=== PATIENT | female | born 1935 | race Caucasian/White ===

== ENCOUNTER → 2018-01-13 09:32 | Outpatient (CLI) | payer MEDICARE, SELFPAY ==
--- NOTE | 2018-01-13 | DI.ECHO.S_ITS ---
[place]---------+ [facility] +---------+ : : [address] : [address] : : : : [id number] : : : : Phone: [phone] Echocardiogram Report + + :Name: EDWARD MONREAL Study Date: 01/13/2018 Height: 68 in : :[facility] Weight: 139 lb : : Gender: Female BSA: 1.8 m2 : :: 1935 Age: 82 yrs BP: 190/88 mmHg: :Reason For Study: CAD : :Ordering Physician: Mark : :Juma Mckeon Performed By: Ling Cox : :Referring: Dr. Keith Grewal : + + Interpretation Summary Normal left ventricle size with ejection fraction 55-60%. Grade II diastolic dysfunction. Severely dilated left atrium. Mild aortic regurgitation. Mild mitral annular calcification. Mild both mitral valve leaflet prolapse. Mild to moderate mitral regurgitation. Mild to moderate tricuspid regurgitation. The right ventricular systolic pressure is estimated at 37 mmHg assuming a right atrial pressure of 3 mm Hg. Comparison is made with the echocardiogram of 01-03-15, diastolic dysfunction has worsen and left atrium size has increased. Procedure: A two-dimensional transthoracic echocardiogram with color flow and Doppler was performed. The study quality was technically adequate. Comparison is made with the echocardiogram of 01-03-15. The patient was in atrial fibrillation with heart rates between 61-64 bpm during the exam. Left Ventricle: The left ventricle is normal in size. There is normal left ventricular wall thickness. The ejection fraction is estimated to be 55-60%. There are no obvious focal wall motion abnormalities noted but poor endocardial definition reduces the sensitivity for the detection of such. Grade II diastolic dysfunction. Right Ventricle: The right ventricle grossly appears normal in size with probable normal systolic function. Atria: The left atrium is severely dilated. Right atrial size is normal. The interatrial septum is intact with no evidence for an atrial septal defect. Mitral Valve: The mitral valve leaflets appear mildly thickened, but open well. There is mild mitral annular calcification. There is mild mitral valve prolapse. There is mild to moderate mitral regurgitation. Aortic Valve: The aortic valve is trileaflet. The aortic valve opens well. There is mild aortic regurgitation. Tricuspid Valve: The tricuspid valve leaflets are thin and pliable. There is mild to moderate tricuspid regurgitation. The right ventricular systolic pressure is estimated at 37 mmHg assuming a right atrial pressure of 3 mm Hg. Pulmonic Valve: The pulmonic valve is normal in structure and function. There is trace pulmonic regurgitation. Great Vessels: The aortic root is normal size. The dimensions of the ascending aorta are normal. The IVC is of normal diameter and collapses greater than 50% with a sniff. This suggests a low right atrial pressure of 3 mm Hg. Pericardium/ Pleura There is no pericardial effusion. There is no pleural effusion. MMode/2D Measurements & Calculations LVIDd: 4.6 cm Ao root diam: 3.2 cm LVIDs: 3.3 cm Aortic Jxn: 2.6 cm FS: 27.6 % asc Aorta Diam: 3.2 cm EPSS: 0.31 cm Ao Arch Diam (Prox Trans): 2.5 cm IVSd: 0.77 cm LVPWd: 0.92 cm LV jimenez. diameter/BSA (cm/m^2): 2.6 LV sys. diameter/BSA (cm/m^2): 1.9 LA dimension: 4.1 cm RA long axis: 4.6 cm LA A2 area: 28.5 cm2 RA area: 16.9 cm2 LA A4 area: 28.3 cm2 RA vol: 53.2 ml LA length (vol): 5.8 cm RA : 30.4 ml/m2 LA vol: 117.7 ml IVC diam: 1.9 cm LA vol index: 67.2 ml/m2 RVDd major: 5.4 cm RVD1 (basal): 3.3 cm RVD2 (mid): 2.7 cm Doppler Measurements & Calculations Ao V2 max: 114.8 cm/sec MV E max steve: 90.8 cm/sec Ao V2 mean: 74.5 cm/sec MV A max steve: 86.4 cm/sec Ao max P.3 mmHg MV E/A: 1.1 Ao mean P.6 mmHg Med Peak E' Steve: 2.9 cm/sec Ao V2 VTI: 30.2 cm E/E' med: 30.8 Lat Peak E' Steve: 5.5 cm/sec E/E' lat: 16.4 E/e' average: 23.6 MV dec time: 0.23 sec MV P1/2t: 67.1 msec MR ERO: 0.07 cm2 TR max steve: 292.5 cm/sec MV P1/2t max steve: 90.3 cm/sec TR max P.2 mmHg MVA(P1/2t): 3.3 cm2 PA V2 max: 88.9 cm/sec PA V2 mean: 56.9 cm/sec PA mean P.5 mmHg PA Accel Time: 0.10 sec MR flow rate: 45.3 cm3/sec MR PISA radius: 0.44 cm Electronically signed by: Mark Mckeon on Reading Physician:01/13/2018 05:48 PM
== END ==
PROVIDERS: PCP Family Medicine; Visit Provider Internal Medicine Interventional Cardiology
DX: I25.10 Atherosclerotic heart disease of native coronary artery without angina pectoris (principal)
CPT/HCPCS: 93306

== ENCOUNTER → 2018-05-22 10:05 | Outpatient (CLI) | payer MEDICARE, SELFPAY | PROVIDERS: PCP Family Medicine; Visit Provider Family Medicine | DX: M85.852 Other specified disorders of bone density and structure, left thigh (principal); Z78.0 Asymptomatic menopausal state | CPT/HCPCS: 77080 ==

== ENCOUNTER → 2018-11-09 10:13 | Outpatient (REF) | payer MEDICARE, SELFPAY ==
[2018-11-09 10:32] LABS: INR 3.5 (0.9-1.3); Prothrombin Time 41.3 SECONDS (10.1-12.7)
== END ==
LOC: LAB 10:13
PROVIDERS: PCP Family Medicine; Visit Provider Family Medicine
DX: Z79.01 Long term (current) use of anticoagulants (principal)
CPT/HCPCS: 85610

== ENCOUNTER → 2018-12-06 08:50 | Outpatient (REF) | payer MEDICARE, SELFPAY ==
[2018-12-06 09:08] LABS: Prothrombin Time 59.1 SECONDS (10.1-12.7)
== END ==
LOC: LAB 08:50
PROVIDERS: PCP Family Medicine; Visit Provider Family Medicine
DX: Z79.01 Long term (current) use of anticoagulants (principal)
CPT/HCPCS: 85610

== ENCOUNTER → 2018-12-20 09:12 | Outpatient (ROUT) | payer MEDICARE, SELFPAY ==
[2018-12-20 10:01] LABS: INR 3.1 (0.9-1.3); Prothrombin Time 36.3 SECONDS (10.1-12.7)
== END ==
PROVIDERS: PCP Family Medicine; Visit Provider Family Medicine
DX: Z79.01 Long term (current) use of anticoagulants (principal)
CPT/HCPCS: 85610

== ENCOUNTER → 2019-01-03 11:25 | Outpatient (ROUT) | payer MEDICARE, SELFPAY ==
[2019-01-03 12:01] LABS: INR 4.1 (0.9-1.3); Prothrombin Time 48.5 SECONDS (10.1-12.7)
== END ==
PROVIDERS: PCP Family Medicine; Visit Provider Family Medicine
DX: Z79.01 Long term (current) use of anticoagulants (principal)
CPT/HCPCS: 85610

== ENCOUNTER → 2019-01-17 09:53 | Outpatient (ROUT) | payer MEDICARE, SELFPAY ==
[2019-01-17 09:59] LABS: INR 1.7 (0.9-1.3)
== END ==
PROVIDERS: PCP Family Medicine; Visit Provider Family Medicine
DX: Z79.01 Long term (current) use of anticoagulants (principal)
CPT/HCPCS: 85610

== ENCOUNTER → 2019-01-31 08:09 | Outpatient (ROUT) | payer MEDICARE, SELFPAY ==
[2019-01-31 08:18] LABS: INR 2.2 (0.9-1.3); Prothrombin Time 25.9 SECONDS (10.1-12.7)
== END ==
PROVIDERS: PCP Family Medicine; Visit Provider Family Medicine
DX: Z79.01 Long term (current) use of anticoagulants (principal)
CPT/HCPCS: 85610

== ENCOUNTER → 2019-02-19 09:43 | Outpatient (ROUT) | payer MEDICARE, SELFPAY ==
[2019-02-19 09:52] LABS: INR 1.4 (0.9-1.3)
== END ==
PROVIDERS: PCP Family Medicine; Visit Provider Student in an Organized Health Care Education/Training Program
DX: Z79.01 Long term (current) use of anticoagulants (principal)
CPT/HCPCS: 85610

== ENCOUNTER → 2019-03-01 08:26 | Outpatient (ROUT) | payer MEDICARE, SELFPAY ==
[2019-03-01 08:41] LABS: INR 1.3 (0.9-1.3); Prothrombin Time 15.1 SECONDS (10.1-12.7)
== END ==
PROVIDERS: PCP Family Medicine; Visit Provider Student in an Organized Health Care Education/Training Program
DX: Z79.01 Long term (current) use of anticoagulants (principal)
CPT/HCPCS: 85610

== ENCOUNTER → 2019-03-08 10:30 | Outpatient (ROUT) | payer MEDICARE, SELFPAY ==
[2019-03-08 10:40] LABS: INR 1.4 (0.9-1.3); Prothrombin Time 15.7 SECONDS (10.1-12.7)
== END ==
PROVIDERS: Visit Provider Student in an Organized Health Care Education/Training Program
DX: Z79.01 Long term (current) use of anticoagulants (principal)
CPT/HCPCS: 85610

== ENCOUNTER → 2019-03-22 09:05 | Outpatient (ROUT) | payer MEDICARE, SELFPAY ==
[2019-03-22 09:24] LABS: INR 1.6 (0.9-1.3); Prothrombin Time 18.2 SECONDS (10.1-12.7)
== END ==
PROVIDERS: Visit Provider Student in an Organized Health Care Education/Training Program
DX: Z79.01 Long term (current) use of anticoagulants (principal)
CPT/HCPCS: 85610

== ENCOUNTER → 2019-04-11 09:43 | Outpatient (ROUT) | payer MEDICARE, SELFPAY ==
[2019-04-11 10:02] LABS: INR 1.9 (0.9-1.3); Prothrombin Time 21.7 SECONDS (10.1-12.7)
== END ==
PROVIDERS: Visit Provider Student in an Organized Health Care Education/Training Program
DX: Z79.01 Long term (current) use of anticoagulants (principal)
CPT/HCPCS: 85610

== ENCOUNTER → 2019-07-11 08:53 | Outpatient (ROUT) | payer MEDICARE, SELFPAY ==
[2019-07-11 09:03] LABS: INR 2.7 (0.9-1.3); Prothrombin Time 31.6 SECONDS (10.1-12.7)
== END ==
PROVIDERS: Visit Provider Student in an Organized Health Care Education/Training Program
DX: Z79.01 Long term (current) use of anticoagulants (principal)
CPT/HCPCS: 85610

== ENCOUNTER → 2019-08-17 14:21 | Outpatient (ROUT) | payer MEDICARE, SELFPAY ==
[2019-08-17 14:41] LABS: INR 3.2 (0.9-1.3); Prothrombin Time 38.1 SECONDS (10.1-12.7)
== END ==
PROVIDERS: Visit Provider Student in an Organized Health Care Education/Training Program
DX: Z79.01 Long term (current) use of anticoagulants (principal)
CPT/HCPCS: 85610

== ENCOUNTER → 2019-09-12 11:16 | Outpatient (ROUT) | payer MEDICARE, SELFPAY ==
[2019-09-12 11:25] LABS: INR 1.9 (0.9-1.3); Prothrombin Time 22.1 SECONDS (10.1-12.7)
== END ==
PROVIDERS: Visit Provider Student in an Organized Health Care Education/Training Program
DX: Z79.01 Long term (current) use of anticoagulants (principal)
CPT/HCPCS: 85610

== ENCOUNTER → 2019-10-10 09:50 | Outpatient (ROUT) | payer MEDICARE, SELFPAY ==
[2019-10-10 10:15] LABS: INR 5.2 (0.9-1.3)
== END ==
PROVIDERS: Visit Provider Student in an Organized Health Care Education/Training Program
DX: Z79.01 Long term (current) use of anticoagulants (principal)
CPT/HCPCS: 85610

== ENCOUNTER → 2019-10-24 09:59 | Outpatient (ROUT) | payer MEDICARE, SELFPAY ==
[2019-10-24 10:18] LABS: INR 3.7 (0.9-1.3); Prothrombin Time 41.8 SECONDS (10.1-12.7)
== END ==
PROVIDERS: Visit Provider Student in an Organized Health Care Education/Training Program
DX: Z79.01 Long term (current) use of anticoagulants (principal)
CPT/HCPCS: 85610

== ENCOUNTER → 2019-11-07 11:40 | Outpatient (ROUT) | payer MEDICARE, SELFPAY ==
[2019-11-07 12:00] LABS: INR 2.1 (0.9-1.3); Prothrombin Time 23.8 SECONDS (10.1-12.7)
== END ==
PROVIDERS: Visit Provider Student in an Organized Health Care Education/Training Program
DX: Z79.01 Long term (current) use of anticoagulants (principal)
CPT/HCPCS: 85610

== ENCOUNTER → 2019-12-05 10:18 | Outpatient (ROUT) | payer MEDICARE, SELFPAY ==
[2019-12-05 10:30] LABS: INR 2.5 (0.9-1.3)
== END ==
PROVIDERS: Visit Provider Student in an Organized Health Care Education/Training Program
DX: Z79.01 Long term (current) use of anticoagulants (principal)
CPT/HCPCS: 85610

== ENCOUNTER 2020-01-10 05:16 | Observation (INO) | payer MEDICARE, SELFPAY ==
[2020-01-10] VITALS (11 sets, daily range): BP systolic 134–229; BP diastolic 67–108; PULSE 52–62; RESP 15–18; TEMP 36.1–36.6; O2SAT 92–98; BMI 24.5
--- NOTE | 2020-01-10 05:33 | ED.BACK ---
HPI - Back Pain/Injury <Gaurav Warren, DO - Last Filed: 01/12/20 07:46> General Chief Complaint: Back Pain/Injury Stated Complaint: middle back pain going to front Time Seen by Provider: 01/10/20 05:17 Source: patient and family Mode of arrival: Ambulatory Limitations: no limitations History of Present Illness HPI Narrative: 84F nonsmoker with history of HTN presents with her and the chief complaint of R flank and is beginning to wrap around her side. She states that at times it is very intense and at others it is more mellow. She states at times it worsens on its own. She denies fever or chills. She has had no N/V/D. She denies dysuria, frequency, or urgency. She denies any injury. She has no history of the same. MD Complaint: back pain Onset (ago): day(s) Duration: intermittent Similar Symptoms Previously: No Location: right flank Severity: moderate Quality: sharp and aching Radiation: flank Relieving factors: none Exacerbating factors: none Associated symptoms: denies other symptoms Related Data Home Medications Medication Instructions Recorded Confirmed MULTIVITAMIN (MULTI-VITAMINS) 1 tab PO Q DAY #0 02/17/11 01/10/20 aspirin 81 mg PO EVERY OTHER DAY #0 02/17/11 01/10/20 calcium carbonate-vitamin D3 1 cap PO QDAY #0 02/17/11 01/10/20 [Calcium 600 with Vitamin D3] cholecalciferol (vitamin D3) 300 unit PO QDAY #0 02/17/11 01/10/20 [Vitamin D3] omega [id number] oil [Fish Oil] 1,000 mg PO QDAY #0 02/17/11 01/10/20 simvastatin [Zocor] 40 mg PO QPM #0 02/17/11 01/10/20 PreserVision AREDS 1 cap PO QDAY #0 05/16/17 01/10/20 calcium polycarbophil [FiberCon] 1 tab PO QDAY #0 05/16/17 01/10/20 losartan 50 mg PO BID #0 05/16/17 01/10/20 melatonin 5 mg PO QPM #0 05/16/17 01/10/20 warfarin [Coumadin] See Rx Instructions .ROUTE 10/02/17 05/28/20 .COMPLEX #0 zolpidem 5 mg PO HSP PRN #0 05/16/17 01/10/20 Previous Rx's Medication Instructions Recorded atenolol 25 mg PO BID 30 Days #60 tab 01/11/20 psyllium husk [Metamucil] 2 tsp PO BID #660 gram 01/11/20 sennosides [senna] 8.6 mg PO BID #1 tab 01/11/20 Allergies Allergy/AdvReac Type Severity Reaction Status Date / Time amoxicillin [AMOXICILLIN] Allergy Severe Hives Verified 01/10/20 05:33 Sulfa (Sulfonamide Allergy Severe Hives Verified 01/10/20 05:34 Antibiotics) Review of Systems <Gaurav Warren, DO - Last Filed: 01/12/20 07:46> Constitutional Constitutional: Denies chills, Denies fatigue, Denies fever(s), Denies frequent falls, Denies lethargy and Denies weakness Eyes Eyes: Denies change in vision, Denies eye discharge, Denies irritation and Denies loss of vision ENT Ears, Nose, Mouth, and Throat: Denies change in voice, Denies dizziness, Denies neck pain, Denies sore throat and Denies throat swelling Cardiovascular Cardiovascular: Denies chest pain, Denies irregular heart rhythm, Denies lightheadedness, Denies palpitations, Denies dyspnea, Denies dyspnea on exertion and Denies orthopnea Respiratory Respiratory: Denies cough, Denies dyspnea, Denies dyspnea on exertion and Denies wheezing Gastrointestinal Gastrointestinal: Denies abdominal pain, Denies change in bowel habits, Denies diarrhea, Denies nausea and Denies vomiting Genitourinary Genitourinary: Denies hematuria, Denies flank pain, Denies urinary incontinence and Denies urinary urgency Musculoskeletal Musculoskeletal: Reports back pain, Denies muscle weakness, Denies neck pain, Denies numbness and Denies tingling Integumentary/Breasts Skin/Breast: Denies pruritus, Denies erythema, Denies rash and Denies wounds Neurologic Neurologic: Denies behavioral changes, Denies confusion, Denies dizziness, Denies frequent falls, Denies loss of vision, Denies numbness, Denies tingling and Denies weakness Psychiatric Psychiatric: Denies anxiety, Denies behavioral changes, Denies confusion, Denies depression, Denies homicidal ideation and Denies suicidal ideation Endocrine Endocrine: Denies fatigue, Denies flushing and Denies palpitations Hematologic/Lymphatic Hematologic/Lymphatic: Denies easy bruising Allergic/Immunologic Allergic/Immunologic: Denies urticaria, Denies throat swelling and Denies wheezing Patient History <Gaurav Warren DO - Last Filed: 01/12/20 07:46> Medical History (Updated 01/10/20 @ 13:09 by Fior Abdi MD) CAD (coronary artery disease) (Acute) Chronic anticoagulation (Acute) Hyperlipidemia (Acute) Hypertension (Acute) Paroxysmal atrial fibrillation with rapid ventricular response (Acute) Social History household members: spouse Smoking Status: Never smoker Smoking Status: Never smoker alcohol intake frequency: a few times a month Substance Use Type: does not use Exam <Gaurav Warren DO - Last Filed: 01/12/20 07:46> Narrative Exam Narrative: GENERAL: [84] year old patient appears stated age. Well-nourished, well-developed patient, in mild distress. HEAD: Atraumatic. Normocephalic. EYES: Pupils equal round and reactive. Extraocular motions intact. No scleral icterus. No injection or drainage. ENT: Nose without bleeding, purulent drainage. Throat without erythema, tonsillar hypertrophy or exudate. Airway patent. NECK: Trachea midline. Non tender CARDIOVASCULAR: Regular rate and rhythm without murmurs, gallops, or rubs. RESPIRATORY: Clear to auscultation. Breath sounds equal bilaterally. No wheezes, rales, or rhonchi. GASTROINTESTINAL: Abdomen soft, non-tender, nondistended. EXTREMITIES: No edema or joint tenderness. BACK: Nontender without deformity or crepitance. No flank tenderness. NEURO: AOx3. SKIN: No rash or erythema of visible areas Initial Vital Signs Initial Vital Signs: Vital Signs Temperature 97.8 F 01/10/20 05:23 Pulse Rate 62 01/10/20 05:23 Respiratory Rate 18 01/10/20 05:23 Blood Pressure 229/108 H 01/10/20 05:23 Pulse Oximetry 98 01/10/20 05:23 <Yaw Orona MD - Last Filed: 01/11/20 07:47> Initial Vital Signs Initial Vital Signs: Vital Signs Temperature 97.8 F 01/10/20 05:23 Pulse Rate 62 01/10/20 05:23 Respiratory Rate 18 01/10/20 05:23 Blood Pressure 229/108 H 01/10/20 05:23 Pulse Oximetry 98 01/10/20 05:23 Course <Gaurav Warren DO - Last Filed: 01/12/20 07:46> Orders Ordered: Discontinued Medications Acetaminophen (Tylenol) 650 mg PO Q4HR PRN PRN Reason: Fever/Mild Pain (1-3) Last Admin: 01/11/20 04:13 Dose: 650 mg Documented by: BERNICE Amlodipine Besylate (Norvasc) 5 mg PO DAILY [facility] Last Admin: 01/11/20 09:05 Dose: 5 mg Documented by: Admin: 01/10/20 12:56 Dose: 5 mg Documented by: USHA Atenolol (Tenormin) 100 mg PO DAILY [facility] Last Admin: 01/10/20 12:53 Dose: Not Given Documented by: USHA Atenolol (Tenormin) 100 mg PO NOW ONE Stop: 01/10/20 09:55 Last Admin: 01/10/20 12:25 Dose: Not Given Documented by: USHA Atenolol (Tenormin) 50 mg PO BID [facility] Last Admin: 01/10/20 22:19 Dose: Not Given Documented by: Admin: 01/10/20 12:32 Dose: 50 mg Documented by: USHA Atenolol (Tenormin) 25 mg PO BID [facility] Last Admin: 01/11/20 09:05 Dose: 25 mg Documented by: Admin: 01/10/20 21:45 Dose: 25 mg Documented by: JOHNNY Atenolol (Tenormin) 25 mg PO BID [facility] Sodium Chloride (Normal Saline 0.9%) 500 mls @ 1,000 mls/hr IV BOLUS ONE Stop: 01/10/20 06:00 Last Infusion: 01/10/20 06:04 Dose: 1,000 mls/hr Documented by: Admin: 01/10/20 05:38 Dose: 1,000 mls/hr Documented by: MMCFARL Sodium Chloride (Normal Saline 0.9%) 1,000 mls @ 125 mls/hr IV CONT [facility] Last Admin: 01/10/20 07:59 Dose: 125 mls/hr Documented by: BTONER Lactated Ringer's (Lactated Ringers) 1,000 mls @ 80 mls/hr IV CONT [facility] Last Infusion: 01/11/20 12:42 Dose: 0 mls/hr Documented by: Admin: 01/11/20 01:24 Dose: 80 mls/hr Documented by: Infusion: 01/11/20 01:24 Dose: 80 mls/hr Documented by: Admin: 01/10/20 12:05 Dose: 80 mls/hr Documented by: SUHA Ketorolac Tromethamine (Toradol) 10 mg IV NOW ONE Stop: 01/10/20 06:53 Last Admin: 01/10/20 06:56 Dose: 10 mg Documented by: ROSAFARDelvin Losartan Potassium (Cozaar) 50 mg PO NOW ONE Stop: 01/10/20 06:44 Last Admin: 01/10/20 07:57 Dose: 50 mg Documented by: JAMEY Losartan Potassium (Cozaar) 50 mg PO BID [facility] Last Admin: 01/11/20 09:05 Dose: 50 mg Documented by: Admin: 01/10/20 21:45 Dose: 50 mg Documented by: Admin: 01/10/20 11:58 Dose: Not Given Documented by: USHA Melatonin (Melatonin) 6 mg PO QPM [facility] Last Admin: 01/10/20 21:45 Dose: 6 mg Documented by: JOHNNY Morphine Sulfate (Morphine) 4 mg IV NOW ONE Stop: 01/10/20 08:41 Last Admin: 01/10/20 08:48 Dose: 4 mg Documented by: JAMEY Oxycodone HCl (Percolone) 5 mg PO Q4HR PRN PRN Reason: Pain, Moderate (4-6) Last Admin: 01/11/20 05:34 Dose: 5 mg Documented by: Admin: 01/10/20 22:07 Dose: 5 mg Documented by: Admin: 01/10/20 17:59 Dose: 5 mg Documented by: AIDAN Psyllium Hydrophilic Mucilloid (Metamucil Fiber Packet) 1 packet PO BID [facility] Sennosides (Senna) 8.6 mg PO BID [facility] Simvastatin (Zocor) 40 mg PO QPM [facility] Last Admin: 01/11/20 17:50 Dose: 40 mg Documented by: Admin: 01/10/20 17:58 Dose: 40 mg Documented by: AIDAN Zolpidem Tartrate (Ambien) 5 mg PO BEDTIME PRN PRN Reason: Insomnia Vital Signs Vital signs: Vital Signs - 8 hr 01/10/20 05:23 01/10/20 06:05 01/10/20 06:30 Temperature 97.8 F Pulse Rate 62 57 L 57 L Respiratory Rate 18 15 16 Blood Pressure 229/108 H Blood Pressure [Right Arm] 196/85 H 194/81 H Pulse Oximetry 98 95 95 01/10/20 06:35 Temperature Pulse Rate 58 L Respiratory Rate 16 Blood Pressure Blood Pressure [Right Arm] 194/81 H Pulse Oximetry 95 <Yaw Orona MD - Last Filed: 01/11/20 07:47> Orders Ordered: Discontinued Medications Acetaminophen (Tylenol) 650 mg PO Q4HR PRN PRN Reason: Fever/Mild Pain (1-3) Last Admin: 01/11/20 04:13 Dose: 650 mg Documented by: BERNICE Amlodipine Besylate (Norvasc) 5 mg PO DAILY [facility] Last Admin: 01/11/20 09:05 Dose: 5 mg Documented by: Admin: 01/10/20 12:56 Dose: 5 mg Documented by: USHA Atenolol (Tenormin) 100 mg PO DAILY [facility] Last Admin: 01/10/20 12:53 Dose: Not Given Documented by: USHA Atenolol (Tenormin) 100 mg PO NOW ONE Stop: 01/10/20 09:55 Last Admin: 01/10/20 12:25 Dose: Not Given Documented by: USHA Atenolol (Tenormin) 50 mg PO BID [facility] Last Admin: 01/10/20 22:19 Dose: Not Given Documented by: Admin: 01/10/20 12:32 Dose: 50 mg Documented by: USHA Atenolol (Tenormin) 25 mg PO BID [facility] Last Admin: 01/11/20 09:05 Dose: 25 mg Documented by: Admin: 01/10/20 21:45 Dose: 25 mg Documented by: JOHNNY Atenolol (Tenormin) 25 mg PO BID [facility] Sodium Chloride (Normal Saline 0.9%) 500 mls @ 1,000 mls/hr IV BOLUS ONE Stop: 01/10/20 06:00 Last Infusion: 01/10/20 06:04 Dose: 1,000 mls/hr Documented by: Admin: 01/10/20 05:38 Dose: 1,000 mls/hr Documented by: PIPER Sodium Chloride (Normal Saline 0.9%) 1,000 mls @ 125 mls/hr IV CONT [facility] Last Admin: 01/10/20 07:59 Dose: 125 mls/hr Documented by: JAMEY Lactated Ringer's (Lactated Ringers) 1,000 mls @ 80 mls/hr IV CONT [facility] Last Infusion: 01/11/20 12:42 Dose: 0 mls/hr Documented by: Admin: 01/11/20 01:24 Dose: 80 mls/hr Documented by: Infusion: 01/11/20 01:24 Dose: 80 mls/hr Documented by: Admin: 01/10/20 12:05 Dose: 80 mls/hr Documented by: USHA Ketorolac Tromethamine (Toradol) 10 mg IV NOW ONE Stop: 01/10/20 06:53 Last Admin: 01/10/20 06:56 Dose: 10 mg Documented by: PIPER Losartan Potassium (Cozaar) 50 mg PO NOW ONE Stop: 01/10/20 06:44 Last Admin: 01/10/20 07:57 Dose: 50 mg Documented by: JAMEY Losartan Potassium (Cozaar) 50 mg PO BID [facility] Last Admin: 01/11/20 09:05 Dose: 50 mg Documented by: Admin: 01/10/20 21:45 Dose: 50 mg Documented by: Admin: 01/10/20 11:58 Dose: Not Given Documented by: USHA Melatonin (Melatonin) 6 mg PO QPM [facility] Last Admin: 01/10/20 21:45 Dose: 6 mg Documented by: JOHNNY Morphine Sulfate (Morphine) 4 mg IV NOW ONE Stop: 01/10/20 08:41 Last Admin: 01/10/20 08:48 Dose: 4 mg Documented by: JAMEY Oxycodone HCl (Percolone) 5 mg PO Q4HR PRN PRN Reason: Pain, Moderate (4-6) Last Admin: 01/11/20 05:34 Dose: 5 mg Documented by: Admin: 01/10/20 22:07 Dose: 5 mg Documented by: Admin: 01/10/20 17:59 Dose: 5 mg Documented by: AIDAN Psyllium Hydrophilic Mucilloid (Metamucil Fiber Packet) 1 packet PO BID [facility] Sennosides (Senna) 8.6 mg PO BID [facility] Simvastatin (Zocor) 40 mg PO QPM [facility] Last Admin: 01/11/20 17:50 Dose: 40 mg Documented by: Admin: 01/10/20 17:58 Dose: 40 mg Documented by: AIDAN Zolpidem Tartrate (Ambien) 5 mg PO BEDTIME PRN PRN Reason: Insomnia Vital Signs Vital signs: Vital Signs - 8 hr 01/10/20 05:23 01/10/20 06:05 01/10/20 06:30 Temperature 97.8 F Pulse Rate 62 57 L 57 L Respiratory Rate 18 15 16 Blood Pressure 229/108 H Blood Pressure [Right Arm] 196/85 H 194/81 H Pulse Oximetry 98 95 95 01/10/20 06:35 Temperature Pulse Rate 58 L Respiratory Rate 16 Blood Pressure Blood Pressure [Right Arm] 194/81 H Pulse Oximetry 95 MDM - Back Pain/Injury <Gaurav Warren, - Last Filed: 01/12/20 07:46> Lab Data Result diagrams: 01/11/20 04:55 01/11/20 04:55 Labs: Lab Results 01/10/20 01/10/20 01/10/20 Range/Units 05:25 05:25 05:28 WBC 6.8 (4.5-11.0) X10^3/uL RBC 5.04 (4.0-5.2) X10^6/uL Hgb 15.6 (12.0-16.0) g/dL Hct 45.9 (36-46) % MCV 90.9 (80-100) fL MCH 31.0 (26-34) PG MCHC 34.1 (30-36) % RDW 13.7 (11.6-14.8) % Plt Count 195 (150-400) X10^3/uL Neut % (Auto) 32.7 L (50-75) % Lymph % (Auto) 55.1 H (25-40) % Phillips % (Auto) 9.6 (3-14) % Eos % (Auto) 2.0 (2-4) % Baso % (Auto) 0.6 (0-2) % Neut # (Auto) 2200 (7938-9816) /uL Lymph # (Auto) 3700 (9487-7065) /uL Phillips # (Auto) 700 (0-900) /uL Eos # (Auto) 100 (0-450) /uL Baso # (Auto) 0 (0-100) /uL PT 25.4 H (10.1-12.7) SECONDS INR 2.2 H (0.9-1.3) Sodium 136 L (137-145) mmol/L Potassium 4.2 (3.4-5.1) mmol/L Chloride 100 (98-107) mmol/L Carbon Dioxide 31 (22-32) mmol/L BUN 17 (7-17) mg/dL Creatinine 0.65 (0.52-1.04) mg/dL Estimated GFR > 60.0 (>60) mL/min BUN/Creatinine Ratio 26.2 H (6-22) Glucose 123 H (80-110) mg/dL Calcium 9.4 (8.4-10.2) mg/dL Total Bilirubin 0.6 (0.2-1.3) mg/dL AST 39 H (14-36) IU/L ALT 44 H (<35) IU/L Alkaline Phosphatase 56 (38-126) U/L Total Protein 7.5 (6.3-8.2) g/dL Albumin 4.3 (3.5-5.0) g/dL Globulin 3.2 (1.7-4.1) g/dL Albumin/Globulin Ratio 1.3 (1.0-2.8) Lipase 90 (23-300) U/L Urine RBC (0-5/HPF) Urine WBC (0-5/HPF) Ur Squamous Epith Cells (0-5/HPF) Urine Bacteria (None) Ur Culture Indicated? 01/10/20 Range/Units 06:54 WBC (4.5-11.0) X10^3/uL RBC (4.0-5.2) X10^6/uL Hgb (12.0-16.0) g/dL Hct (36-46) % MCV (80-100) fL MCH (26-34) PG MCHC (30-36) % RDW (11.6-14.8) % Plt Count (150-400) X10^3/uL Neut % (Auto) (50-75) % Lymph % (Auto) (25-40) % Phillips % (Auto) (3-14) % Eos % (Auto) (2-4) % Baso % (Auto) (0-2) % Neut # (Auto) (4326-8328) /uL Lymph # (Auto) (3429-1088) /uL Phillips # (Auto) (0-900) /uL Eos # (Auto) (0-450) /uL Baso # (Auto) (0-100) /uL PT (10.1-12.7) SECONDS INR (0.9-1.3) Sodium (137-145) mmol/L Potassium (3.4-5.1) mmol/L Chloride (98-107) mmol/L Carbon Dioxide (22-32) mmol/L BUN (7-17) mg/dL Creatinine (0.52-1.04) mg/dL Estimated GFR (>60) mL/min BUN/Creatinine Ratio (6-22) Glucose (80-110) mg/dL Calcium (8.4-10.2) mg/dL Total Bilirubin (0.2-1.3) mg/dL AST (14-36) IU/L ALT (<35) IU/L Alkaline Phosphatase (38-126) U/L Total Protein (6.3-8.2) g/dL Albumin (3.5-5.0) g/dL Globulin (1.7-4.1) g/dL Albumin/Globulin Ratio (1.0-2.8) Lipase (23-300) U/L Urine RBC None seen (0-5/HPF) Urine WBC 0-1/hpf (0-5/HPF) Ur Squamous Epith Cells 1-5 /hpf (0-5/HPF) Urine Bacteria Occasional (0-1) (None) Ur Culture Indicated? Specimen cultured Urine Dip Bedside Urine Glucose Negative Bedside Urine Bilirubin - Negative Bedside Urine Ketone - Negative Urine Specific [place] 1.010 Bedside Urine Occult Blood - Negative Bedside Urine pH 6.0 Bedside Urine Protein - Negative Bedside Urine Urobilinogen - Negative Bedside Urine Nitrite - Negative Bedside Urine Leukocytes + 70 Esterase <Yaw Orona MD - Last Filed: 01/11/20 07:47> Lab Data Labs: Lab Results 01/10/20 01/10/20 01/10/20 Range/Units 05:25 05:25 05:28 WBC 6.8 (4.5-11.0) X10^3/uL RBC 5.04 (4.0-5.2) X10^6/uL Hgb 15.6 (12.0-16.0) g/dL Hct 45.9 (36-46) % MCV 90.9 (80-100) fL MCH 31.0 (26-34) PG MCHC 34.1 (30-36) % RDW 13.7 (11.6-14.8) % Plt Count 195 (150-400) X10^3/uL Neut % (Auto) 32.7 L (50-75) % Lymph % (Auto) 55.1 H (25-40) % Phillips % (Auto) 9.6 (3-14) % Eos % (Auto) 2.0 (2-4) % Baso % (Auto) 0.6 (0-2) % Neut # (Auto) 2200 (4920-5722) /uL Lymph # (Auto) 3700 (4615-5042) /uL Phillips # (Auto) 700 (0-900) /uL Eos # (Auto) 100 (0-450) /uL Baso # (Auto) 0 (0-100) /uL PT 25.4 H (10.1-12.7) SECONDS INR 2.2 H (0.9-1.3) Sodium 136 L (137-145) mmol/L Potassium 4.2 (3.4-5.1) mmol/L Chloride 100 (98-107) mmol/L Carbon Dioxide 31 (22-32) mmol/L BUN 17 (7-17) mg/dL Creatinine 0.65 (0.52-1.04) mg/dL Estimated GFR > 60.0 (>60) mL/min BUN/Creatinine Ratio 26.2 H (6-22) Glucose 123 H (80-110) mg/dL Calcium 9.4 (8.4-10.2) mg/dL Total Bilirubin 0.6 (0.2-1.3) mg/dL AST 39 H (14-36) IU/L ALT 44 H (<35) IU/L Alkaline Phosphatase 56 (38-126) U/L Total Protein 7.5 (6.3-8.2) g/dL Albumin 4.3 (3.5-5.0) g/dL Globulin 3.2 (1.7-4.1) g/dL Albumin/Globulin Ratio 1.3 (1.0-2.8) Lipase 90 (23-300) U/L Urine RBC (0-5/HPF) Urine WBC (0-5/HPF) Ur Squamous Epith Cells (0-5/HPF) Urine Bacteria (None) Ur Culture Indicated? 01/10/20 Range/Units 06:54 WBC (4.5-11.0) X10^3/uL RBC (4.0-5.2) X10^6/uL Hgb (12.0-16.0) g/dL Hct (36-46) % MCV (80-100) fL MCH (26-34) PG MCHC (30-36) % RDW (11.6-14.8) % Plt Count (150-400) X10^3/uL Neut % (Auto) (50-75) % Lymph % (Auto) (25-40) % Phillips % (Auto) (3-14) % Eos % (Auto) (2-4) % Baso % (Auto) (0-2) % Neut # (Auto) (8310-2415) /uL Lymph # (Auto) (0814-3956) /uL Phillips # (Auto) (0-900) /uL Eos # (Auto) (0-450) /uL Baso # (Auto) (0-100) /uL PT (10.1-12.7) SECONDS INR (0.9-1.3) Sodium (137-145) mmol/L Potassium (3.4-5.1) mmol/L Chloride (98-107) mmol/L Carbon Dioxide (22-32) mmol/L BUN (7-17) mg/dL Creatinine (0.52-1.04) mg/dL Estimated GFR (>60) mL/min BUN/Creatinine Ratio (6-22) Glucose (80-110) mg/dL Calcium (8.4-10.2) mg/dL Total Bilirubin (0.2-1.3) mg/dL AST (14-36) IU/L ALT (<35) IU/L Alkaline Phosphatase (38-126) U/L Total Protein (6.3-8.2) g/dL Albumin (3.5-5.0) g/dL Globulin (1.7-4.1) g/dL Albumin/Globulin Ratio (1.0-2.8) Lipase (23-300) U/L Urine RBC None seen (0-5/HPF) Urine WBC 0-1/hpf (0-5/HPF) Ur Squamous Epith Cells 1-5 /hpf (0-5/HPF) Urine Bacteria Occasional (0-1) (None) Ur Culture Indicated? Specimen cultured Urine Dip Bedside Urine Glucose Negative Bedside Urine Bilirubin - Negative Bedside Urine Ketone - Negative Urine Specific [place] 1.010 Bedside Urine Occult Blood - Negative Bedside Urine pH 6.0 Bedside Urine Protein - Negative Bedside Urine Urobilinogen - Negative Bedside Urine Nitrite - Negative Bedside Urine Leukocytes + 70 Esterase Discharge Plan Departure Patient Disposition: Admitted as Observation Clinical Impression: Partial bowel obstruction Qualifiers: Intestinal obstruction type: unspecified Qualified Code(s): K56.600 - Partial intestinal obstruction, unspecified as to cause Discharge Date/Time: 01/10/20 09:40 Instructions: DI for Constipation, DI for Prescription Opioid Use Referrals: Karley Preston MD [Primary Care Provider] - Fior Abdi MD [Physician] - (Please call on Tuesday to make a follow up appointment to see Dr. Abdi in 2-4 weeks at the [facility] office) Admit Date/Time: 01/10/20 07:50 Admit Provider: Fior Abdi
[2020-01-10] MEDS: SODIUM CHLORIDE 0.9% 500 ML 1000 ML IV (05:38)
[2020-01-10 05:45] LABS: Add Manual Diff / Slide Review NO; Basophils Absolute Auto 0 /uL (0-100); Basophils Percent Auto 0.6 % (0-2); Eosinophils Absolute Auto 100 /uL (0-450); Hematocrit 45.9 % (36-46); Hemoglobin 15.6 g/dL (12.0-16.0); Lymphocytes Absolute Auto 3700 /uL (1100-4500); Lymphocytes Percent Auto 55.1 % (25-40); Mean Corpuscular HGB Conc 34.1 % (30-36); Mean Corpuscular Volume 90.9 fL (80-100); Monocytes Absolute Auto 700 /uL (0-900); Monocytes Percent Auto 9.6 % (3-14); Neutrophils Absolute Auto 2200 /uL (1500-7000); Neutrophils Percent Auto 32.7 % (50-75); Platelet Count 195 X10^3/uL (150-400); Red Blood Cell Count 5.04 X10^6/uL (4.0-5.2); Red Cell Distribution Width 13.7 % (11.6-14.8); White Blood Cell Count 6.8 X10^3/uL (4.5-11.0)
[2020-01-10 05:53] LABS: Alanine Aminotransferase 44 IU/L (<35); Albumin 4.3 g/dL (3.5-5.0); Albumin Globulin Ratio 1.3 (1.0-2.8); Alkaline Phosphatase 56 U/L (38-126); Aspartate Aminotransferase 39 IU/L (14-36); BUN Creatinine Ratio 26.2 (6-22); Bilirubin Total 0.6 mg/dL (0.2-1.3); Blood Urea Nitrogen 17 mg/dL (7-17); Calcium 9.4 mg/dL (8.4-10.2); Carbon Dioxide 31 mmol/L (22-32); Chloride 100 mmol/L (98-107); Estimated Glomerular Filt Rate > 60.0 mL/min (>60); Globulin 3.2 g/dL (1.7-4.1); Glucose 123 mg/dL (80-110); HEMOLYSIS 15 (0-50); Lipase 90 U/L (23-300); Potassium 4.2 mmol/L (3.4-5.1); Sodium 136 mmol/L (137-145); Total Protein 7.5 g/dL (6.3-8.2)
--- NOTE | 2020-01-10 06:16 | DI.CT.S_ITS ---
PROCEDURE: CT KIDNEY URETER BLADDER (KUB) INDICATIONS: R flank pain TECHNIQUE: Noncontrast 5 mm thick sections acquired from the diaphragms to the symphysis. 5 mm thick coronal and sagittal reformats were then performed. For radiation dose reduction, the following was used: automated exposure control, adjustment of mA and/or kV according to patient size. COMPARISON: None. FINDINGS: Image quality: Excellent. Lung bases: Lung bases are clear except for a small calcified granuloma lateral right lower lung. Heart size is normal. Urinary system: Both kidneys are normal in size. No kidney stones. No hydronephrosis or perinephric fat stranding. Both ureters appear non-dilated throughout their expected courses. Bladder wall thickness is normal; no calcified bladder stones. Other solid organs: Liver is normal in size. Gallbladder is free of inflammation are visualized calculus. Pancreas is normal in contours. Spleen is normal in size. No adrenal nodules. Peritoneum and bowel: Unenhanced bowel loops demonstrate normal wall thickness and caliber except for relatively prominent colonic obstipation bilaterally, right greater than left. No free fluid or air. Nodes and vessels: No retroperitoneal or mesenteric adenopathy by size criteria. Aorta and inferior vena cava are normal in caliber. Abdominal wall: No ventral hernias. Pelvis: No free pelvic fluid. No inguinal hernias or adenopathy. Bones: No suspicious bony lesions. No vertebral body compression fractures. IMPRESSION: No urinary tract stone is found, no inflammation through the abdomen or pelvis is identified. There is relatively prominent colonic obstipation, greater on the right than the left. This may explain current symptomatology. Dictated by: Waqas Trujillo M.D. on 01/10/2020 at 10:14 Approved by: Waqas Trujillo M.D. on 01/10/2020 at 10:17
[2020-01-10] MEDS: KETOROLAC 60 MG/2 ML VIAL 10 MG IV (06:56)
[2020-01-10 07:12] LABS: RBC Urine None Seen (0-5/HPF)
[2020-01-10 07:20] LABS: Bacteria Urine Occasional (0-1); Culture Indicated Urine Specimen Cultured; Squamous Epithelial Cell Urine 1-5 /HPF (0-5/HPF); WBC Urine 0-1/HPF (0-5/HPF)
[2020-01-10] MEDS: LOSARTAN 50 MG TABLET PO ×2 (07:57→21:45)
[2020-01-10] MEDS: SODIUM CHLORIDE 0.9% 1,000 ML 125 ML IV (07:59)
[2020-01-10] MEDS: MORPHINE 4 MG/ML INJ IV (08:48)
--- NOTE | 2020-01-10 08:55 | DI.RAD.S_ITS ---
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 FINDINGS: KUB: Preprocedural manager imaging film shows a normal bowel gas pattern. No suspicious abdominal calcifications. Visualized solid organ contours appear normal in size. No suspicious bony abnormalities. Moderate colonic obstipation. Esophagus: Air-contrast views demonstrate a normal mucosal pattern. On single-contrast views, there is normal peristalsis. No fixed strictures, extrinsic mass effects, or diverticula. No hiatal hernias or elicited gastroesophageal reflux. There is normal transit of a calibrated barium tablet through the esophagus. Stomach: The gastric lumen is normally distensible, and has normal rugal fold thickness. No mucosal masses or ulcers. The pylorus and duodenal bulb have a normal morphology. Small bowel: Duodenal folds appear normal in thickness. There is normal transit time of barium through the small intestine. Small bowel loops appear normal in caliber throughout. Jejunal and ileal folds are smooth and normal in thickness. No strictures, intraluminal masses, or extrinsic mass effects. The terminal ileum is identified and appears normal. IMPRESSION: Small sliding hiatal hernia incidentally noted. Normal transit time. Moderate colonic obstipation. No sign of small bowel obstruction or mass. Dictated by: Waqas Trujillo M.D. on 01/10/2020 at 16:52 Approved by: Waqas Trujillo M.D. on 01/10/2020 at 16:52
--- NOTE | 2020-01-10 09:01 | PM.HP.1 ---
History of Present Illness History of Present Illness Date Patient Seen: 01/10/20 Time Patient Seen: 09:01 Chief complaint: middle back pain going to front Narrative: This is an 84 year old woman with history of CAD, cardiac stent placement 13 years ago, atrial fibrillation on coumadin, who comes in with six days of right upper back pain that radiates anteriorly. She denies nausea, vomiting, or obstipation. She reports a history of collagenous colitis treated with budesonide about one year ago. She says her main symptom at that time was diarrhea. She had an EGD and colonosocpy at [facility] within the past year. She says she now has frequent constipation. She denies post prandial pain, but does report some reflux and heartburn if she eats the wrong things. Her right upper back pain has been constant for the past six days. She does not recall any particular inciting event except lifting some heavy items from the grocery store. 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 No other explanation was found for her pain. She describes pain as intense, constant and not affected by bending, walking or other movements. She denies nausea, vomiting, fever, chills, dysuria, shortness of breath, cough or chest pain. ROS: Thirteen system review is otherwise negative other than as mentioned below and in HPI. PE: GENERAL: Well groomed and cooperative. Appears stated age. Answers questions promptly and appropriately. Vital signs noted. HENT: Normocephalic, atraumatic. Hearing intact. Oral mucosa is pink and moist. EYES: Conjunctiva pink, sclera white, no periorbital swelling. CARDIOVASCULAR: Regular rate. No pedal edema. RESPIRATORY: Non-tachypneic, breathing comfortably on room air. GASTROINTESTINAL: Abdomen soft, slightly distended, no masses, no tenderness palpation GENITALURINARY: No flank tenderness. Back: no tenderness on palpation to back muscles ribs MUSCULOSKELETAL: Equal tone and mass bilaterally. SKIN: Warm, dry, soft, appropriate color for ethnicity. No other lesions, rashes, or wounds. NEURO: Alert and Oriented X 3. No gross sensory deficits, or cognitive issues. PSYCH: Appropriate affect and mood. Patient History Medical History (Updated 01/10/20 @ 13:09 by Fior Abdi MD) CAD (coronary artery disease) (Acute) Chronic anticoagulation (Acute) Hyperlipidemia (Acute) Hypertension (Acute) Paroxysmal atrial fibrillation with rapid ventricular response (Acute) Family & Social History Safety & Behavioral: Feels Safe in Current Yes Environment Tobacco & Substance use: Smoking Status Never smoker alcohol intake frequency a few times a month Substance Use Type does not use Meds Home Medications and Allergies Home Medications Medication Instructions Recorded Confirmed Type MULTIVITAMIN (MULTI-VITAMINS) 1 tab PO Q DAY #0 02/17/11 01/10/20 History aspirin 81 mg PO EVERY OTHER DAY #0 02/17/11 01/10/20 History atenolol 50 mg PO BID #0 02/17/11 01/10/20 History calcium carbonate-vitamin D3 1 cap PO QDAY #0 02/17/11 01/10/20 History [Calcium 600 with Vitamin D3] cholecalciferol (vitamin D3) 300 unit PO QDAY #0 02/17/11 01/10/20 History [Vitamin D3] omega 5-bwc-dip-fish oil [Fish Oil] 1,000 mg PO QDAY #0 02/17/11 01/10/20 History simvastatin [Zocor] 40 mg PO QPM #0 02/17/11 01/10/20 History PreserVision AREDS 1 cap PO QDAY #0 05/16/17 01/10/20 History calcium polycarbophil [FiberCon] 1 tab PO QDAY #0 05/16/17 01/10/20 History losartan 50 mg PO BID #0 05/16/17 01/10/20 History melatonin 5 mg PO QPM #0 05/16/17 01/10/20 History warfarin [Coumadin] See Rx Instructions .ROUTE 05/16/17 01/10/20 History .COMPLEX #0 zolpidem 5 mg PO HSP PRN #0 05/16/17 01/10/20 History Allergies Allergy/AdvReac Type Severity Reaction Status Date / Time amoxicillin [AMOXICILLIN] Allergy Severe Hives Verified 01/10/20 05:33 Sulfa (Sulfonamide Allergy Severe Hives Verified 01/10/20 05:34 Antibiotics) Exam Vital Signs (past 8 hours): - 01/10/20 05:23 01/10/20 06:05 01/10/20 06:30 Temperature 97.8 F Pulse Rate 62 57 L 57 L Respiratory Rate 18 15 16 Blood Pressure 229/108 H Blood Pressure [Right Arm] 196/85 H 194/81 H Pulse Oximetry 98 95 95 01/10/20 06:35 01/10/20 07:57 Temperature Pulse Rate 58 L 53 L Respiratory Rate 16 Blood Pressure 195/88 H Blood Pressure [Right Arm] 194/81 H Pulse Oximetry 95 Oxygen Delivery Method Nasal Cannula Oxygen Flow Rate [address] scan - abdomen: Radiologist's impression: [address] [address] [address] Scan Report Signed Patient: Maribel Lemons [facility]#: [id number] : 8Acct:[id number] Age/Sex: 84 / FDate of Service: 01/10/20 Loc: [id number] Accession Number: [id number] Procedure: CT kidney ureter bladder (KUB) Ordering Provider: Gaurav Warren D.O. PROCEDURE: CT KIDNEY URETER BLADDER (KUB) INDICATIONS: R flank pain TECHNIQUE: Noncontrast 5 mm thick sections acquired from the diaphragms to the symphysis. 5 mm thick coronal and sagittal reformats were then performed. For radiation dose reduction, the following was used: automated exposure control, adjustment of mA and/or kV according to patient size. COMPARISON: None. FINDINGS: Image quality: Excellent. Lung bases: Lung bases are clear except for a small calcified granuloma lateral right lower lung. Heart size is normal. Urinary system: Both kidneys are normal in size. No kidney stones. No hydronephrosis or perinephric fat stranding. Both ureters appear non-dilated throughout their expected courses. Bladder wall thickness is normal; no calcified bladder stones. Other solid organs: Liver is normal in size. Gallbladder is free of inflammation are visualized calculus. Pancreas is normal in contours. Spleen is normal in size. No adrenal nodules. Peritoneum and bowel: Unenhanced bowel loops demonstrate normal wall thickness and caliber except for relatively prominent colonic obstipation bilaterally, right greater than left. No free fluid or air. Nodes and vessels: No retroperitoneal or mesenteric adenopathy by size criteria. Aorta and inferior vena cava are normal in caliber. Abdominal wall: No ventral hernias. Pelvis: No free pelvic fluid. No inguinal hernias or adenopathy. Bones: No suspicious bony lesions. No vertebral body compression fractures. IMPRESSION: No urinary tract stone is found, no inflammation through the abdomen or pelvis is identified. There is relatively prominent colonic obstipation, greater on the right than the left. This may explain current symptomatology. Dictated by: Waqas Trujillo M.D. on 01/10/2020 at 10:14 Approved by: Waqas Trujillo M.D. on 01/10/2020 at 10:17 Labs Result Diagrams: 01/11/20 04:55 01/11/20 04:55 Labs: Laboratory Results - last 24 hr 01/10/20 01/10/20 01/10/20 05:25 05:25 06:54 WBC 6.8 RBC 5.04 Hgb 15.6 Hct 45.9 MCV 90.9 MCH 31.0 MCHC 34.1 RDW 13.7 Plt Count 195 Neut % (Auto) 32.7 L Lymph % (Auto) 55.1 H [place] % (Auto) 9.6 Eos % (Auto) 2.0 Baso % (Auto) 0.6 Neut # (Auto) 2200 Lymph # (Auto) 3700 [place] # (Auto) 700 Eos # (Auto) 100 Baso # (Auto) 0 Sodium 136 L Potassium 4.2 Chloride 100 Carbon Dioxide 31 BUN 17 Creatinine 0.65 Estimated GFR > 60.0 BUN/Creatinine Ratio 26.2 H Glucose 123 H Calcium 9.4 Total Bilirubin 0.6 AST 39 H ALT 44 H Alkaline Phosphatase 56 Total Protein 7.5 Albumin 4.3 Globulin 3.2 Albumin/Globulin Ratio 1.3 Lipase 90 Urine RBC None seen Urine WBC 0-1/hpf Ur Squamous Epith Cells 1-5 /hpf Urine Bacteria Occasional (0-1) Ur Culture Indicated? Specimen cultured Assessment & Plan Assessment and plan (1) Abnormal CT scan: Current visit: Yes Status: Acute (2) Constipation: Current visit: Yes Status: Acute (3) Upper back pain on right side: Current visit: Yes Status: Acute (4) Chronic anticoagulation: Current visit: Yes Status: Acute (5) Paroxysmal atrial fibrillation with rapid ventricular response: Current visit: Yes Status: Acute (6) Hyperlipidemia: Current visit: Yes Status: Acute (7) CAD (coronary artery disease): Problem details: s/p coronary stent distant past Current visit: Yes Status: Acute (8) Hypertension: Current visit: No Status: Acute (9) Atypical chest pain: Current visit: No Status: Acute Assessment & Plan narrative: This is an 84-year-old woman with right upper back pain radiating anteriorly, who was found to have her right colon and trapped between the liver and the chest wall on her CT scan (Chiliaditis syndrome). No other findings were identified to explain her pain. It is possible, although rare that this CT scan finding would be the cause of her pain. She was admitted for observation and further evaluation. We will rule out torsion or obstruction with SBFT, and evaluate for biliary dyskinesia with HIDA scan. I will ask the hospitalist to help rule out medical causes of her pain such as cardiac or pulmonary. COVID-19 test for possible OR Clear liquid diet SBFT today Possible hida scan if SBFT is normal Hospitalist consult to help rule out cardiac and other medical etiologies of her pain Quality VTE Deep Vein Thrombosis/Pulmonary Embolism Present on Admission: No
[2020-01-10 09:40] LABS: INR 2.2 (0.9-1.3); Prothrombin Time 25.4 SECONDS (10.1-12.7)
--- NOTE | 2020-01-10 09:58 | DI.RAD.S_ITS ---
PROCEDURE: XR CHEST 1V INDICATIONS: chest pain TECHNIQUE: One view of the chest was acquired. COMPARISON: [facility], , CHEST 1 VIEW, 05/16/2017, 11:56. FINDINGS: Surgical changes and devices: None. Lungs and pleura: Chronic emphysematous changes are seen. Calcified granuloma in right lower lobe and bilateral upper lobes are again seen, unchanged from prior study. No pleural effusions or pneumothorax. Mediastinum: Mediastinal contours appear normal. Heart size is enlarged. Bones and chest wall: No suspicious bony lesions. Overlying soft tissues appear unremarkable. IMPRESSION: No acute cardio pulmonary pathology. COPD. Dictated by: Anthony Olson M.D. on 01/10/2020 at 10:30 Approved by: Anthony Olson M.D. on 01/10/2020 at 10:30
[2020-01-10 10:33] LABS: Troponin I < 0.012 ng/mL (0.01-0.034)
[2020-01-10 10:51] LABS: COVID19 -Nasal RAPID Negative (Negative)
[2020-01-10] MEDS: LACTATED RINGERS 1,000 ML 80 ML IV (12:05)
--- NOTE | 2020-01-10 12:20 | PM.CN ---
History of Present Illness Consult details Date Patient Seen: 01/10/20 Time Patient Seen: 11:45 Chief complaint: middle back pain going to front Reason for consult: Back pain Requesting provider: Fior Abdi Narrative: Patient is an 84-year-old female with history of hypertension, paroxysmal AFib, on warfarin anticoagulation, CAD without history of CO, status post single coronary artery stent about 13 years ago for angina, who presented to emergency department with complaints of persistent severe pain in the right flank/back area. Patient states the discomfort started 6 days ago and was in the right mid to lower back but she had a hard time pinpointing exact area of pain. About 2 days ago the pain started radiate to the right side of the abdomen. She describes pain as intense, constant and not affected by bending, walking or other movements. She denies nausea, vomiting, fever, chills, dysuria, shortness of breath, cough or chest pain. Patient does note she had picked up heavy boxes in [employer] on the day before this pain started. She was diagnosed with collagenous colitis about a year ago after colonoscopy evaluation for diarrhea. She was treated with budesonide which she stopped about 1 and half months ago. She states that more recently she has had problems with constipation and hard stool. Patient was evaluated in the ER with CT reportedly showed right colon trapped by the liver. The official radiology report does note prominent colonic obstipation, greater on the right than the left. Patient's laboratory evaluation was unremarkable including CBC and chemistries. Vitals were normal except for bradycardia and blood pressure severely elevated. Patient states her heart rate usually runs in the 50s since she takes atenolol. Patient states her blood pressures have been well controlled, typically 115-140 at home but run higher in the doctor's office, up to 160/90 in clinic. Her blood pressures here have been in the range of 200-230/80s-108 which patient attributes to being in severe discomfort. Meds Home Medications and Allergies Home Medications Medication Instructions Recorded Confirmed Type MULTIVITAMIN (MULTI-VITAMINS) 1 tab PO Q DAY #0 02/17/11 01/10/20 History aspirin 81 mg PO EVERY OTHER DAY #0 02/17/11 01/10/20 History atenolol 50 mg PO BID #0 02/17/11 01/10/20 History calcium carbonate-vitamin D3 1 cap PO QDAY #0 02/17/11 01/10/20 History [Calcium 600 with Vitamin D3] cholecalciferol (vitamin D3) 300 unit PO QDAY #0 02/17/11 01/10/20 History [Vitamin D3] omega 5-imq-lsf-fish oil [Fish Oil] 1,000 mg PO QDAY #0 02/17/11 01/10/20 History simvastatin [Zocor] 40 mg PO QPM #0 02/17/11 01/10/20 History PreserVision AREDS 1 cap PO QDAY #0 05/16/17 01/10/20 History calcium polycarbophil [FiberCon] 1 tab PO QDAY #0 05/16/17 01/10/20 History losartan 50 mg PO BID #0 05/16/17 01/10/20 History melatonin 5 mg PO QPM #0 05/16/17 01/10/20 History warfarin [Coumadin] See Rx Instructions .ROUTE 05/16/17 01/10/20 History .COMPLEX #0 zolpidem 5 mg PO HSP PRN #0 05/16/17 01/10/20 History Allergies Allergy/AdvReac Type Severity Reaction Status Date / Time amoxicillin [AMOXICILLIN] Allergy Severe Hives Verified 01/10/20 05:33 Sulfa (Sulfonamide Allergy Severe Hives Verified 01/10/20 05:34 Antibiotics) Review of Systems Review of Systems ROS: Yes All systems reviewed with the patient and are negative except as otherwise documented Exam Vital Signs (past 8 hours): - 01/10/20 05:23 01/10/20 06:05 01/10/20 06:30 Temperature 97.8 F Pulse Rate 62 57 L 57 L Respiratory Rate 18 15 16 Blood Pressure 229/108 H Blood Pressure [Right Arm] 196/85 H 194/81 H Pulse Oximetry 98 95 95 01/10/20 06:35 01/10/20 07:57 01/10/20 10:00 Temperature 97.7 F Pulse Rate 58 L 53 L 60 Respiratory Rate 16 17 Blood Pressure 195/88 H 213/94 H Blood Pressure [Right Arm] 194/81 H Pulse Oximetry 95 94 01/10/20 10:02 Temperature Pulse Rate 52 L Respiratory Rate 16 Blood Pressure 214/89 H Blood Pressure [Right Arm] Pulse Oximetry 98 Oxygen Delivery Method Room Air Oxygen Flow Rate 0 Narrative Exam Narrative: General: Alert and pleasant female appears relatively comfortable lying in bed HEENT: Pupils equal, oropharynx unremarkable Neck: Supple without lymphadenopathy Lungs: Breathing nonlabored, clear to auscultation Heart: Normal S1 and S2, regular rhythm no murmur Back: No CVAT, spine or rib tenderness Abdomen: Nondistended, soft, nontender, no HSM, no abdominal mass Extremities: No edema Neurological: Sensorium intact, affect normal, nonfocal Objective Labs Result Diagrams: 01/10/20 05:25 01/10/20 05:25 Labs: Laboratory Results - last 24 hr 01/10/20 01/10/20 01/10/20 05:25 05:25 05:28 WBC 6.8 RBC 5.04 Hgb 15.6 Hct 45.9 MCV 90.9 MCH 31.0 MCHC 34.1 RDW 13.7 Plt Count 195 Neut % (Auto) 32.7 L Lymph % (Auto) 55.1 H [place] % (Auto) 9.6 Eos % (Auto) 2.0 Baso % (Auto) 0.6 Neut # (Auto) 2200 Lymph # (Auto) 3700 [place] # (Auto) 700 Eos # (Auto) 100 Baso # (Auto) 0 PT 25.4 H INR 2.2 H Sodium 136 L Potassium 4.2 Chloride 100 Carbon Dioxide 31 BUN 17 Creatinine 0.65 Estimated GFR > 60.0 BUN/Creatinine Ratio 26.2 H Glucose 123 H Calcium 9.4 Total Bilirubin 0.6 AST 39 H ALT 44 H Alkaline Phosphatase 56 Troponin I Total Protein 7.5 Albumin 4.3 Globulin 3.2 Albumin/Globulin Ratio 1.3 Lipase 90 Urine RBC Urine WBC Ur Squamous Epith Cells Urine Bacteria Ur Culture Indicated? COVID-19 PCR 01/10/20 01/10/20 01/10/20 06:54 08:50 09:24 WBC RBC Hgb Hct MCV MCH MCHC RDW Plt Count Neut % (Auto) Lymph % (Auto) [place] % (Auto) Eos % (Auto) Baso % (Auto) Neut # (Auto) Lymph # (Auto) [place] # (Auto) Eos # (Auto) Baso # (Auto) PT INR Sodium Potassium Chloride Carbon Dioxide BUN Creatinine Estimated GFR BUN/Creatinine Ratio Glucose Calcium Total Bilirubin AST ALT Alkaline Phosphatase Troponin I < 0.012 Total Protein Albumin Globulin Albumin/Globulin Ratio Lipase Urine RBC None seen Urine WBC 0-1/hpf Ur Squamous Epith Cells 1-5 /hpf Urine Bacteria Occasional (0-1) Ur Culture Indicated? Specimen cultured COVID-19 PCR Negative Assessment & Plan Assessment & Plan narrative: This is an 84-year-old female who presents with 6 days of severe right back pain and more recently pain radiating to the right abdomen. 1. Back/abdominal pain, right-sided, present on admission -this does not appear cardiac or pulmonary in etiology, her troponin is normal, her EKG shows sinus rhythm with PVC, ST depressions in V4 to V6, which is quite similar to a previous EKG. Her chest x-ray is normal as well. -labs unremarkable and Urinalysis without evidence of UTI. -pain is not affected by movement and does not appear musculoskeletal -patient notes recent problems with constipation and hard stools since she went off of medication for collagenous colitis, and her CT shows evidence of obstipation, she is getting a upper GI and small-bowel follow-through -recommend to further assess intra-abdominal etiology of discomfort 2. Acute hypertension, present on admission -patient with severe BP elevation likely pain related, states BP has been historically well controlled -continue home meds losartan 50 mg b.i.d. and atenolol 50 mg b.i.d. -start amlodipine 5 mg q.d. which can be discontinued once her blood pressure is stabilized 3. Paroxysmal atrial fibrillation, active -patient in sinus rhythm and rate controlled on atenolol with therapeutic INR -continue atenolol and resume warfarin if not having surgery
[2020-01-10] MEDS: atenoloL 50 MG TABLET PO (12:32)
[2020-01-10] MEDS: AMLODIPINE 5 MG TABLET PO (12:56)
--- NOTE | 2020-01-10 15:25 | DI.NM.S_ITS ---
PROCEDURE: NM HIDA WITH CCK PHARMACEUTICAL: 5.5 mCi Tc-99m mebrofenin IV; 1.2 mcg CCK IV. INDICATIONS: rule out biliary dyskinesia and cholecystitis TECHNIQUE: Following intravenous administration of Tc-99m mebrofenin, sequential anterior abdominal images were obtained. To evaluate the contractile response of the gallbladder in response to Cholecystokinin (CCK), sincalide (0.02 ?g/kg) was administered by slow intravenous infusion approximately 60 minutes after the administration of the radiopharmaceutical. Sequential imaging was continued for 30 minutes after the start of CCK infusion. Gallbladder ejection fraction was calculated. COMPARISON: None. FINDINGS: Biliary scan: There is normal tracer uptake and excretion by the liver. There is normal visualization of the intrahepatic ducts, common bile duct, and gallbladder. There is normal tracer transit into the duodenum. CCK stimulation: There is normal contractile response of the gallbladder to CCK infusion. The calculated gallbladder ejection fraction is 24%; normal values are above 35%. It has been shown that any patient abdominal pain after CCK administration is related to the rate of CCK injection, rather than to any underlying gallbladder disease (Clinical Nuclear Medicine 2012; 37: 63-70. Journal of Nuclear Medicine 2014; 55: 1-9). IMPRESSION: Normal hepatocytes uptake of radioisotope and also identification of the gallbladder over the course of the examination. This indicates patency of the cystic duct. Post-cholecystokinin ejection fraction however is reduced at 24% with lower limits of normal 35% Dictated by: Waqas Trujillo M.D. on 01/11/2020 at 14:51 Approved by: Waqas Trujillo M.D. on 01/11/2020 at 14:53
--- NOTE | 2020-01-10 17:15 | PC.NURSE ---
Addendum entered by Mala Kaplan R.N. 01/10/20 22:50: Pt reports 3-4 watery stools this evening shift. Is up independently in room. Warm blanket to right flank and right abdomen. Oxycodone to manage pain. Educated pt on plan of care for nuclear med study in a.m. 01/10. Addendum entered by Mala Kaplan R.N. 01/10/20 20:05: Pt reports good relief with oxycodone to manage right flank and abdominal pain. Original Note: Nuclear medicine phones this telegraphic typewriter installer for specific orders for 01/10 nuclear medicine study for this patient. metallurgical or materials technician reports has discussed same with Dr. Abdi. Pt sitting up in bed alert and awake and admits to right flank pain radiating to right abdomen 4/10, dull in nature. Denies nausea. No pain meds ordered per emar. Phone call to surgeon networks software consultant to request. Nuclear med orders for 01/10 study: NPO after 01/10, No opiates after 01/10, tylenol is okay. Nuc med test to take place 01/10 around [id number]. Needs to eat tonight or tomorrow morning prior to 0830 something to stimulate gallbladder.
[2020-01-10] MEDS: SIMVASTATIN 40 MG TABLET PO (17:58)
[2020-01-10] MEDS: OXYCODONE IR 5 MG TABLET PO ×2 (17:59→22:07)
[2020-01-10] MEDS: atenoloL 50 MG TABLET 25 MG PO (21:45)
[2020-01-10] MEDS: MELATONIN 3 MG TABLET 6 MG PO (21:45)
[2020-01-11] MEDS: LACTATED RINGERS 1,000 ML 80 ML IV (01:24)
--- NOTE | 2020-01-11 01:52 | PC.NURSE ---
Addendum entered by Ni Sena R.N. 01/11/20 05:38: Patient up to bathroom and reports moderate watery stool. Was given Tylenol earlier by SHARIF Cuellar, for 3/10 right flank pain and now states pain is not any better so medicated with Oxycodone. Original Note: Patient seen and assessed at 0000. Is alert and oriented except did not know what day of the month it is. Breath sounds CTA with RA sat of 92%. HR is regularly irregular; has hx of afib. Denies nausea. Denies pain. BT hypoactive but abdomen is soft and denies any tenderness. Has been voiding on toilet and denies dysuria, frequency or urgency. Is able to turn herself in bed. Evening RN reported patient is independent in room but requested patient call for SBA when getting out of bed at night; verbalizes understanding. Wearing bilateral calf SCD's. Fall risk score is moderate and bed alarm is activated for night time safety.
[2020-01-11 03:43] VITALS: BP 137/66; PULSE 66; RESP 16; TEMP 36.2; O2SAT 93
[2020-01-11] MEDS: ACETAMINOPHEN 325 MG TABLET 650 MG PO (04:13)
[2020-01-11 05:05] LABS: Add Manual Diff / Slide Review NO; Basophils Absolute Auto 0 /uL (0-100); Basophils Percent Auto 0.6 % (0-2); Eosinophils Absolute Auto 100 /uL (0-450); Eosinophils Percent Auto 1.2 % (2-4); Hematocrit 40.3 % (36-46); Hemoglobin 13.7 g/dL (12.0-16.0); Lymphocytes Absolute Auto 2100 /uL (1100-4500); Lymphocytes Percent Auto 38.3 % (25-40); Mean Corpuscular HGB Conc 33.9 % (30-36); Mean Corpuscular Hemoglobin 30.8 PG (26-34); Monocytes Absolute Auto 500 /uL (0-900); Monocytes Percent Auto 9.6 % (3-14); Neutrophils Absolute Auto 2800 /uL (1500-7000); Neutrophils Percent Auto 50.3 % (50-75); Platelet Count 155 X10^3/uL (150-400); Red Blood Cell Count 4.43 X10^6/uL (4.0-5.2); Red Cell Distribution Width 13.7 % (11.6-14.8); White Blood Cell Count 5.6 X10^3/uL (4.5-11.0)
[2020-01-11 05:14] LABS: Magnesium 1.8 mg/dL (1.6-2.3)
[2020-01-11 05:15] LABS: Alanine Aminotransferase 33 IU/L (<35); Albumin 3.4 g/dL (3.5-5.0); Albumin Globulin Ratio 1.3 (1.0-2.8); Alkaline Phosphatase 43 U/L (38-126); Aspartate Aminotransferase 30 IU/L (14-36); Bilirubin Total 0.7 mg/dL (0.2-1.3); Blood Urea Nitrogen 10 mg/dL (7-17); Calcium 8.7 mg/dL (8.4-10.2); Carbon Dioxide 31 mmol/L (22-32); Chloride 105 mmol/L (98-107); Estimated Glomerular Filt Rate > 60.0 mL/min (>60); Globulin 2.7 g/dL (1.7-4.1); Glucose 109 mg/dL (80-110); HEMOLYSIS < 15 (0-50); Potassium 4.2 mmol/L (3.4-5.1); Sodium 137 mmol/L (137-145); Total Protein 6.1 g/dL (6.3-8.2)
[2020-01-11] MEDS: OXYCODONE IR 5 MG TABLET PO (05:34)
[2020-01-11 08:43] VITALS: BP 149/63; PULSE 56; RESP 17; TEMP 37; O2SAT 93
[2020-01-11] MEDS: LOSARTAN 50 MG TABLET PO (09:05)
[2020-01-11] MEDS: atenoloL 50 MG TABLET 25 MG PO (09:05)
[2020-01-11] MEDS: AMLODIPINE 5 MG TABLET PO (09:05)
--- NOTE | 2020-01-11 11:27 | P.PN_ITS ---
Subjective Subjective Date Patient Seen: 01/11/20 Time Patient Seen: 09:30 Interval history: No acute events overnight. The patient had a SBFT yesterday and multiple bowel movements following the study. Her back pain was 1-2 out of ten after the SBFT, but increased in the evening requiring narcotic pain med. She denies nausea or abdominal pain. Exam Vital Signs (past 8 hours): - 01/11/20 03:43 01/11/20 08:43 Temperature 97.2 F L 98.6 F Pulse Rate 66 56 L Respiratory Rate 16 17 Blood Pressure 137/66 149/63 H Pulse Oximetry 93 93 Oxygen Delivery Method Room Air Oxygen Flow Rate 0 Narrative Exam Narrative: GENERAL: Alert, oriented. Appears stated age. Answers questions promptly and appropriately. Vital signs noted. HENT: Normocephalic, atraumatic. Hearing intact. Oral mucosa is pink and moist. EYES: Conjunctiva pink, sclera white, no periorbital swelling. CARDIOVASCULAR: Regular rate. No pedal edema. RESPIRATORY: Non-tachypneic, breathing comfortably on room air. GASTROINTESTINAL: Abdomen soft, slightly distended, no masses, no tenderness palpation GENITALURINARY: No flank tenderness. Back: no tenderness on palpation to back muscles or ribs MUSCULOSKELETAL: Equal tone and mass bilaterally. SKIN: Warm, dry, soft, appropriate color for ethnicity. No other lesions, rashes, or wounds. NEURO: Alert and Oriented X 3. No gross sensory deficits, or cognitive issues. PSYCH: Appropriate affect and mood. Objective Imaging Abdominal x-ray: My impression: Normal SBFT Radiologist's impression: [address] [address] XRay Report Signed Patient: Maribel Lemons [facility]#: [id number] : 8Acct:[id number] Age/Sex: 84 / FDate of Service: 01/10/20 Loc: ZO388-4 Accession Number: [id number] Procedure: ND upper GI small bowel Ordering Provider: Fior Abdi MD PROCEDURE: ND UPPER GI SMALL BOWEL INDICATIONS: chiliaditis synd; r/o PSBO, intermittent torsion right colon COMPARISON: None. 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 No suspicious abdominal calcifications. Visualized solid organ contours appear normal in size. No suspicious bony abnormalities. Moderate colonic obstipation. Esophagus: Air-contrast views demonstrate a normal mucosal pattern. On single- contrast views, there is normal peristalsis. No fixed strictures, extrinsic mass effects, or diverticula. No hiatal hernias or elicited gastroesophageal reflux. There is normal transit of a calibrated barium tablet through the esophagus. Stomach: The gastric lumen is normally distensible, and has normal rugal fold thickness. No mucosal masses or ulcers. The pylorus and duodenal bulb have a normal morphology. Small bowel: Duodenal folds appear normal in thickness. There is normal transit time of barium through the small intestine. Small bowel loops appear normal in caliber throughout. Jejunal and ileal folds are smooth and normal in thickness. No strictures, intraluminal masses, or extrinsic mass effects. The terminal ileum is identified and appears normal. IMPRESSION: Small sliding hiatal hernia incidentally noted. Normal transit time. Moderate colonic obstipation. No sign of small bowel obstruction or mass. Dictated by: Waqas Trujillo M.D. on 01/10/2020 at 16:52 Approved by: Waqas Trujillo M.D. on 01/10/2020 at 16:52 Labs Result Diagrams: 01/11/20 04:55 01/11/20 04:55 Labs: Laboratory Results - last 24 hr 01/11/20 01/11/20 01/11/20 04:55 04:55 04:55 WBC 5.6 RBC 4.43 Hgb 13.7 Hct 40.3 MCV 91.0 MCH 30.8 MCHC 33.9 RDW 13.7 Plt Count 155 Neut % (Auto) 50.3 Lymph % (Auto) 38.3 [place] % (Auto) 9.6 Eos % (Auto) 1.2 L Baso % (Auto) 0.6 Neut # (Auto) 2800 Lymph # (Auto) 2100 [place] # (Auto) 500 Eos # (Auto) 100 Baso # (Auto) 0 Sodium 137 Potassium 4.2 Chloride 105 Carbon Dioxide 31 BUN 10 Creatinine 0.50 L Estimated GFR > 60.0 BUN/Creatinine Ratio 20.0 Glucose 109 Calcium 8.7 Magnesium 1.8 Total Bilirubin 0.7 AST 30 ALT 33 Alkaline Phosphatase 43 Total Protein 6.1 L Albumin 3.4 L Globulin 2.7 Albumin/Globulin Ratio 1.3 Assessment & Plan Assessment and plan (1) Upper back pain on right side: Current visit: Yes Status: Acute (2) Constipation: Current visit: Yes Status: Acute (3) Abnormal CT scan: Current visit: Yes Status: Acute (4) Chronic anticoagulation: Current visit: Yes Status: Acute (5) Paroxysmal atrial fibrillation with rapid ventricular response: Current visit: Yes Status: Acute (6) CAD (coronary artery disease): Problem details: s/p coronary stent distant past Current visit: Yes Status: Acute (7) Partial bowel obstruction: Qualifiers: Intestinal obstruction type: unspecified Qualified Code(s): K56.600 - Partial intestinal obstruction, unspecified as to cause Current visit: Yes Status: Acute Assessment & Plan narrative: This is an 84 yo woman with unexplained right upper back pain. HIDA scan today will be done to rule out biliary diskinesia. If the HIDA is negative, we will plan to send her home on a bowel regimen to see if reducing her constipation may reduce the symptoms. If this is effective, we will not pursue colon resection. If not effective we will consider colon resection at a scheduled interval. If the HIDA scan is positive, we will consider lap lety on this admission. Plan: HIDA today dispo pending normal HIDA If pt discharged today she will go home on Metamucil BID and Senna BID, with plans to follow up with me in 2-3 weeks COVID-19 COVID-19 status: Negative Time Spent With Patient Time with patient: 15-24 minutes Quality VTE Deep Vein Thrombosis/Pulmonary Embolism Present on Admission: No
--- NOTE | 2020-01-11 11:48 | PC.NURSE ---
Addendum entered by Joao Siddiqui R.N. 01/11/20 14:43: Patient back to from HIDA scan. Dr. Moreira in with patient at this time. Addendum entered by Joao Siddiqui R.N. 01/11/20 12:42: Patient off of unit for hida scan Original Note: PATIENT DENIES N/V, REPORT RIGHT FLANK PAIN 08/24. DENIES NEED FOR TYLENOL THIS AM. NPO AT 0830 FOR HIDA SCAN. IF CLEAR, POSSIBLE DC HOME LATER TODAY. IV L FA INFILTRATED. NEW 22G IV R FA. PATIENT TOLERATED WELL. INDEP IN RM, STEADY ON FEET.
--- NOTE | 2020-01-11 13:49 | CM.DANOTE ---
Discharge Planning/Care Management DCP: assessment: case received, EMR reviewed, discussed in Team Rounds. Went to room to now to check in the pt. Found she is off the unit having a HIDA scan. Pt is an 84 year old who admitted for midback pain present and wosening for last 6 days. Admitted to care of [facility]: Dr. Abdi who did consult hospitalist Dr. Moreira for help in determining etiology of same. At this point Dr. Abdi states that if HIDA scan is negative pt will likely d/c to home on a bowel program. If test is positive a laproscopic cholecystectomy will be considered. P: DCP team will follow up prn after more is known to assist with d/c issues and options. Pt does live with her Jesus in [place]. She has a daughter Debbie Gaffney, also in [place]. Advanced directive, confirm from CLINIC Start: 01/10/20 11:39 Freq: Q24H Status: Active Protocol: Document 01/10/20 11:39 [facility] (Rec: 01/10/20 14:18 [facility] [id number]) Co-Signed By Yael Griffith RN 01/10/20 11:39 Advance Directive, confirm on record Time 14:17 Person contacted patient Copy received No Document 01/11/20 11:39 [facility] (Rec: 01/11/20 11:56 [facility] [id number]) Advance Directive, confirm on record Time 14:17 Person contacted patient Copy received No Time 11:56 Person contacted PATIENT Copy received No CM Discharge Assessment Start: 01/11/20 13:47 Freq: Status: Active Protocol: Document 01/11/20 13:48 ITV (Rec: 01/11/20 13:49 ITV [id number]) Discharge Planning Assessment Advance Directives? Yes History Provided By Medical Record Prior Living Arrangements RV Household Members spouse Comment Jesus: [phone] Independent with ADL's Yes Is patient alert and oriented? Yes Review Status In Process
[2020-01-11 14:35] VITALS: BP 143/58; PULSE 55; RESP 16; TEMP 37.1; O2SAT 94
[2020-01-11 15:47] VITALS: BP 130/75; PULSE 69; RESP 18; TEMP 35.7; O2SAT 95
--- NOTE | 2020-01-11 17:26 | PC.NURSE ---
Addendum entered by Mala Kaplan R.N. 01/11/20 19:31: Pt was given discharge instructions in written and verbal format. Prescriptions electronically transmitted to [facility] in [place] and pt made aware. Pt dresses self and gathers own belongings. Pt left hospital via wheelchair with this commercial insurance underwriter as escort with all personal belongings accounted for. Pt left hospital in stable condition to meet spouse in parking lot and assisted into private vehicle. Addendum entered by Mala Kaplan R.N. 01/11/20 18:44: Pt denies any right flank or abdominal pain. Moves about independently in room. Phone call to on-call physician, Dr. Meyers, and per surgeon's request, read radiologist impression of HIDA scan to MD. Per Dr. Meyers, pt may be discharged to home. Dr. Moreira in house and was informed. Dr. Moreira agreeable with discharge plan and amends atenolol order to adjust to 25 mg bid. IV removed intact from pt's right forearm. Original Note: Pt sitting up at side of bed taking diet well without complaints or difficulty. States desires to discharge to home if surgeon is agreeable to this plan. Awaiting MD to inform pt of today's exam. Will continue to monitor.
--- NOTE | 2020-01-11 17:45 | P.PN_ITS ---
Subjective Subjective Date Patient Seen: 01/11/20 Interval history: Patient reports significant improvement in her back pain radiating to right side of abdomen. We cut back on her atenolol dose due to bradycardia with heart rates in the low 50s. Exam Vital Signs (past 8 hours): - 01/11/20 14:35 01/11/20 15:47 Temperature 98.7 F 96.3 F L Pulse Rate 55 L 69 Respiratory Rate 16 18 Blood Pressure 143/58 H 130/75 Pulse Oximetry 94 95 Oxygen Delivery Method Room Air Oxygen Flow Rate 0 Objective Labs Result Diagrams: 01/11/20 04:55 01/11/20 04:55 Labs: Laboratory Results - last 24 hr 01/11/20 01/11/20 01/11/20 04:55 04:55 04:55 WBC 5.6 RBC 4.43 Hgb 13.7 Hct 40.3 MCV 91.0 MCH 30.8 MCHC 33.9 RDW 13.7 Plt Count 155 Neut % (Auto) 50.3 Lymph % (Auto) 38.3 [place] % (Auto) 9.6 Eos % (Auto) 1.2 L Baso % (Auto) 0.6 Neut # (Auto) 2800 Lymph # (Auto) 2100 [place] # (Auto) 500 Eos # (Auto) 100 Baso # (Auto) 0 Sodium 137 Potassium 4.2 Chloride 105 Carbon Dioxide 31 BUN 10 Creatinine 0.50 L Estimated GFR > 60.0 BUN/Creatinine Ratio 20.0 Glucose 109 Calcium 8.7 Magnesium 1.8 Total Bilirubin 0.7 AST 30 ALT 33 Alkaline Phosphatase 43 Total Protein 6.1 L Albumin 3.4 L Globulin 2.7 Albumin/Globulin Ratio 1.3 Assessment & Plan Assessment & Plan narrative: This is an 84-year-old female who presents with 6 days of severe right back pain and more recently pain radiating to the right abdomen. 1. Back/abdominal pain, right-sided, present on admission -surgery is evaluating patient for intra-abdominal source of discomfort -this does not appear cardiac or pulmonary in etiology, her troponin is normal, her EKG shows sinus rhythm with PVC, ST depressions in V4 to V6, which is quite similar to a previous EKG. Her chest x-ray is normal as well. -labs unremarkable and Urinalysis without evidence of UTI. -pain is not affected by movement and does not appear musculoskeletal -patient notes recent problems with constipation and hard stools since she went off of medication for collagenous colitis, and her CT shows evidence of obstipation, S PFT showed sliding hiatal hernia, HIDA scan was normal for gallbladder emptying 2. Acute hypertension, present on admission -patient with severe BP elevation likely pain related, states BP has been historically well controlled -continue home meds losartan 50 mg b.i.d. -amlodipine added but discontinued now that BP has stabilized -atenolol dose decreased from 50 mg down to 25 mg b.i.d. in light of excessive bradycardia with heart rate is in the low 50s 3. Paroxysmal atrial fibrillation, active -patient in sinus rhythm and rate controlled on atenolol with therapeutic INR -continue atenolol and resume warfarin if not having surgery Quality VTE Deep Vein Thrombosis/Pulmonary Embolism Present on Admission: No
[2020-01-11] MEDS: SIMVASTATIN 40 MG TABLET PO (17:50)
== END 2020-01-11 19:33 | disposition home or self-care (01) ==
LOC: ED 05:48 → AC 07:52
PROVIDERS: Emergency Medicine; Internal Medicine; Admitting Provider Surgery; Emergency Provider Emergency Medicine; PCP Student in an Organized Health Care Education/Training Program; Referring Provider Emergency Medicine; Visit Provider Surgery
DX: R93.89 Abnormal findings on diagnostic imaging of other specified body structures (principal); M54.89 Other dorsalgia; I10 Essential (primary) hypertension; I25.10 Atherosclerotic heart disease of native coronary artery without angina pectoris; E78.5 Hyperlipidemia, unspecified; I48.0 Paroxysmal atrial fibrillation; Z79.01 Long term (current) use of anticoagulants; K59.00 Constipation, unspecified; Z11.59 Encounter for screening for other viral diseases; K44.9 Diaphragmatic hernia without obstruction or gangrene
CPT/HCPCS: 36415; 71045; 74176; 74240; 74248; 78227; 80053; 81003; 81015; 83690; 83735; 84484; 85025; 85610; 87086; 87635; 93005; 96361; 96374; 96375; 99218; 99224; 99285; A9537; G0378; J1885; J2270; J2805

== ENCOUNTER → 2020-01-22 08:47 | Outpatient (ROUT) | payer MEDICARE, SELFPAY ==
[2020-01-10 11:05] VITALS: BMI 24.5
[2020-01-22 08:57] LABS: INR 2.2 (0.9-1.3); Prothrombin Time 24.7 SECONDS (10.1-12.7)
== END ==
PROVIDERS: PCP Student in an Organized Health Care Education/Training Program; Visit Provider Student in an Organized Health Care Education/Training Program
DX: Z79.01 Long term (current) use of anticoagulants (principal)
CPT/HCPCS: 85610

== ENCOUNTER → 2020-03-05 10:51 | Outpatient (ROUT) | payer MEDICARE, SELFPAY ==
[2020-01-10 11:05] VITALS: BMI 24.5
[2020-03-05 11:14] LABS: INR 2.6 (0.9-1.3); Prothrombin Time 29.3 SECONDS (10.1-12.7)
== END ==
PROVIDERS: PCP Student in an Organized Health Care Education/Training Program; Visit Provider Student in an Organized Health Care Education/Training Program
DX: Z79.01 Long term (current) use of anticoagulants (principal)
CPT/HCPCS: 85610

== ENCOUNTER → 2020-04-07 12:23 | Outpatient (ROUT) | payer MEDICARE, SELFPAY ==
[2020-01-10 11:05] VITALS: BMI 24.5
[2020-04-07 12:35] LABS: INR 1.9 (0.9-1.3); Prothrombin Time 21.3 SECONDS (10.1-12.7)
== END ==
PROVIDERS: PCP Student in an Organized Health Care Education/Training Program; Visit Provider Student in an Organized Health Care Education/Training Program
DX: Z79.01 Long term (current) use of anticoagulants (principal)
CPT/HCPCS: 85610

== ENCOUNTER → 2020-05-06 08:41 | Outpatient (ROUT) | payer MEDICARE, SELFPAY ==
[2020-01-10 11:05] VITALS: BMI 24.5
[2020-05-06 08:52] LABS: INR 2.3 (0.9-1.3); Prothrombin Time 26.8 SECONDS (10.1-12.7)
== END ==
PROVIDERS: PCP Student in an Organized Health Care Education/Training Program; Visit Provider Student in an Organized Health Care Education/Training Program
DX: Z79.01 Long term (current) use of anticoagulants (principal)
CPT/HCPCS: 85610

== ENCOUNTER → 2020-06-11 10:48 | Outpatient (ROUT) | payer MEDICARE, SELFPAY ==
[2020-01-10 11:05] VITALS: BMI 24.5
[2020-06-11 10:56] LABS: INR 2.1 (0.9-1.3); Prothrombin Time 23.5 SECONDS (10.1-12.7)
== END ==
PROVIDERS: PCP Student in an Organized Health Care Education/Training Program; Visit Provider Student in an Organized Health Care Education/Training Program
DX: Z79.01 Long term (current) use of anticoagulants (principal)
CPT/HCPCS: 85610

== ENCOUNTER → 2020-06-26 09:44 | Outpatient (CLI) | payer MEDICARE, SELFPAY ==
[2020-01-10 11:05] VITALS: BMI 24.5
== END ==
PROVIDERS: PCP Student in an Organized Health Care Education/Training Program; Referring Provider Student in an Organized Health Care Education/Training Program; Visit Provider Student in an Organized Health Care Education/Training Program
DX: M81.0 Age-related osteoporosis without current pathological fracture (principal); Z78.0 Asymptomatic menopausal state; Z82.62 Family history of osteoporosis
CPT/HCPCS: 77080

== ENCOUNTER → 2020-07-09 10:49 | Outpatient (ROUT) | payer MEDICARE, SELFPAY ==
[2020-01-10 11:05] VITALS: BMI 24.5
[2020-07-09 10:59] LABS: Prothrombin Time 22.6 SECONDS (10.1-12.7)
== END ==
PROVIDERS: PCP Student in an Organized Health Care Education/Training Program; Visit Provider Student in an Organized Health Care Education/Training Program
DX: I34.0 Nonrheumatic mitral (valve) insufficiency (principal); I48.91 Unspecified atrial fibrillation
CPT/HCPCS: 85610

== ENCOUNTER → 2020-08-12 10:46 | Outpatient (ROUT) | payer MEDICARE, SELFPAY ==
[2020-01-10 11:05] VITALS: BMI 24.5
[2020-08-12 11:03] LABS: INR 2.7 (0.9-1.3); Prothrombin Time 30.8 SECONDS (10.1-12.7)
== END ==
PROVIDERS: PCP Student in an Organized Health Care Education/Training Program; Visit Provider Student in an Organized Health Care Education/Training Program
DX: I34.0 Nonrheumatic mitral (valve) insufficiency (principal); I48.91 Unspecified atrial fibrillation
CPT/HCPCS: 85610

== ENCOUNTER → 2020-09-10 13:26 | Outpatient (ROUT) | payer MEDICARE, SELFPAY ==
[2020-01-10 11:05] VITALS: BMI 24.5
[2020-09-10 14:09] LABS: INR 2.1 (0.9-1.3); Prothrombin Time 23.5 SECONDS (10.1-12.7)
== END ==
PROVIDERS: PCP Student in an Organized Health Care Education/Training Program; Visit Provider Obstetrics & Gynecology
DX: I48.91 Unspecified atrial fibrillation (principal)
CPT/HCPCS: 85610

== ENCOUNTER → 2020-10-08 10:18 | Outpatient (ROUT) | payer MEDICARE, SELFPAY ==
[2020-01-10 11:05] VITALS: BMI 24.5
[2020-10-08 10:28] LABS: INR 3.1 (0.9-1.3); Prothrombin Time 35.5 SECONDS (10.1-12.7)
== END ==
PROVIDERS: PCP Student in an Organized Health Care Education/Training Program; Visit Provider Student in an Organized Health Care Education/Training Program
DX: Z79.01 Long term (current) use of anticoagulants (principal)
CPT/HCPCS: 85610

== ENCOUNTER → 2020-11-26 11:36 | Outpatient (ROUT) | payer MEDICARE, SELFPAY ==
[2020-01-10 11:05] VITALS: BMI 24.5
[2020-11-26 12:06] LABS: INR 2.3 (0.9-1.3); Prothrombin Time 26.2 SECONDS (10.1-12.7)
== END ==
PROVIDERS: PCP Student in an Organized Health Care Education/Training Program; Visit Provider Student in an Organized Health Care Education/Training Program
DX: Z79.01 Long term (current) use of anticoagulants (principal)
CPT/HCPCS: 85610

== ENCOUNTER → 2020-12-23 10:26 | Outpatient (ROUT) | payer MEDICARE, SELFPAY ==
[2020-01-10 11:05] VITALS: BMI 24.5
[2020-12-23 10:46] LABS: INR 2.2 (0.9-1.3)
== END ==
PROVIDERS: PCP Student in an Organized Health Care Education/Training Program; Visit Provider Student in an Organized Health Care Education/Training Program
DX: Z79.01 Long term (current) use of anticoagulants (principal)
CPT/HCPCS: 85610

== ENCOUNTER → 2021-01-21 12:27 | Outpatient (ROUT) | payer MEDICARE, SELFPAY ==
[2020-01-10 11:05] VITALS: BMI 24.5
[2021-01-21 13:10] LABS: INR 2.9 (0.9-1.3); Prothrombin Time 33.5 SECONDS (10.1-12.7)
== END ==
PROVIDERS: PCP Student in an Organized Health Care Education/Training Program; Visit Provider Student in an Organized Health Care Education/Training Program
DX: Z79.01 Long term (current) use of anticoagulants (principal)
CPT/HCPCS: 85610

== ENCOUNTER 2021-01-30 15:16 | Emergency (ER) | payer MEDICARE, SELFPAY ==
[2020-01-10 11:05] VITALS: BMI 24.5
[2021-01-30] VITALS (7 sets, daily range): BP systolic 105–123; BP diastolic 71–76; PULSE 79–131; RESP 12–20; TEMP 36.6–36.9; O2SAT 94–96; BMI 26.2
--- NOTE | 2021-01-30 15:20 | DI.RAD.S_ITS ---
PROCEDURE: XR CHEST 1V INDICATIONS: chest pain TECHNIQUE: One view of the chest was acquired. COMPARISON: [facility], CR, XR CHEST 1V, 01/10/2020, 10:06. FINDINGS: Surgical changes and devices: None. Lungs and pleura: Blunting of left costophrenic angle is seen suggestive of small left pleural effusion. No gross pneumothorax. No definite focal infiltrate. Mediastinum: Tortuous thoracic aorta with aortic arch calcifications are seen. Heart size is enlarged. Bones and chest wall: No suspicious bony lesions. Overlying soft tissues appear unremarkable. IMPRESSION: Small left pleural effusion . No definite focal infiltrate. No pneumothorax. Dictated by: Anthony Olson M.D. on 01/30/2021 at 16:28 Approved by: Anthony Olson M.D. on 01/30/2021 at 16:33
[2021-01-30 15:43] LABS: Add Manual Diff / Slide Review NO; Basophils Absolute Auto 0 /uL (0-100); Basophils Percent Auto 0.4 % (0-2); Eosinophils Absolute Auto 0 /uL (0-450); Eosinophils Percent Auto 0.6 % (2-4); Hematocrit 45.8 % (36-46); Hemoglobin 15.2 g/dL (12.0-16.0); Lymphocytes Absolute Auto 2700 /uL (1100-4500); Mean Corpuscular HGB Conc 33.2 % (30-36); Mean Corpuscular Hemoglobin 31.2 PG (26-34); Mean Corpuscular Volume 93.8 fL (80-100); Monocytes Absolute Auto 600 /uL (0-900); Monocytes Percent Auto 8.4 % (3-14); Neutrophils Absolute Auto 3800 /uL (1500-7000); Neutrophils Percent Auto 52.6 % (50-75); Platelet Count 185 X10^3/uL (150-400); Red Blood Cell Count 4.89 X10^6/uL (4.0-5.2); Red Cell Distribution Width 13.3 % (11.6-14.8); White Blood Cell Count 7.2 X10^3/uL (4.5-11.0)
--- NOTE | 2021-01-30 15:50 | ED.ARRPALP ---
HPI - Arrhythmia/Palpitations General Chief Complaint: Arrhythmia/Palpitations Stated Complaint: BP fluctuations,rapid heart rate,pain in neck/back Time Seen by Provider: 01/30/21 15:42 Source: patient Mode of arrival: Ambulatory Limitations: no limitations History of Present Illness HPI narrative: 85-year-old woman with history of paroxysmal atrial fibrillation, nonrheumatic mitral valve insufficiency, hypertension, colitis, hyperlipidemia, coronary artery disease post bare metal stent in the LAD and osteoporosis presents complaining of an episode of palpitations lasting 45 minutes to an hour this morning. She states that it quite feel right and over the course of the day she has no energy heaviness in her arms or in her legs, tightness in the neck and trapezius bilaterally and her chronic mid back osteoporosis pain has been bothering her a bit more. She has checked her blood pressure in found significant hypotension with systolics in the 50s increasing over the course of the morning. She comes in for further evaluation. She does note that over the last number of months she recently had her atenolol dose decreased from 50 b.i.d. to 25 mg b.i.d. she is also on amlodipine 2.5 mg b.i.d., losartan 50 mg, budesonide and Coumadin with most recent INR 2 days ago at 2.9. She notes that with her paroxysmal atrial fibrillation she notices brief minutes of palpitations. She states today that she has had more frequent episodes of brief palpitations, she is not currently aware that she is in fact in atrial fibrillation at a rate in the 110-120 range. Related Data Home Medications Medication Instructions Recorded Confirmed MULTIVITAMIN (MULTI-VITAMINS) 1 tab PO Q DAY #0 02/17/11 01/10/20 aspirin 81 mg PO EVERY OTHER DAY #0 02/17/11 01/10/20 calcium carbonate-vitamin D3 1 cap PO QDAY #0 02/17/11 01/10/20 [Calcium 600 with Vitamin D3] cholecalciferol (vitamin D3) 300 unit PO QDAY #0 02/17/11 01/10/20 [Vitamin D3] omega 0-cnc-vlp-fish oil [Fish Oil] 1,000 mg PO QDAY #0 02/17/11 01/10/20 simvastatin [Zocor] 40 mg PO QPM #0 02/17/11 01/10/20 PreserVision AREDS 1 cap PO QDAY #0 05/16/17 01/10/20 calcium polycarbophil [FiberCon] 1 tab PO QDAY #0 05/16/17 01/10/20 losartan 50 mg PO BID #0 05/16/17 01/10/20 melatonin 5 mg PO QPM #0 05/16/17 01/10/20 warfarin [Coumadin] See Rx Instructions .ROUTE 05/16/17 01/10/20 .COMPLEX #0 zolpidem 5 mg PO HSP PRN #0 05/16/17 01/10/20 Previous Rx's Medication Instructions Recorded psyllium husk [Metamucil] 2 tsp PO BID #660 gram 01/11/20 sennosides [senna] 8.6 mg PO BID #1 tab 01/11/20 Allergies Allergy/AdvReac Type Severity Reaction Status Date / Time amoxicillin [AMOXICILLIN] Allergy Severe Hives Verified 01/10/20 05:33 sulfamethoxazole Allergy Verified 01/30/21 16:12 [From ] trimethoprim [From ] Allergy Verified 01/30/21 16:12 Review of Systems Review of Systems Narrative: Pertinent positive and negative findings as per HPI Remainder of review of systems is otherwise unremarkable for Constitutional: Fevers, chills, weakness ENT: No sore throat, neck pain, ear pain CV: Chest pain, palpitations, Respiratory: Cough, wheeze, dyspnea GI: Nausea, vomiting, : Dysuria, hematuria, Patient History Medical History CAD (coronary artery disease) Chronic anticoagulation Hyperlipidemia Hypertension Paroxysmal atrial fibrillation with rapid ventricular response Social History household members: spouse Smoking Status: Never smoker Smoking Status: Never smoker alcohol intake frequency: a few times a month Substance Use Type: does not use Exam Narrative Exam Narrative: General: Healthy appearing, in no acute distress. Able to give a complete and coherent history. Well-nourished well-developed HEENT: Moist mucous membranes, normal sclera with reactive pupils, Neck: No JVD, supple Respiratory: Lungs are clear to auscultation, no wheezing no rales no rhonchi. Full and symmetrical air movement Cardiac: irregularly irregular but no murmurs no bruits Abdomen: Soft, nontender, good bowel tones, no flank pain Skin: Warm and dry, no rashes Neurologic: Grossly neurologically intact with no obvious asymmetries or abnormalities Extremities: No trauma, well perfused Psych: Cooperative, appropriate insight and affect Initial Vital Signs Initial Vital Signs: Vital Signs Temperature 97.9 F 01/30/21 15:20 Pulse Rate 121 H 01/30/21 15:20 Respiratory Rate 19 01/30/21 15:20 Blood Pressure 105/71 01/30/21 15:20 Pulse Oximetry 94 01/30/21 15:20 Course Orders Ordered: ED Orders 01/30/21 15:20 XR chest 1V Stat EKG-12 Lead Stat 01/30/21 15:30 Complete Blood Count AUTO DIFF Stat Comprehensive Metabolic Panel Stat Free T4, Direct Thyroxine Stat Lipase Stat Magnesium Stat TSH w/ Reflex to FT4 Stat Troponin & CK Cardiac Panel Stat 01/30/21 16:03 Prothrombin Time INR Stat Discontinued Medications Atenolol (Atenolol 50 Mg Tablet) 50 mg PO NOW ONE Stop: 01/30/21 17:28 Last Admin: 01/30/21 17:30 Dose: 50 mg Documented by: Vital Signs Vital signs: Vital Signs - 8 hr 01/30/21 15:20 01/30/21 15:28 01/30/21 15:30 Temperature 97.9 F Pulse Rate 121 H 131 H 124 H Respiratory Rate 19 16 12 Blood Pressure 105/71 Pulse Oximetry 94 95 95 01/30/21 15:45 01/30/21 16:13 01/30/21 17:05 Temperature 98.5 F Pulse Rate 124 H 106 H 80 Respiratory Rate 16 20 16 Blood Pressure 105/71 123/76 Pulse Oximetry 95 95 96 MDM - Arrhythmia/Palpitations Medical Records Attestation: I reviewed the patient's medical records. Lab Data Attestation: I reviewed the patient's lab results. Result diagrams: 01/30/21 15:30 01/30/21 15:30 Labs: Lab Results 01/30/21 01/30/21 01/30/21 Range/Units 15:30 15:30 15:30 WBC 7.2 (4.5-11.0) X10^3/uL RBC 4.89 (4.0-5.2) X10^6/uL Hgb 15.2 (12.0-16.0) g/dL Hct 45.8 (36-46) % MCV 93.8 (80-100) fL MCH 31.2 (26-34) PG MCHC 33.2 (30-36) % RDW 13.3 (11.6-14.8) % Plt Count 185 (150-400) X10^3/uL Neut % (Auto) 52.6 (50-75) % Lymph % (Auto) 38.0 (25-40) % [place] % (Auto) 8.4 (3-14) % Eos % (Auto) 0.6 L (2-4) % Baso % (Auto) 0.4 (0-2) % Neut # (Auto) 3800 (7761-9721) /uL Lymph # (Auto) 2700 (7322-2456) /uL [place] # (Auto) 600 (0-900) /uL Eos # (Auto) 0 (0-450) /uL Baso # (Auto) 0 (0-100) /uL PT (10.1-12.7) SECONDS INR (0.9-1.3) Sodium 139 (137-145) mmol/L Potassium 4.0 (3.4-5.1) mmol/L Chloride 104 (98-107) mmol/L Carbon Dioxide 28 (22-32) mmol/L BUN 20 H (7-17) mg/dL Creatinine 0.73 (0.52-1.04) mg/dL Estimated GFR > 60.0 (>60) mL/min BUN/Creatinine Ratio 27.4 H (6-22) Glucose 159 H (80-110) mg/dL Calcium 10.0 (8.4-10.2) mg/dL Magnesium 2.0 (1.6-2.3) mg/dL Total Bilirubin 0.5 (0.2-1.3) mg/dL AST 32 (14-36) IU/L ALT 45 H (<35) IU/L Alkaline Phosphatase 46 (38-126) U/L Total Creatine Kinase 27 L (30-135) U/L CK-MB (CK-2) TNP CK-MB (CK-2) Rel Index TNP Troponin I < 0.012 (0.01-0.034) ng/mL Total Protein 7.2 (6.3-8.2) g/dL Albumin 4.1 (3.5-5.0) g/dL Globulin 3.1 (1.7-4.1) g/dL Albumin/Globulin Ratio 1.3 (1.0-2.8) Lipase 68 (23-300) U/L TSH 0.03 L (0.47-4.68) uIU/mL Free T4 1.13 (0.78-2.19) ng/dL // Range/Units 16:03 WBC (4.5-11.0) X10^3/uL RBC (4.0-5.2) X10^6/uL Hgb (12.0-16.0) g/dL Hct (36-46) % MCV (80-100) fL MCH (26-34) PG MCHC (30-36) % RDW (11.6-14.8) % Plt Count (150-400) X10^3/uL Neut % (Auto) (50-75) % Lymph % (Auto) (25-40) % [place] % (Auto) (3-14) % Eos % (Auto) (2-4) % Baso % (Auto) (0-2) % Neut # (Auto) (1423-3904) /uL Lymph # (Auto) (6825-7065) /uL [place] # (Auto) (0-900) /uL Eos # (Auto) (0-450) /uL Baso # (Auto) (0-100) /uL PT 23.6 H D (10.1-12.7) SECONDS INR 2.1 H (0.9-1.3) Sodium (137-145) mmol/L Potassium (3.4-5.1) mmol/L Chloride (98-107) mmol/L Carbon Dioxide (22-32) mmol/L BUN (7-17) mg/dL Creatinine (0.52-1.04) mg/dL Estimated GFR (>60) mL/min BUN/Creatinine Ratio (6-22) Glucose (80-110) mg/dL Calcium (8.4-10.2) mg/dL Magnesium (1.6-2.3) mg/dL Total Bilirubin (0.2-1.3) mg/dL AST (14-36) IU/L ALT (<35) IU/L Alkaline Phosphatase (38-126) U/L Total Creatine Kinase (30-135) U/L CK-MB (CK-2) CK-MB (CK-2) Rel Index Troponin I (0.01-0.034) ng/mL Total Protein (6.3-8.2) g/dL Albumin (3.5-5.0) g/dL Globulin (1.7-4.1) g/dL Albumin/Globulin Ratio (1.0-2.8) Lipase (23-300) U/L TSH (0.47-4.68) uIU/mL Free T4 (0.78-2.19) ng/dL ABG Data Attestation: I personally reviewed and interpreted this ABG as follows: ECG Data Attestation: I personally reviewed and interpreted this ECG as follows: Interpretation: Atrial fibrillation at a rate of 108 normal axis no acute ischemic changes MDM Narrative Medical decision making narrative: 85-year-old woman with a history of paroxysmal atrial fibrillation for which she is anticoagulated on warfarin with current INR therapeutic. She woke this morning noting palpitations and heaviness down her arms and comes to the ER for further evaluation. She is otherwise minimally symptomatic. She is not dyspneic, she is having no chest pain, she is having no cognitive changes or acute neurologic findings. A couple of months ago her atenolol 50 b.i.d. was decreased to 25 mg b.i.d. as she was having episodes of bradycardia when she was in regular sinus rhythm. We discussed the option of cardioversion given the fact that she has been continuously on Coumadin in therapeutic range verses going back to 50 mg twice a day of atenolol for rate control and seeing if she converts spontaneously within the next 1-2 days. She and her discuss this and wanted to try the more conservative rate control option initially. I believe this is entirely safe and appropriate. Did encourage her to return to the emergency department if she has a rate that continues to be elevated or continues to be symptomatic over the next couple of days. Will ask her follow-up with her access control specialist in the near future. She is safe for home discharge Discharge Plan Departure Patient Disposition: Home Clinical Impression: Paroxysmal atrial fibrillation with rapid ventricular response Instructions: DI for Atrial Fibrillation Activity Restrictions/Additional Instructions: thank you for coming in today You are back in atrial fibrillation and it likely started this morning which is why you felt sluggish all day. Your lab work was reassuring with no sign of an acute heart attack or heart attack like syndrome. Your Coumadin level is perfect. as you are hemodynamically stable, you have multiple options available to you. We could choose to electrically cardiovert you today or we could increase your atenolol back to 50 mg morning and night and see if your heart spontaneously converts back to sinus rhythm. We opted to try the medication this evening and you are given 50 mg of atenolol in the emergency department. If you notice that your heart rate is regular and below a rate of 70 by tomorrow morning then please continue at your current 25 mg of atenolol morning and night. If you are still sensing palpitations and note that your heart rate is irregular and above 80, please increase your atenolol to 50 mg morning and night. If you continue to feel tired with the arm heaviness and want to consider other options for getting you back into regular rhythm, you can return to the emergency room at any time. Please do contact your access control specialist to schedule an appointment within the next 1-2 weeks. Prescriptions: No Action simvastatin [Zocor] 40 MG tablet 40 mg PO QPM Qty: 0 RF: 0 aspirin 81 MG tablet,chewable 81 mg PO EVERY OTHER DAY Qty: 0 RF: 0 omega 5-otf-oqm-fish oil [Fish Oil] 1,000 MG capsule 1,000 mg PO QDAY Qty: 0 RF: 0 calcium carbonate-vitamin D3 [Calcium 600 with Vitamin D3] 600 MG/200 IU capsule 1 cap PO QDAY Qty: 0 RF: 0 MULTIVITAMIN (MULTI-VITAMINS) 1 tab PO Q DAY Qty: 0 RF: 0 cholecalciferol (vitamin D3) [Vitamin D3] 400 unit capsule 300 unit PO QDAY Qty: 0 RF: 0 losartan 50 MG tablet 50 mg PO BID Qty: 0 RF: 0 calcium polycarbophil [FiberCon] 625 MG tablet 1 tab PO QDAY Qty: 0 RF: 0 zolpidem 5 MG tablet 5 mg PO HSP PRN (Reason: sleep) Qty: 0 RF: 0 warfarin [Coumadin] 5 MG tablet See Rx Instructions .ROUTE .COMPLEX Qty: 0 RF: 0 melatonin 5 MG tablet 5 mg PO QPM Qty: 0 RF: 0 PreserVision AREDS 1 EACH capsule 1 cap PO QDAY Qty: 0 RF: 0 Metamucil 3.4 gram/5.4 gram powder 2 tsp PO BID Qty: 660 RF: 0 sennosides [senna] 8.6 mg tablet 8.6 mg PO BID Qty: 1 RF: 0 Referrals: Karley Preston MD [Primary Care Provider] -
[2021-01-30 15:53] LABS: Alanine Aminotransferase 45 IU/L (<35); Albumin 4.1 g/dL (3.5-5.0); Albumin Globulin Ratio 1.3 (1.0-2.8); Alkaline Phosphatase 46 U/L (38-126); Aspartate Aminotransferase 32 IU/L (14-36); BUN Creatinine Ratio 27.4 (6-22); Bilirubin Total 0.5 mg/dL (0.2-1.3); Blood Urea Nitrogen 20 mg/dL (7-17); Carbon Dioxide 28 mmol/L (22-32); Chloride 104 mmol/L (98-107); Creatine Kinase 27 U/L (30-135); Estimated Glomerular Filt Rate > 60.0 mL/min (>60); Globulin 3.1 g/dL (1.7-4.1); Glucose 159 mg/dL (80-110); HEMOLYSIS < 15 (0-50); Lipase 68 U/L (23-300); Sodium 139 mmol/L (137-145); Total Protein 7.2 g/dL (6.3-8.2)
[2021-01-30 16:05] LABS: Troponin I < 0.012 ng/mL (0.01-0.034)
[2021-01-30 16:29] LABS: INR 2.1 (0.9-1.3); Prothrombin Time 23.6 SECONDS (10.1-12.7)
[2021-01-30 16:41] LABS: TSH w/ Reflex to FT4 0.03 uIU/mL (0.47-4.68)
[2021-01-30 17:17] LABS: Free T4, Direct Thyroxine 1.13 ng/dL (0.78-2.19)
[2021-01-30] MEDS: atenoloL 50 MG TABLET PO (17:30)
== END 2021-01-30 18:30 | disposition home or self-care (01) ==
PROVIDERS: Emergency Provider Emergency Medicine; PCP Student in an Organized Health Care Education/Training Program
DX: I48.0 Paroxysmal atrial fibrillation (principal); Z79.01 Long term (current) use of anticoagulants
CPT/HCPCS: 36415; 71045; 80053; 82550; 83690; 83735; 84439; 84443; 84484; 85025; 85610; 93005; 93010; 99284

== ENCOUNTER 2021-02-12 09:26 | Emergency (ER) | payer MEDICARE, SELFPAY ==
[2020-01-10 11:05] VITALS: BMI 24.5
[2021-02-12] VITALS (11 sets, daily range): BP systolic 103–147; BP diastolic 68–92; PULSE 99–132; RESP 18–26; TEMP 37.1; O2SAT 91–99; BMI 25.6
--- NOTE | 2021-02-12 09:48 | DI.RAD.S_ITS ---
PROCEDURE: XR CHEST 1V INDICATIONS: suspected sepsis TECHNIQUE: One view of the chest was acquired. COMPARISON: [facility], CR, XR CHEST 1V, 01/30/2021, 16:07. [facility], CR, XR CHEST 1V, 01/10/2020, 10:06. FINDINGS: Surgical changes and devices: None. Lungs and pleura: Lungs are mildly edematous. No pleural effusions or pneumothorax. Mediastinum: Mediastinal contours appear normal. Heart size is mildly enlarged. Bones and chest wall: No suspicious bony lesions. Overlying soft tissues appear unremarkable. IMPRESSION: Mild pulmonary edema pattern. Mild cardiomegaly. A focal pneumonia is not seen. Depending on the clinical status follow-up by CT scanning may become necessary. Dictated by: Waqas Trujillo M.D. on 02/12/2021 at 10:48 Approved by: Waqas Trujillo M.D. on 02/12/2021 at 10:50
[2021-02-12 10:14] LABS: COVID19 -Nasal RAPID Negative (Negative)
--- NOTE | 2021-02-12 10:16 | PC.NURSE ---
Patient reports some chills this morning, has not been feeling well my arms and legs feel like rubber, palpitations that haven't stopped Patient called Dr over hot days due to some lower BP readings. This morning BP slightly higher and took extra dose of atenolol. Denies chest pain at present. Overall feels weak.
[2021-02-12 10:39] LABS: Add Manual Diff / Slide Review NO; Basophils Absolute Auto 100 /uL (0-100); Basophils Percent Auto 0.5 % (0-2); Eosinophils Absolute Auto 0 /uL (0-450); Eosinophils Percent Auto 0.1 % (2-4); Hematocrit 41.5 % (36-46); Hemoglobin 13.5 g/dL (12.0-16.0); Lymphocytes Absolute Auto 1800 /uL (1100-4500); Lymphocytes Percent Auto 15.5 % (25-40); Mean Corpuscular HGB Conc 32.6 % (30-36); Mean Corpuscular Hemoglobin 30.6 PG (26-34); Mean Corpuscular Volume 94.1 fL (80-100); Monocytes Absolute Auto 1000 /uL (0-900); Monocytes Percent Auto 8.5 % (3-14); Neutrophils Absolute Auto 8600 /uL (1500-7000); Neutrophils Percent Auto 75.4 % (50-75); Platelet Count 170 X10^3/uL (150-400); Red Blood Cell Count 4.41 X10^6/uL (4.0-5.2); Red Cell Distribution Width 13.3 % (11.6-14.8); White Blood Cell Count 11.4 X10^3/uL (4.5-11.0)
[2021-02-12 11:01] LABS: Lactate (Lactic Acid) 1.3 mmol/L (0.7-2.1)
[2021-02-12 11:02] LABS: Alanine Aminotransferase 32 IU/L (<35); Albumin 3.8 g/dL (3.5-5.0); Albumin Globulin Ratio 1.3 (1.0-2.8); Alkaline Phosphatase 46 U/L (38-126); Aspartate Aminotransferase 29 IU/L (14-36); BUN Creatinine Ratio 26.6 (6-22); Bilirubin Total 0.7 mg/dL (0.2-1.3); Blood Urea Nitrogen 17 mg/dL (7-17); Calcium 9.3 mg/dL (8.4-10.2); Carbon Dioxide 31 mmol/L (22-32); Chloride 107 mmol/L (98-107); Estimated Glomerular Filt Rate > 60.0 mL/min (>60); Globulin 2.9 g/dL (1.7-4.1); Glucose 117 mg/dL (80-110); HEMOLYSIS < 15 (0-50); Lipase 63 U/L (23-300); Sodium 140 mmol/L (137-145); Total Protein 6.7 g/dL (6.3-8.2)
[2021-02-12 11:19] LABS: Procalcitonin < 0.03 ng/mL (<0.5)
[2021-02-12 12:32] LABS: INR 3.3 (0.9-1.3); Prothrombin Time 38.1 SECONDS (10.1-12.7)
[2021-02-12 12:34] LABS: Creatine Kinase 28 U/L (30-135)
[2021-02-12 12:35] LABS: PTT Partial Thromboplastin Tim 52 SECONDS (26.4-36.2)
[2021-02-12 12:47] LABS: NT-proBNP (BNP-Adult 18+) 6600 pg/mL (<450); Troponin I 0.017 ng/mL (0.01-0.034)
--- NOTE | 2021-02-12 12:50 | ED_ITS ---
HPI - Fever General Chief Complaint: Fever Stated Complaint: A fib,hear something in lungs/fever Time Seen by Provider: 02/12/21 12:09 Source: patient Mode of arrival: Ambulatory Limitations: no limitations History of Present Illness HPI Narrative: This is an 85-year-old female comes emergency department with complaint of fast heartbeat, which has been present intermittently. Patient has had increasing shortness of breath and swelling in her extremities. She has felt and fatigued generally tired. She denies any chest pressure or pain. She denies any syncope. Patient was seen here a couple weeks ago, she was in AFib with RVR at that time, patient's atenolol had been increased to 50 mg twice daily but patient decreased on her own after a week.. The week she was on 50 mg twice daily she was feeling improved but because she was feeling so much better she independently decreased her dose to 25 mg twice daily. Patient states she has not changed any other medications. She has noted when checking her pulse that it is elevated. She is anticoagulated on warfarin. Related Data Home Medications Medication Instructions Recorded Confirmed MULTIVITAMIN (MULTI-VITAMINS) 1 tab PO Q DAY #0 02/17/11 01/10/20 aspirin 81 mg chewable tablet 81 mg PO EVERY OTHER DAY #0 02/17/11 01/10/20 calcium carbonate-vitamin D3 600 1 cap PO QDAY #0 02/17/11 01/10/20 mg (1,500 mg)-400 unit capsule (Calcium 600 with Vitamin D3) cholecalciferol (vitamin D3) 10 300 unit PO QDAY #0 02/17/11 01/10/20 mcg (400 unit) capsule (Vitamin D3) omega 7-efs-yem-fish oil 1,000 mg 1,000 mg PO QDAY #0 02/17/11 01/10/20 (120 mg-180 mg) capsule (Fish Oil) simvastatin 40 mg tablet (Zocor) 40 mg PO QPM #0 02/17/11 01/10/20 calcium polycarbophil 625 mg 1 tab PO QDAY #0 05/16/17 01/10/20 tablet (FiberCon) losartan 50 mg tablet 50 mg PO BID #0 05/16/17 01/10/20 melatonin 5 mg tablet 5 mg PO QPM #0 05/16/17 01/10/20 vitamins A,C,Q-hhbo-tybvry 14,320 1 cap PO QDAY #0 05/16/17 01/10/20 unit-226 mg-200 unit capsule (PreserVision AREDS) warfarin 5 mg tablet (Coumadin) See Rx Instructions .ROUTE 05/16/17 01/10/20 .COMPLEX #0 zolpidem 5 mg tablet 5 mg PO HSP PRN #0 05/16/17 01/10/20 Previous Rx's Medication Instructions Recorded psyllium husk 3.4 gram/5.4 gram 2 tsp PO BID #660 gram 01/11/20 oral powder (Metamucil) sennosides 8.6 mg tablet (senna) 8.6 mg PO BID #1 tab 01/11/20 furosemide 40 mg tablet (Lasix) 40 mg PO DAILY #5 tab 02/12/21 Allergies Allergy/AdvReac Type Severity Reaction Status Date / Time amoxicillin [AMOXICILLIN] Allergy Severe Hives Verified 02/12/21 09:41 sulfamethoxazole Allergy Verified 02/12/21 09:41 [From Septra] trimethoprim [From Septra] Allergy Verified 02/12/21 09:41 Review of Systems Review of Systems ROS Unobtainable: All systems reviewed & are unremarkable except as noted in HPI and below Patient History Medical History CAD (coronary artery disease) Chronic anticoagulation Hyperlipidemia Hypertension Paroxysmal atrial fibrillation with rapid ventricular response Social History household members: spouse Smoking Status: Never smoker Smoking Status: Never smoker alcohol intake frequency: a few times a month Substance Use Type: does not use Exam Narrative Exam Narrative: GENERAL: Alert and oriented x three, female in mild distress. HEENT: Head normocephalic, atraumatic, EOMI, pupils reactive, face symmetric, moist mucous membranes NECK: Supple, full range of motion CARDIOVASCULAR: Tachycardic and Irregularly irregular rate and rhythm without murmurs, rubs or gallops. Mild JVD. RESPIRATORY: Breath sounds equal bilaterally, no wheezes rales or rhonchi. Bilateral crackles. ABDOMEN: Soft, nontender. Normoactive bowel sounds all 4 quadrants. No gua rding or rebound, rigidity, no mass : No CVA tenderness EXTREMITIES: Normal range of motion, mild bilateral lower extremity edema. Neurovascularly intact NEUROLOGICAL: Cranial nerves II through XII grossly intact. Moving all extremities SKIN: Warm, dry, no petechiae, no rashes or lesions. Initial Vital Signs Initial Vital Signs: Vital Signs Temperature 98.7 F 02/12/21 09:41 Pulse Rate 102 H 02/12/21 09:41 Respiratory Rate 18 02/12/21 09:41 Blood Pressure 147/92 H 02/12/21 09:41 Pulse Oximetry 94 02/12/21 09:41 Course Orders Ordered: ED Orders 02/12/21 13:05 Troponin I Stat 02/12/21 13:45 Urine Microscopic Stat Discontinued Medications Atenolol (Atenolol 50 Mg Tablet) 50 mg PO NOW ONE Stop: 02/12/21 13:08 Last Admin: 02/12/21 13:20 Dose: 50 mg Documented by: SHANTAL Furosemide (Furosemide 40 Mg/4 Ml Vial) 40 mg IV NOW ONE Stop: 02/12/21 13:08 Last Admin: 02/12/21 13:20 Dose: 40 mg Documented by: SHANTAL Reevaluation(s) Reevaluation #1: Recheck after oral medications patient's heart rate is trending downward. She would like to return home at this time. We discussed if she is having worsening symptoms she is still in AFib and still has slightly elevated heart rate that she should return if worsening. We discussed that she does appear to be in CHF and this could continue to worsened. Vital Signs Vital signs: Vital Signs - 8 hr 02/12/21 12:30 02/12/21 13:00 02/12/21 13:28 Pulse Rate 121 H 130 H 132 H Respiratory Rate 22 26 H 20 Blood Pressure 139/68 Pulse Oximetry 92 92 92 02/12/21 14:05 02/12/21 14:06 Pulse Rate 99 H 107 H Respiratory Rate 24 Blood Pressure 119/68 Pulse Oximetry 99 91 MDM - Fever Lab Data Result diagrams: 02/12/21 10:21 02/12/21 10:21 Labs: Lab Results 02/12/21 02/12/21 02/12/21 Range/Units 09:50 10:21 10:21 WBC 11.4 H (4.5-11.0) X10^3/uL RBC 4.41 (4.0-5.2) X10^6/uL Hgb 13.5 (12.0-16.0) g/dL Hct 41.5 (36-46) % MCV 94.1 (80-100) fL MCH 30.6 (26-34) PG MCHC 32.6 (30-36) % RDW 13.3 (11.6-14.8) % Plt Count 170 (150-400) X10^3/uL Neut % (Auto) 75.4 H (50-75) % Lymph % (Auto) 15.5 L (25-40) % [place] % (Auto) 8.5 (3-14) % Eos % (Auto) 0.1 L (2-4) % Baso % (Auto) 0.5 (0-2) % Neut # (Auto) 8600 H (0479-5699) /uL Lymph # (Auto) 1800 (6243-6351) /uL [place] # (Auto) 1000 H (0-900) /uL Eos # (Auto) 0 (0-450) /uL Baso # (Auto) 100 (0-100) /uL PT (10.1-12.7) SECONDS INR (0.9-1.3) APTT (26.4-36.2) SECONDS Sodium 140 (137-145) mmol/L Potassium 4.0 (3.4-5.1) mmol/L Chloride 107 (98-107) mmol/L Carbon Dioxide 31 (22-32) mmol/L BUN 17 (7-17) mg/dL Creatinine 0.64 (0.52-1.04) mg/dL Estimated GFR > 60.0 (>60) mL/min BUN/Creatinine Ratio 26.6 H (6-22) Glucose 117 H (80-110) mg/dL Lactate (0.7-2.1) mmol/L Calcium 9.3 (8.4-10.2) mg/dL Total Bilirubin 0.7 (0.2-1.3) mg/dL AST 29 (14-36) IU/L ALT 32 (<35) IU/L Alkaline Phosphatase 46 (38-126) U/L Total Creatine Kinase (30-135) U/L CK-MB (CK-2) CK-MB (CK-2) Rel Index Troponin I (0.01-0.034) ng/mL NT-Pro-B Natriuret Pep (<450) pg/mL Total Protein 6.7 (6.3-8.2) g/dL Albumin 3.8 (3.5-5.0) g/dL Globulin 2.9 (1.7-4.1) g/dL Albumin/Globulin Ratio 1.3 (1.0-2.8) Lipase 63 (23-300) U/L Procalcitonin < 0.03 (<0.5) ng/mL Urine RBC (0-5/HPF) Urine WBC (0-5/HPF) Ur Squamous Epith Cells (0-5/HPF) Urine Bacteria (None) Ur Culture Indicated? SARS-CoV-2 (PCR) Negative (Negative) 02/12/21 02/12/21 02/12/21 Range/Units 10:21 10:21 10:21 WBC (4.5-11.0) X10^3/uL RBC (4.0-5.2) X10^6/uL Hgb (12.0-16.0) g/dL Hct (36-46) % MCV (80-100) fL MCH (26-34) PG MCHC (30-36) % RDW (11.6-14.8) % Plt Count (150-400) X10^3/uL Neut % (Auto) (50-75) % Lymph % (Auto) (25-40) % [place] % (Auto) (3-14) % Eos % (Auto) (2-4) % Baso % (Auto) (0-2) % Neut # (Auto) (4231-6576) /uL Lymph # (Auto) (8397-0621) /uL [place] # (Auto) (0-900) /uL Eos # (Auto) (0-450) /uL Baso # (Auto) (0-100) /uL PT 38.1 H (10.1-12.7) SECONDS INR 3.3 H (0.9-1.3) APTT 52 H (26.4-36.2) SECONDS Sodium (137-145) mmol/L Potassium (3.4-5.1) mmol/L Chloride (98-107) mmol/L Carbon Dioxide (22-32) mmol/L BUN (7-17) mg/dL Creatinine (0.52-1.04) mg/dL Estimated GFR (>60) mL/min BUN/Creatinine Ratio (6-22) Glucose (80-110) mg/dL Lactate 1.3 (0.7-2.1) mmol/L Calcium (8.4-10.2) mg/dL Total Bilirubin (0.2-1.3) mg/dL AST (14-36) IU/L ALT (<35) IU/L Alkaline Phosphatase (38-126) U/L Total Creatine Kinase 28 L (30-135) U/L CK-MB (CK-2) TNP CK-MB (CK-2) Rel Index TNP Troponin I 0.017 (0.01-0.034) ng/mL NT-Pro-B Natriuret Pep 6600 H (<450) pg/mL Total Protein (6.3-8.2) g/dL Albumin (3.5-5.0) g/dL Globulin (1.7-4.1) g/dL Albumin/Globulin Ratio (1.0-2.8) Lipase (23-300) U/L Procalcitonin (<0.5) ng/mL Urine RBC (0-5/HPF) Urine WBC (0-5/HPF) Ur Squamous Epith Cells (0-5/HPF) Urine Bacteria (None) Ur Culture Indicated? SARS-CoV-2 (PCR) (Negative) 02/12/21 02/12/21 Range/Units 13:05 13:45 WBC (4.5-11.0) X10^3/uL RBC (4.0-5.2) X10^6/uL Hgb (12.0-16.0) g/dL Hct (36-46) % MCV (80-100) fL MCH (26-34) PG MCHC (30-36) % RDW (11.6-14.8) % Plt Count (150-400) X10^3/uL Neut % (Auto) (50-75) % Lymph % (Auto) (25-40) % [place] % (Auto) (3-14) % Eos % (Auto) (2-4) % Baso % (Auto) (0-2) % Neut # (Auto) (3553-2630) /uL Lymph # (Auto) (9842-9726) /uL [place] # (Auto) (0-900) /uL Eos # (Auto) (0-450) /uL Baso # (Auto) (0-100) /uL PT (10.1-12.7) SECONDS INR (0.9-1.3) APTT (26.4-36.2) SECONDS Sodium (137-145) mmol/L Potassium (3.4-5.1) mmol/L Chloride (98-107) mmol/L Carbon Dioxide (22-32) mmol/L BUN (7-17) mg/dL Creatinine (0.52-1.04) mg/dL Estimated GFR (>60) mL/min BUN/Creatinine Ratio (6-22) Glucose (80-110) mg/dL Lactate (0.7-2.1) mmol/L Calcium (8.4-10.2) mg/dL Total Bilirubin (0.2-1.3) mg/dL AST (14-36) IU/L ALT (<35) IU/L Alkaline Phosphatase (38-126) U/L Total Creatine Kinase (30-135) U/L CK-MB (CK-2) CK-MB (CK-2) Rel Index Troponin I < 0.012 (0.01-0.034) ng/mL NT-Pro-B Natriuret Pep (<450) pg/mL Total Protein (6.3-8.2) g/dL Albumin (3.5-5.0) g/dL Globulin (1.7-4.1) g/dL Albumin/Globulin Ratio (1.0-2.8) Lipase (23-300) U/L Procalcitonin (<0.5) ng/mL Urine RBC 0-1/hpf (0-5/HPF) Urine WBC 1-5/hpf (0-5/HPF) Ur Squamous Epith Cells 1-5 /hpf (0-5/HPF) Urine Bacteria Few (2-10) H (None) Ur Culture Indicated? Cult not indicated SARS-CoV-2 (PCR) (Negative) Urine Dip Bedside Urine Glucose Negative Bedside Urine Bilirubin - Negative Bedside Urine Ketone +/- 5 Urine Specific [place] 1.030 Bedside Urine Occult Blood +/- Bedside Urine pH 6.0 Bedside Urine Protein - Negative Bedside Urine Urobilinogen - Negative Bedside Urine Nitrite - Negative Bedside Urine Leukocytes - Negative Esterase Imaging Data Chest x-ray: Radiologist's Impression: [facility] [place] [id number] ReportSigned Patient: Maribel Lemons [facility]#: [id number]: 8Acc t:[id number]/Sex: 85 / FDate of Service: 02/12/21Loc: EDAccession Number: [id number] Procedure: XR chest 1V Ordering Provider: Lillian Isidro D.O. PROCEDURE: XR CHEST 1V INDICATIONS: suspected sepsis TECHNIQUE: One view of the chest was acquired. COMPARISON: [facility], CR, XR CHEST 1V, 01/30/2021, 16:07. [facility], CR, XR CHEST 1V, 01/10/2020, 10:06. FINDINGS: Surgical changes and devices: None. Lungs and pleura: Lungs are mildly edematous. No pleural effusions or pneumothorax. Mediastinum: Mediastinal contours appear normal. Heart size is mildly enlarged. Bones and chest wall: No suspicious bony lesions. Overlying soft tissues appear unremarkable. IMPRESSION: Mild pulmonary edema pattern. Mild cardiomegaly. A focal pneumonia is not seen. Depending on the clinical status follow-up by CT scanning may become necessary. Dictated by: Waqas Trujillo M.D. on 02/12/2021 at 10:48 Approved by: Waqas Trujillo M.D. on 02/12/2021 at 10:50 ECG Data Interpretation: AFib with rapid ventricular be to rate 125, QRS of 96 and QTC of 467. Possible depression in lateral leads. No elevation noted. MDM Narrative Medical decision making narrative: Patient was offered cardioversion. She politely refuses on the grounds that she would likely develop AFib in the future again and she feels this is not helpful. She would prefer to try medication. Patient also prefers to return home. We gave patient atenolol 50 mg she is having some improvement here in the department she is more consistently at 100 and dipping into the 90s regularly with for her heart rate. She has follow-up with Cardiology on the 19 of February. Patient's labs do show an elevated BNP, mildly elevated white count which may be reactive and her procalcitonin is negative today with no other signs of sepsis or infection. Troponin is negative. Patient is likely to have worsening symptoms and was encouraged to return. Discharge Plan Departure Patient Disposition: Home Clinical Impression: Atrial fibrillation with RVR, CHF (congestive heart failure) Instructions: DI for Heart Failure Activity Restrictions/Additional Instructions: Follow-up with a configuration management advisor at your appointment on Tuesday. Today you are in AFib with RVR, likely it is worsened because you had decreased your atenolol. Please return to 50 mg twice daily for your atenolol. As you have elected not to have cardioversion today you are still in atrial fibrillation but her rate has been improving in the department. I would also recommend taking Lasix daily until gone. Discussed with your physician/configuration management advisor they may wish to adjust your medications. Prescription to [facility] in [place] Please return for fevers, lightheadedness or passing out, worsening or persistent tachycardia fast heartbeat, increasing swelling of your extremities, new shortness of breath, or other new or concerning symptoms Prescriptions: New furosemide [Lasix] 40 mg tablet 40 mg PO DAILY Qty: 5 RF: 0 No Action simvastatin [Zocor] 40 MG tablet 40 mg PO QPM Qty: 0 RF: 0 aspirin 81 MG tablet,chewable 81 mg PO EVERY OTHER DAY Qty: 0 RF: 0 omega 2-rmw-mok-fish oil [Fish Oil] 1,000 MG capsule 1,000 mg PO QDAY Qty: 0 RF: 0 calcium carbonate-vitamin D3 [Calcium 600 with Vitamin D3] 600 MG/200 IU capsule 1 cap PO QDAY Qty: 0 RF: 0 MULTIVITAMIN (MULTI-VITAMINS) 1 tab PO Q DAY Qty: 0 RF: 0 cholecalciferol (vitamin D3) [Vitamin D3] 400 unit capsule 300 unit PO QDAY Qty: 0 RF: 0 losartan 50 MG tablet 50 mg PO BID Qty: 0 RF: 0 calcium polycarbophil [FiberCon] 625 MG tablet 1 tab PO QDAY Qty: 0 RF: 0 zolpidem 5 MG tablet 5 mg PO HSP PRN (Reason: sleep) Qty: 0 RF: 0 warfarin [Coumadin] 5 MG tablet See Rx Instructions .ROUTE .COMPLEX Qty: 0 RF: 0 melatonin 5 MG tablet 5 mg PO QPM Qty: 0 RF: 0 PreserVision AREDS 1 EACH capsule 1 cap PO QDAY Qty: 0 RF: 0 Metamucil 3.4 gram/5.4 gram powder 2 tsp PO BID Qty: 660 RF: 0 sennosides [senna] 8.6 mg tablet 8.6 mg PO BID Qty: 1 RF: 0 Referrals: Karley Preston MD [Primary Care Provider] -
[2021-02-12] MEDS: atenoloL 50 MG TABLET PO (13:20)
[2021-02-12] MEDS: FUROSEMIDE 40 MG/4 ML VIAL IV (13:20)
[2021-02-12 13:31] LABS: Troponin I < 0.012 ng/mL (0.01-0.034)
[2021-02-12 14:22] LABS: Bacteria Urine Few (2-10); Culture Indicated Urine Cult Not Indicated; RBC Urine 0-1/HPF (0-5/HPF); Squamous Epithelial Cell Urine 1-5 /HPF (0-5/HPF); WBC Urine 1-5/HPF (0-5/HPF)
== END 2021-02-12 14:52 | disposition home or self-care (01) ==
PROVIDERS: Emergency Provider Emergency Medicine; PCP Student in an Organized Health Care Education/Training Program
DX: I48.20 Chronic atrial fibrillation, unspecified (principal); I50.9 Heart failure, unspecified; Z79.01 Long term (current) use of anticoagulants; R06.02 Shortness of breath; Z20.822 Contact with and (suspected) exposure to COVID-19
CPT/HCPCS: 36415; 71045; 80053; 81003; 81015; 82550; 83605; 83690; 83880; 84145; 84484; 85025; 85610; 85730; 87040; 87635; 93005; 96374; 99284; C9803; J1940

== ENCOUNTER 2021-02-14 19:20 | Emergency (ER) | payer MEDICARE, SELFPAY ==
[2020-01-10 11:05] VITALS: BMI 24.5
[2021-02-14 19:45] VITALS: BP 161/103; PULSE 99; RESP 17; TEMP 36.7; O2SAT 94
--- NOTE | 2021-02-14 19:51 | DI.RAD.S_ITS ---
PROCEDURE: XR ELBOW LT MIN 3V INDICATIONS: fall, pain elbow w/ laceration. TECHNIQUE: 3 views of the elbow were acquired. COMPARISON: None. FINDINGS: Bones: No fractures or dislocations. No suspicious bony lesions. Soft tissues: No elbow joint effusion. No suspicious soft tissue calcifications. IMPRESSION: No trauma found. Mild degenerative changes noted. Dictated by: Waqas Trujillo M.D. on 02/14/2021 at 20:59 Approved by: Waqas Trujillo M.D. on 02/14/2021 at 20:59
[2021-02-14] MEDS: TET,DIPH,PERTUSS(ACELL),VAC/PF 0.5 ML SYRINGE IM (21:40)
[2021-02-14] MEDS: LIDO 1%/SOD BICARB 8.4% (10ML) 10 ML SYRINGE INJ (21:43)
[2021-02-14 21:45] VITALS: BP 161/98; PULSE 103; RESP 16; TEMP 36.7; O2SAT 94
--- NOTE | 2021-02-14 21:46 | DI.CT.S_ITS ---
PROCEDURE: CT HEAD/BRAIN WO CON INDICATIONS: hit head on coumadin TECHNIQUE: Noncontrast 4.5 mm thick angled axial sections acquired from the foramen magnum to the vertex, with coronal and sagittal reformats. For radiation dose reduction, the following was used: automated exposure control, adjustment of mA and/or kV according to patient size. COMPARISON: None. FINDINGS: Image quality: Excellent. CSF spaces: Basal cisterns are patent. No extra-axial fluid collections. The ventricles are symmetric in size and shape. Brain: No intracranial bleeds or masses. There is cerebral volume loss for age, with resultant ventricular and sulcal prominence. There are periventricular and deep white matter chronic small vessel ischemic changes. There is intracranial internal carotid artery atherosclerosis. Skull and face: Calvarium and visualized facial bones appear intact, without suspicious lesions. Right suboccipital scalp lipoma measuring 2.6 x 3.5 cm. Sinuses: Left maxillary sinus air-fluid level and mucosal thickening. Small mucous retention cyst in the right maxillary sinus. Mastoids are clear. IMPRESSION: 1. No evidence acute stroke, hemorrhage, or mass. No evidence of significant intracranial sequelae of acute trauma. 2. Incidental large right suboccipital scalp lipoma. 3. Acute on chronic left maxillary sinusitis. Dictated by: Fabien Jerry M.D. on 02/14/2021 at 22:54 Approved by: Fabien Jerry M.D. on 02/14/2021 at 22:57
--- NOTE | 2021-02-14 21:46 | DI.CT.S_ITS ---
PROCEDURE: CT CERVICAL SPINE WO CON INDICATIONS: hit head on coumadin TECHNIQUE: Noncontrast 3 mm thick sections acquired from the skull base to the T4 level. Sagittal and coronal reformats were then constructed. For radiation dose reduction, the following was used: automated exposure control, adjustment of mA and/or kV according to patient size. COMPARISON: None. FINDINGS: Image quality: Excellent. Bones: No fractures or dislocations. Visualized superior ribs are intact. Cervical spondylitic change centered at C6-C7 and C7-T1. There is calcified disc bulge at C6-C7 and uncovertebral joint hypertrophy resulting a degree of foraminal narrowing. At C7-T1, there is a small central peripherally calcified posterior disc protrusion. This does not appear resultant significant canal stenosis. Soft tissues: Prevertebral soft tissues are normal in thickness. No paravertebral hematomas. No apical pneumothoraces. 2.8 cm right thyroid nodule. 1.3 cm left thyroid nodule. IMPRESSION: 1. No evidence of acute cervical fracture or dislocation. 2. Cervical spondylosis. 3. Multinodular thyroid including a 2.8 cm right thyroid nodule. Recommend nonemergent thyroid ultrasound based on size of thyroid nodules. Comment: Final report is concordant with preliminary interpretation provided by [facility]. Dictated by: Fabien Jerry M.D. on 02/14/2021 at 22:49 Approved by: Fabien Jerry M.D. on 02/14/2021 at 22:53
[2021-02-14 22:14] LABS: Add Manual Diff / Slide Review NO; Basophils Absolute Auto 0 /uL (0-100); Basophils Percent Auto 0.3 % (0-2); Eosinophils Absolute Auto 0 /uL (0-450); Eosinophils Percent Auto 0.3 % (2-4); Hematocrit 39.6 % (36-46); Hemoglobin 13.2 g/dL (12.0-16.0); Lymphocytes Absolute Auto 1700 /uL (1100-4500); Lymphocytes Percent Auto 22.4 % (25-40); Mean Corpuscular HGB Conc 33.4 % (30-36); Mean Corpuscular Volume 92.8 fL (80-100); Monocytes Absolute Auto 700 /uL (0-900); Monocytes Percent Auto 9.3 % (3-14); Neutrophils Absolute Auto 5200 /uL (1500-7000); Neutrophils Percent Auto 67.7 % (50-75); Platelet Count 185 X10^3/uL (150-400); Red Blood Cell Count 4.26 X10^6/uL (4.0-5.2); Red Cell Distribution Width 13.4 % (11.6-14.8); White Blood Cell Count 7.6 X10^3/uL (4.5-11.0)
[2021-02-14 22:19] LABS: INR 1.7 (0.9-1.3)
[2021-02-14 23:10] VITALS: BP 166/86; PULSE 96; RESP 18; O2SAT 99
--- NOTE | 2021-02-14 23:23 | ED_ITS ---
HPI - Fall General Chief Complaint: Fall Stated Complaint: LT ELBOW PAIN POST FALL Time Seen by Provider: 02/14/21 20:48 Source: patient Mode of arrival: Ambulatory History of Present Illness HPI Narrative: 85-year-old female nonsmoker with history of atrial fibrillation on anticoagulation presents with family in the chief complaint of an accidental ground level fall in which she very slightly bumped her head and then landed on her left elbow. She denies any loss of consciousness, nausea, vomiting or focal neurologic findings. She has no lumps or contusion on her head and says she barely touched it. She has full although painful range of motion of her left elbow and denies any numbness, tingling or weakness. She denies prodromal symptoms such as chest pain or shortness of breath, dizziness or weakness. Related Data Home Medications Medication Instructions Recorded Confirmed MULTIVITAMIN (MULTI-VITAMINS) 1 tab PO Q DAY #0 02/17/11 01/10/20 aspirin 81 mg chewable tablet 81 mg PO EVERY OTHER DAY #0 02/17/11 01/10/20 calcium carbonate-vitamin D3 600 1 cap PO QDAY #0 02/17/11 01/10/20 mg (1,500 mg)-400 unit capsule (Calcium 600 with Vitamin D3) cholecalciferol (vitamin D3) 10 300 unit PO QDAY #0 02/17/11 01/10/20 mcg (400 unit) capsule (Vitamin D3) omega 2-xdf-nzi-fish oil 1,000 mg 1,000 mg PO QDAY #0 02/17/11 01/10/20 (120 mg-180 mg) capsule (Fish Oil) simvastatin 40 mg tablet (Zocor) 40 mg PO QPM #0 02/17/11 01/10/20 calcium polycarbophil 625 mg 1 tab PO QDAY #0 05/16/17 01/10/20 tablet (FiberCon) losartan 50 mg tablet 50 mg PO BID #0 05/16/17 01/10/20 melatonin 5 mg tablet 5 mg PO QPM #0 05/16/17 01/10/20 vitamins A,C,G-zwne-plbtzb 14,320 1 cap PO QDAY #0 05/16/17 01/10/20 unit-226 mg-200 unit capsule (PreserVision AREDS) warfarin 5 mg tablet (Coumadin) See Rx Instructions .ROUTE 05/16/17 01/10/20 .COMPLEX #0 zolpidem 5 mg tablet 5 mg PO HSP PRN #0 05/16/17 01/10/20 Previous Rx's Medication Instructions Recorded psyllium husk 3.4 gram/5.4 gram 2 tsp PO BID #660 gram 01/11/20 oral powder (Metamucil) sennosides 8.6 mg tablet (senna) 8.6 mg PO BID #1 tab 01/11/20 furosemide 40 mg tablet (Lasix) 40 mg PO DAILY #5 tab 02/12/21 doxycycline hyclate 100 mg tablet 100 mg PO BID #20 tab 02/14/21 Allergies Allergy/AdvReac Type Severity Reaction Status Date / Time amoxicillin [AMOXICILLIN] Allergy Severe Hives Verified 02/14/21 19:51 sulfamethoxazole Allergy Verified 02/14/21 19:51 [From ] trimethoprim [From ] Allergy Verified 02/14/21 19:51 Review of Systems Review of Systems Narrative: GENERAL: Denies chills, fatigue, malaise, fever, sweats. HEENT: Denies sinus pain, ear pain, sore throat, difficulty swallowing, dizziness. RESPIRATORY: Denies dyspnea, cough, wheezing, hemoptysis, sputum. CARDIOVASCULAR: Denies chest pain, palpitations, orthopnea, edema, GASTROINTESTINAL: Denies nausea, vomiting, abdominal pain, diarrhea, constipation, melena. : Denies dysuria, frequency, incontinence, hematuria, urinary retention. MUSCULOSKELETAL: See HPI SKIN: See HPI NEUROLOGIC: Denies weakness, headache, numbness, change in speech, confusion, seizures, incoordination. PSYCHIATRIC: No concerning psychosocial issues. 12 point review of systems is negative except for those stated above f Patient History Medical History CAD (coronary artery disease) Chronic anticoagulation Hyperlipidemia Hypertension Paroxysmal atrial fibrillation with rapid ventricular response Social History household members: spouse Smoking Status: Never smoker Smoking Status: Never smoker alcohol intake frequency: a few times a month Substance Use Type: does not use Exam Narrative Exam Narrative: GENERAL: [85] year old patient appears stated age. Well- developed patient, in mild distress. GCS 15 HEAD: Atraumatic. Normocephalic. No contusions, abrasions or lacerations. No evidence of depressed skull fracture EYES: Pupils equal round and reactive. Extraocular motions intact. No scleral icterus. No injection or drainage. ENT: Nose without bleeding, purulent drainage. Throat without erythema, tonsillar hypertrophy or exudate. Airway patent. NECK: Trachea midline. Non tender CARDIOVASCULAR: Regular rate and rhythm without murmurs, gallops, or rubs. RESPIRATORY: Clear to auscultation. Breath sounds equal bilaterally. No wheezes, rales, or rhonchi. GASTROINTESTINAL: Abdomen soft, non-tender, nondistended. EXTREMITIES: Full but painful range of motion of the left elbow with 2 cm deep laceration overlying the olecranon, minimal active bleeding and no evidence of foreign body, no numbness, tingling or weakness. BACK: Nontender without deformity or crepitance. No flank tenderness. NEURO: AOx3. SKIN: No rash or erythema of visible areas Initial Vital Signs Initial Vital Signs: Vital Signs Temperature 98.1 F 02/14/21 19:45 Pulse Rate 99 H 02/14/21 19:45 Respiratory Rate 17 02/14/21 19:45 Blood Pressure 161/103 H 02/14/21 19:45 Pulse Oximetry 94 02/14/21 19:45 Procedures Laceration Repair Laceration 1: Site: upper extremity Side (If applicable): left Size (cm): 2 Description: linear Depth: simple, single layer Local Anesthetic: lidocaine 1% and with bicarb Amount of anesthesia used (mL): 4 Pre-repair: wound explored and deep structures intact Skin layer closed with: nylon Size (cm): 4-0 Number of sutures: 5 Technique: simple, interrupted and horizontal mattress Course Orders Ordered: ED Orders 02/14/21 19:51 XR elbow LT min 3V Stat 02/14/21 21:46 CT cervical spine wo con Stat CT head/brain wo con Stat 02/14/21 22:05 Complete Blood Count AUTO DIFF Stat Prothrombin Time INR Stat Discontinued Medications Diphtheria/Tetanus/Acell Pertussis (Tet,Diph,Pertuss(Acell),Vac/Pf 0.5 Ml Syringe) 0.5 ml IM .ONCE ONE Stop: 02/14/21 20:49 Last Admin: 02/14/21 21:40 Dose: 0.5 ml Documented by: ATAYLOR Lidocaine/Sodium Bicarbonate (Lido 1%/Sod Bicarb 8.4% (10ml) 10 Ml Syringe) 10 ml INJ NOW ONE Stop: 02/14/21 20:49 Last Admin: 02/14/21 21:43 Dose: 10 ml Documented by: AFTAB Vital Signs Vital signs: Vital Signs - 8 hr 02/14/21 21:45 02/14/21 23:10 Temperature 98.1 F Pulse Rate 103 H 96 H Respiratory Rate 16 18 Blood Pressure 161/98 H 166/86 H Pulse Oximetry 94 99 MDM - Fall Lab Data Result diagrams: 02/14/21 22:05 Labs: Lab Results 02/14/21 02/14/21 Range/Units 22:05 22:05 WBC 7.6 (4.5-11.0) X10^3/uL RBC 4.26 (4.0-5.2) X10^6/uL Hgb 13.2 (12.0-16.0) g/dL Hct 39.6 (36-46) % MCV 92.8 (80-100) fL MCH 31.0 (26-34) PG MCHC 33.4 (30-36) % RDW 13.4 (11.6-14.8) % Plt Count 185 (150-400) X10^3/uL Neut % (Auto) 67.7 (50-75) % Lymph % (Auto) 22.4 L (25-40) % Addison % (Auto) 9.3 (3-14) % Eos % (Auto) 0.3 L (2-4) % Baso % (Auto) 0.3 (0-2) % Neut # (Auto) 5200 (9359-3116) /uL Lymph # (Auto) 1700 (3649-2325) /uL Addison # (Auto) 700 (0-900) /uL Eos # (Auto) 0 (0-450) /uL Baso # (Auto) 0 (0-100) /uL PT 19.0 H D (10.1-12.7) SECONDS INR 1.7 H (0.9-1.3) Imaging Data CT scan - head: Radiologist's Impression: Maribel Lemons 85 F [address] [id number] Scan ReportSigned Patient: Maribel Lemons AMR#: [id number]: 8Ac ct:[id number]/Sex: 85 / FDate of Service: 02/14/21Loc: EDAccession Number: [id number] Procedure: CT head/brain wo con Ordering Provider: Gaurav Warren D.O. PROCEDURE: CT HEAD/BRAIN WO CON INDICATIONS: hit head on coumadin TECHNIQUE: Noncontrast 4.5 mm thick angled axial sections acquired from the foramen magnum to the vertex, with coronal and sagittal reformats. For radiation dose reduction, the following was used: automated exposure control, adjustment of mA and/or kV according to patient size. COMPARISON: None. FINDINGS: Image quality: Excellent. CSF spaces: Basal cisterns are patent. No extra-axial fluid collections. The ventricles are symmetric in size and shape. Brain: No intracranial bleeds or masses. There is cerebral volume loss for age, with resultant ventricular and sulcal prominence. There are periventricular and deep white matter chronic small vessel ischemic changes. There is intracranial internal carotid artery atherosclerosis. Skull and face: Calvarium and visualized facial bones appear intact, without suspicious lesions. Right suboccipital scalp lipoma measuring 2.6 x 3.5 cm. Sinuses: Left maxillary sinus air-fluid level and mucosal thickening. Small mucous retention cyst in the right maxillary sinus. Mastoids are clear. IMPRESSION: 1. No evidence acute stroke, hemorrhage, or mass. No evidence of significant intracranial sequelae of acute trauma. 2. Incidental large right suboccipital scalp lipoma. 3. Acute on chronic left maxillary sinusitis. Dictated by: Fabine Jerry M.D. on 02/14/2021 at 22:54 Approved by: Fabien Jerry M.D. on 02/14/2021 at 22:57 CT - cervical spine: Radiologist's Impression: Chart Viewer Diagnostics DATE TYPE STATUS REF RANGE/AUTHOR Hx 02/14/21 21:46 Fbaien Jerry 02/14/21 21:46 Fabien Jerry 02/14/21 19:51 Waqas Trujillo 02/12/21 09:48 Waqas Trujillo 01/30/21 15:20 Anthony Olson 01/30/21 15:16 06/26/20 00:00 01/10/20 15:25 Waqas Trujillo 01/10/20 09:58 Anthony Olson 01/10/20 08:55 Waqas Trujillo 01/10/20 06:16 Waqas Trujillo 01/10/20 00:00 01/13/18 00:00 Mark Yung 05/16/17 11:45 06/14/16 15:38 85, F0 1935 [facility]P [facility] 160.02cm 63.503kg BMI: 24.8kg/m? Fall Search Chart No Data to Display NonFormulary Not Included in Conflicts Hives ONSET 02/14/21 23:10 Maribel Lemons 85 F [address] [id number] Scan ReportSigned Patient: Maribel Lemons AMR#: [id number]: 1935 cct:[id number]/Sex: 85 / FDate of Service: 02/14/21Loc: EDAccession Number: [id number] Procedure: CT cervical spine wo con Ordering Provider: Gaurav Warren D.O. PROCEDURE: CT CERVICAL SPINE WO CON INDICATIONS: hit head on coumadin TECHNIQUE: Noncontrast 3 mm thick sections acquired from the skull base to the T4 level. Sagittal and coronal reformats were then constructed. For radiation dose reduction, the following was used: automated exposure control, adjustment of mA and/or kV according to patient size. COMPARISON: None. FINDINGS: Image quality: Excellent. Bones: No fractures or dislocations. Visualized superior ribs are intact. Cervical spondylitic change centered at C6-C7 and C7-T1. There is calcified disc bulge at C6-C7 and uncovertebral joint hypertrophy resulting a degree of foraminal narrowing. At C7-T1, there is a small central peripherally calcified posterior disc protrusion. This does not appear resultant significant canal stenosis. Soft tissues: Prevertebral soft tissues are normal in thickness. No paravertebral hematomas. No apical pneumothoraces. 2.8 cm right thyroid nodule. 1.3 cm left thyroid nodule. IMPRESSION: 1. No evidence of acute cervical fracture or dislocation. 2. Cervical spondylosis. 3. Multinodular thyroid including a 2.8 cm right thyroid nodule. Recommend nonemergent thyroid ultrasound based on size of thyroid nodules. Comment: Final report is concordant with preliminary interpretation provided by [facility]. Dictated by: Fabien Jerry M.D. on 02/14/2021 at 22:49 Approved by: Fabien Jerry M.D. on 02/14/2021 at 22:53 Extremity x-ray #1: Radiologist's Impression: [address] [id number] ReportSigned Patient: Maribel Lemons AMR#: [id number]: 0 1935cct:[id number]/Sex: 85 / FDate of Service: 02/14/21Loc: EDAccession Number: [id number] Procedure: XR elbow LT min 3V Ordering Provider: Gaurav Warren D.O. PROCEDURE: XR ELBOW LT MIN 3V INDICATIONS: fall, pain elbow w/ laceration. TECHNIQUE: 3 views of the elbow were acquired. COMPARISON: None. FINDINGS: Bones: No fractures or dislocations. No suspicious bony lesions. Soft tissues: No elbow joint effusion. No suspicious soft tissue calc ifications. IMPRESSION: No trauma found. Mild degenerative changes noted. Dictated by: Waqas Trujillo M.D. on 02/14/2021 at 20:59 Approved by: Waqas Trujillo M.D. on 02/14/2021 at 20:59 Discharge Plan Departure Patient Disposition: Home Clinical Impression: Laceration of elbow, left Qualifiers: Encounter type: initial encounter Qualified Code(s): S51.012A - Laceration without foreign body of left elbow, initial encounter Instructions: DI for Laceration Repair Activity Restrictions/Additional Instructions: *You have been diagnosed with [fall with left elbow laceration] *What to do: *Please continue to take your regular medications as directed. [x ] New medication prescriptions sent to your pharmacy: [[facility]] [ ] New medication written as a paper prescription [ ] No new medications given * Please keep the wound clean and dry to the best of your ability. Please monitor for signs of infection such as redness to the skin or increasing pain. Have the sutures removed by your doctor in about 7 days. If you are unable to get into your doctor, we would be happy to remove the sutures in that same timeframe. *If you do not have a primary care provider please contact the [facility] Resource line at [phone]. They will ask some questions about your medical history and help get you set up with a doctor in the community. *Return to Emergency Department if you should have any new, worsening or concerning symptoms, such as [fever greater than 101 F, shaking chills, worsening pain, persistent vomiting or other bothersome symptoms] Prescriptions: New doxycycline hyclate 100 mg tablet 100 mg PO BID Qty: 20 RF: 0 No Action simvastatin [Zocor] 40 MG tablet 40 mg PO QPM Qty: 0 RF: 0 aspirin 81 MG tablet,chewable 81 mg PO EVERY OTHER DAY Qty: 0 RF: 0 omega 6-thr-qrn-fish oil [Fish Oil] 1,000 MG capsule 1,000 mg PO QDAY Qty: 0 RF: 0 calcium carbonate-vitamin D3 [Calcium 600 with Vitamin D3] 600 MG/200 IU capsule 1 cap PO QDAY Qty: 0 RF: 0 MULTIVITAMIN (MULTI-VITAMINS) 1 tab PO Q DAY Qty: 0 RF: 0 cholecalciferol (vitamin D3) [Vitamin D3] 400 unit capsule 300 unit PO QDAY Qty: 0 RF: 0 losartan 50 MG tablet 50 mg PO BID Qty: 0 RF: 0 calcium polycarbophil [FiberCon] 625 MG tablet 1 tab PO QDAY Qty: 0 RF: 0 zolpidem 5 MG tablet 5 mg PO HSP PRN (Reason: sleep) Qty: 0 RF: 0 warfarin [Coumadin] 5 MG tablet See Rx Instructions .ROUTE .COMPLEX Qty: 0 RF: 0 melatonin 5 MG tablet 5 mg PO QPM Qty: 0 RF: 0 PreserVision AREDS 1 EACH capsule 1 cap PO QDAY Qty: 0 RF: 0 Metamucil 3.4 gram/5.4 gram powder 2 tsp PO BID Qty: 660 RF: 0 sennosides [senna] 8.6 mg tablet 8.6 mg PO BID Qty: 1 RF: 0 furosemide [Lasix] 40 mg tablet 40 mg PO DAILY Qty: 5 RF: 0 Referrals: Karley Preston MD [Primary Care Provider] -
--- NOTE | 2021-02-14 23:40 | PC.NURSE ---
Sutures placed by Dr. Warren
== END 2021-02-14 23:49 | disposition home or self-care (01) ==
PROVIDERS: Emergency Provider Emergency Medicine; PCP Student in an Organized Health Care Education/Training Program
DX: S51.012A Laceration without foreign body of left elbow, initial encounter (principal); S09.90XA Unspecified injury of head, initial encounter; W19.XXXA Unspecified fall, initial encounter; Z79.01 Long term (current) use of anticoagulants; Z23 Encounter for immunization
CPT/HCPCS: 12001; 36415; 70450; 72125; 73080; 85025; 85610; 90471; 99284; 90715

== ENCOUNTER → 2021-02-17 08:02 | Outpatient (CLI) | payer MEDICARE, SELFPAY ==
[2020-01-10 11:05] VITALS: BMI 24.5
== END ==
PROVIDERS: PCP Student in an Organized Health Care Education/Training Program; Referring Provider Student in an Organized Health Care Education/Training Program; Visit Provider Student in an Organized Health Care Education/Training Program
DX: E23.0 Hypopituitarism (principal); Z53.8 Procedure and treatment not carried out for other reasons

== ENCOUNTER → 2021-03-31 12:08 | Outpatient (ROUT) | payer MEDICARE, SELFPAY ==
[2020-01-10 11:05] VITALS: BMI 24.5
[2021-03-31 12:20] LABS: INR 2.1 (0.9-1.3); Prothrombin Time 23.8 SECONDS (10.1-12.7)
== END ==
PROVIDERS: PCP Student in an Organized Health Care Education/Training Program; Visit Provider Student in an Organized Health Care Education/Training Program
DX: Z79.01 Long term (current) use of anticoagulants (principal)
CPT/HCPCS: 85610

== ENCOUNTER → 2021-04-21 08:32 | Outpatient (ROUT) | payer MEDICARE, SELFPAY ==
[2020-01-10 11:05] VITALS: BMI 24.5
[2021-04-21 08:56] LABS: INR 1.9 (0.9-1.3); Prothrombin Time 21.6 SECONDS (10.1-12.7)
== END ==
PROVIDERS: PCP Student in an Organized Health Care Education/Training Program; Visit Provider Student in an Organized Health Care Education/Training Program
DX: Z79.01 Long term (current) use of anticoagulants (principal)
CPT/HCPCS: 85610

== ENCOUNTER → 2021-06-09 11:39 | Outpatient (ROUT) | payer MEDICARE, SELFPAY ==
[2020-01-10 11:05] VITALS: BMI 24.5
[2021-06-09 11:53] LABS: INR 2.7 (0.9-1.3); Prothrombin Time 31.3 SECONDS (10.1-12.7)
== END ==
PROVIDERS: PCP Student in an Organized Health Care Education/Training Program; Visit Provider Student in an Organized Health Care Education/Training Program
DX: Z79.01 Long term (current) use of anticoagulants (principal)
CPT/HCPCS: 85610

== ENCOUNTER → 2021-07-20 14:00 | Outpatient (ROUT) | payer MEDICARE, SELFPAY ==
[2020-01-10 11:05] VITALS: BMI 24.5
[2021-07-20 14:18] LABS: INR 2.1 (0.9-1.3); Prothrombin Time 24.1 SECONDS (10.1-12.7)
== END ==
PROVIDERS: PCP Student in an Organized Health Care Education/Training Program; Visit Provider Student in an Organized Health Care Education/Training Program
DX: I48.91 Unspecified atrial fibrillation (principal); Z79.01 Long term (current) use of anticoagulants
CPT/HCPCS: 85610

== ENCOUNTER → 2021-08-18 12:39 | Outpatient (ROUT) | payer MEDICARE, SELFPAY ==
[2020-01-10 11:05] VITALS: BMI 24.5
[2021-08-18 12:54] LABS: INR 2.2 (0.9-1.3); Prothrombin Time 25.6 SECONDS (10.1-12.7)
== END ==
PROVIDERS: PCP Student in an Organized Health Care Education/Training Program; Visit Provider Student in an Organized Health Care Education/Training Program
DX: I48.91 Unspecified atrial fibrillation (principal)
CPT/HCPCS: 85610

== ENCOUNTER → 2021-10-06 11:39 | Outpatient (ROUT) | payer MEDICARE, SELFPAY ==
[2020-01-10 11:05] VITALS: BMI 24.5
[2021-10-06 11:57] LABS: INR 2.3 (0.9-1.3); Prothrombin Time 26.4 SECONDS (10.1-12.7)
== END ==
PROVIDERS: PCP Student in an Organized Health Care Education/Training Program; Visit Provider Student in an Organized Health Care Education/Training Program
DX: Z79.01 Long term (current) use of anticoagulants (principal)
CPT/HCPCS: 85610

== ENCOUNTER → 2021-11-05 12:20 | Outpatient (ROUT) | payer MEDICARE, SELFPAY ==
[2020-01-10 11:05] VITALS: BMI 24.5
[2021-11-05 12:45] LABS: Prothrombin Time 58.6 SECONDS (10.1-12.7)
[2021-11-05 13:02] LABS: INR 4.8 (0.9-1.3)
== END ==
PROVIDERS: PCP Student in an Organized Health Care Education/Training Program; Visit Provider Student in an Organized Health Care Education/Training Program
DX: Z79.01 Long term (current) use of anticoagulants (principal)
CPT/HCPCS: 85610

== ENCOUNTER → 2021-11-08 10:41 | Outpatient (CLI) | payer MEDICARE, SELFPAY ==
[2020-01-10 11:05] VITALS: BMI 24.5
[2021-11-08 11:03] LABS: INR 1.4 (0.9-1.3); Prothrombin Time 15.4 SECONDS (10.1-12.7)
== END ==
PROVIDERS: PCP Student in an Organized Health Care Education/Training Program; Referring Provider Student in an Organized Health Care Education/Training Program; Visit Provider Student in an Organized Health Care Education/Training Program
DX: I48.91 Unspecified atrial fibrillation (principal)
CPT/HCPCS: 36415; 85610

== ENCOUNTER → 2021-11-18 11:41 | Outpatient (ROUT) | payer MEDICARE, SELFPAY ==
[2020-01-10 11:05] VITALS: BMI 24.5
[2021-11-18 12:01] LABS: INR 1.3 (0.9-1.3); Prothrombin Time 14.7 SECONDS (10.1-12.7)
== END ==
PROVIDERS: PCP Student in an Organized Health Care Education/Training Program; Visit Provider Student in an Organized Health Care Education/Training Program
DX: Z79.01 Long term (current) use of anticoagulants (principal)
CPT/HCPCS: 85610

== ENCOUNTER → 2021-11-25 11:09 | Outpatient (ROUT) | payer MEDICARE, SELFPAY ==
[2020-01-10 11:05] VITALS: BMI 24.5
[2021-11-25 11:21] LABS: INR 1.6 (0.9-1.3); Prothrombin Time 17.4 SECONDS (10.1-12.7)
== END ==
PROVIDERS: PCP Student in an Organized Health Care Education/Training Program; Visit Provider Student in an Organized Health Care Education/Training Program
DX: Z79.01 Long term (current) use of anticoagulants (principal)
CPT/HCPCS: 85610

== ENCOUNTER → 2021-12-04 15:39 | Outpatient (ROUT) | payer MEDICARE, SELFPAY ==
[2020-01-10 11:05] VITALS: BMI 24.5
[2021-12-04 16:00] LABS: INR 2.7 (0.9-1.3); Prothrombin Time 31.3 SECONDS (10.1-12.7)
== END ==
PROVIDERS: PCP Student in an Organized Health Care Education/Training Program; Visit Provider Student in an Organized Health Care Education/Training Program
DX: Z79.01 Long term (current) use of anticoagulants (principal)
CPT/HCPCS: 85610

== ENCOUNTER → 2021-12-18 10:52 | Outpatient (ROUT) | payer MEDICARE, SELFPAY ==
[2020-01-10 11:05] VITALS: BMI 24.5
[2021-12-18 11:09] LABS: INR 2.5 (0.9-1.3); Prothrombin Time 28.6 SECONDS (10.1-12.7)
== END ==
PROVIDERS: PCP Student in an Organized Health Care Education/Training Program; Visit Provider Student in an Organized Health Care Education/Training Program
DX: Z79.01 Long term (current) use of anticoagulants (principal)
CPT/HCPCS: 85610

== ENCOUNTER → 2022-01-05 09:46 | Outpatient (ROUT) | payer MEDICARE, SELFPAY ==
[2020-01-10 11:05] VITALS: BMI 24.5
[2022-01-05 09:57] LABS: Prothrombin Time 34.6 SECONDS (10.1-12.7)
== END ==
PROVIDERS: PCP Student in an Organized Health Care Education/Training Program; Visit Provider Student in an Organized Health Care Education/Training Program
DX: Z79.01 Long term (current) use of anticoagulants (principal)
CPT/HCPCS: 85610

== ENCOUNTER → 2022-01-12 10:54 | Outpatient (ROUT) | payer MEDICARE, SELFPAY ==
[2020-01-10 11:05] VITALS: BMI 24.5
[2022-01-12 11:11] LABS: INR 3.1 (0.9-1.3); Prothrombin Time 35.8 SECONDS (10.1-12.7)
== END ==
PROVIDERS: PCP Student in an Organized Health Care Education/Training Program; Visit Provider Student in an Organized Health Care Education/Training Program
DX: I48.91 Unspecified atrial fibrillation (principal)
CPT/HCPCS: 85610

== ENCOUNTER → 2022-01-20 10:12 | Outpatient (ROUT) | payer MEDICARE, SELFPAY ==
[2020-01-10 11:05] VITALS: BMI 24.5
[2022-01-20 10:28] LABS: INR 1.6 (0.9-1.3); Prothrombin Time 18.3 SECONDS (10.1-12.7)
== END ==
PROVIDERS: PCP Student in an Organized Health Care Education/Training Program; Visit Provider Student in an Organized Health Care Education/Training Program
DX: Z79.01 Long term (current) use of anticoagulants (principal)
CPT/HCPCS: 85610

== ENCOUNTER → 2022-01-27 15:58 | Outpatient (ROUT) | payer MEDICARE, SELFPAY ==
[2020-01-10 11:05] VITALS: BMI 24.5
[2022-01-27 16:05] LABS: INR 2.2 (0.9-1.3); Prothrombin Time 25.2 SECONDS (10.1-12.7)
== END ==
PROVIDERS: PCP Student in an Organized Health Care Education/Training Program; Visit Provider Student in an Organized Health Care Education/Training Program
DX: Z79.01 Long term (current) use of anticoagulants (principal)
CPT/HCPCS: 85610

== ENCOUNTER → 2022-02-03 10:41 | Outpatient (ROUT) | payer MEDICARE, SELFPAY ==
[2020-01-10 11:05] VITALS: BMI 24.5
[2022-02-03 10:57] LABS: INR 2.9 (0.9-1.3); Prothrombin Time 33.5 SECONDS (10.1-12.7)
== END ==
PROVIDERS: PCP Student in an Organized Health Care Education/Training Program; Visit Provider Family Medicine
DX: Z79.01 Long term (current) use of anticoagulants (principal)
CPT/HCPCS: 85610

== ENCOUNTER → 2022-02-10 10:06 | Outpatient (ROUT) | payer MEDICARE, SELFPAY ==
[2020-01-10 11:05] VITALS: BMI 24.5
[2022-02-10 10:24] LABS: INR 4.2 (0.9-1.3); Prothrombin Time 48.8 SECONDS (10.1-12.7)
== END ==
PROVIDERS: PCP Student in an Organized Health Care Education/Training Program; Visit Provider Student in an Organized Health Care Education/Training Program
DX: Z79.01 Long term (current) use of anticoagulants (principal)
CPT/HCPCS: 85610

== ENCOUNTER → 2022-02-22 10:06 | Outpatient (CLI) | payer MEDICARE, SELFPAY ==
[2020-01-10 11:05] VITALS: BMI 24.5
--- NOTE | 2022-02-22 10:09 | DI.ECHO.S_ITS ---
[facility] +---------+ : : [address] [place] : : : : [id number] : : : : Phone: [phone]+ Echocardiogram Report + + :Name: EDWARD MONREAL Study Date: 02/22/2022 Height: 62 in : :[facility] ReadingLocation: Weight: 138 lb : : Gender: Female BSA: 1.6 m2 : :: 1935 Age: 86 yrs BP: 183/90 mmHg: :Reason For Study: Atrial fibrillation : :Ordering Physician: KAREL, : :NIKOLAS Performed By: Partha Tellez : :Referring: NIKOLAS BIRD : + + Interpretation Summary The ejection fraction is estimated to be 50 %. LVEF has significantly improved. The left atrium is severely dilated. There is mild mitral regurgitation. There is mild aortic regurgitation. There is mild tricuspid regurgitation. There is moderate mitral annular calcification. Procedure: A two-dimensional transthoracic echocardiogram with color flow and Doppler was performed. The study quality was technically adequate. Comparison is made with the echocardiogram of 02/20/2021. The patient was in normal sinus rhythm during the exam. Left Ventricle: The left ventricle is moderately dilated. There is normal left ventricular wall thickness. LVEF 50%. Left ventricular wall motion is normal. Diastolic parameters suggest a pseudonormalization pattern, consistent with probable elevated filling pressures. Right Ventricle: The right ventricle is normal in size and function. Atria: The left atrium is severely dilated. Right atrial size is normal. The interatrial septum grossly appears intact with no obvious evidence for an atrial septal defect. Mitral Valve: There is moderate mitral annular calcification. There is mild mitral regurgitation. Aortic Valve: The aortic valve is normal in structure and function. There is mild aortic regurgitation. Tricuspid Valve: The tricuspid valve is normal in structure and function. There is mild tricuspid regurgitation. Pulmonary artery pressures cannot be estimated because of the lack of a measurable TR jet velocity. Pulmonic Valve: The pulmonic valve is normal in structure and function. There is trace pulmonic regurgitation. Great Vessels: The aortic root is normal size. The dimensions of the ascending aorta are normal. The IVC is of normal diameter and collapses greater than 50% with a sniff. This suggests a low right atrial pressure of 3 mm Hg. Pericardium/ Pleura There is no pericardial effusion. There is no pleural effusion. MMode/2D Measurements & Calculations LVIDd: 5.8 cm LVOT diam: 1.9 cm LVIDs: 4.3 cm Ao root diam: 3.0 cm FS: 25.6 % asc Aorta Diam: 3.0 cm IVSd: 0.97 cm LVPWd: 1.0 cm LV jimenez. diameter/BSA (cm/m^2): 3.6 LV sys. diameter/BSA (cm/m^2): 2.7 LA dimension: 4.6 cm RA long axis: 5.0 cm LA A2 area: 18.9 cm2 RA area: 18.5 cm2 LA A4 area: 26.7 cm2 RA vol: 58.5 ml LA length (vol): 5.2 cm RA : 35.8 ml/m2 LA vol: 82.1 ml LA vol index: 50.3 ml/m2 LVLs ap4: 6.4 cm LVLd ap2: 6.8 cm LVLs ap2: 6.3 cm TAPSE_phl: 2.1 cm Doppler Measurements & Calculations LVOT Max Steve: 77.7 cm/sec MV E max steve: 86.5 cm/sec LV V1 max P.4 mmHg MV A max steve: 67.7 cm/sec LV V1 VTI: 19.6 cm MV E/A: 1.3 Med Peak E' Steve: 4.5 cm/sec E/E' med: 19.4 Lat Peak E' Steve: 5.3 cm/sec E/E' lat: 16.3 E/e' average: 17.8 MV dec time: 0.14 sec SV(LVOT): 55.6 ml MV P1/2t-pr_phl: 41.0 msec Reading Physician:09:05 AM
== END ==
PROVIDERS: PCP Family Medicine; Referring Provider Internal Medicine Cardiovascular Disease; Visit Provider Internal Medicine Cardiovascular Disease
DX: I48.0 Paroxysmal atrial fibrillation (principal); R01.0 Benign and innocent cardiac murmurs; I08.3 Combined rheumatic disorders of mitral, aortic and tricuspid valves; I50.22 Chronic systolic (congestive) heart failure; I25.119 Atherosclerotic heart disease of native coronary artery with unspecified angina pectoris
CPT/HCPCS: 93306

== ENCOUNTER → 2022-02-24 11:40 | Outpatient (ROUT) | payer MEDICARE, SELFPAY ==
[2020-01-10 11:05] VITALS: BMI 24.5
[2022-02-24 12:02] LABS: Prothrombin Time 46.8 SECONDS (10.1-12.7)
== END ==
PROVIDERS: PCP Family Medicine; Visit Provider Family Medicine
DX: Z79.01 Long term (current) use of anticoagulants (principal)
CPT/HCPCS: 85610

== ENCOUNTER → 2022-03-03 10:30 | Outpatient (ROUT) | payer MEDICARE, SELFPAY ==
[2020-01-10 11:05] VITALS: BMI 24.5
[2022-03-03 10:39] LABS: INR 1.5 (0.9-1.3); Prothrombin Time 17.1 SECONDS (10.1-12.7)
== END ==
PROVIDERS: PCP Family Medicine; Visit Provider Student in an Organized Health Care Education/Training Program
DX: Z79.01 Long term (current) use of anticoagulants (principal)
CPT/HCPCS: 85610

== ENCOUNTER → 2022-03-11 10:31 | Outpatient (ROUT) | payer MEDICARE, SELFPAY ==
[2020-01-10 11:05] VITALS: BMI 24.5
[2022-03-11 10:38] LABS: INR 1.7 (0.9-1.3); Prothrombin Time 19.2 SECONDS (10.1-12.7)
== END ==
PROVIDERS: PCP Family Medicine; Visit Provider Internal Medicine
DX: Z79.01 Long term (current) use of anticoagulants (principal)
CPT/HCPCS: 85610

== ENCOUNTER → 2022-03-17 10:08 | Outpatient (ROUT) | payer MEDICARE, SELFPAY ==
[2020-01-10 11:05] VITALS: BMI 24.5
[2022-03-17 10:19] LABS: INR 3.5 (0.9-1.3); Prothrombin Time 40.4 SECONDS (10.1-12.7)
== END ==
PROVIDERS: PCP Family Medicine; Visit Provider Internal Medicine
DX: Z79.01 Long term (current) use of anticoagulants (principal)
CPT/HCPCS: 85610

== ENCOUNTER → 2022-03-24 11:12 | Outpatient (ROUT) | payer MEDICARE, SELFPAY ==
[2020-01-10 11:05] VITALS: BMI 24.5
[2022-03-24 11:51] LABS: INR 2.3 (0.9-1.3); Prothrombin Time 26.9 SECONDS (10.1-12.7)
== END ==
PROVIDERS: PCP Family Medicine; Visit Provider Internal Medicine
DX: Z79.01 Long term (current) use of anticoagulants (principal)
CPT/HCPCS: 85610

== ENCOUNTER → 2022-03-31 11:36 | Outpatient (ROUT) | payer MEDICARE, SELFPAY ==
[2020-01-10 11:05] VITALS: BMI 24.5
[2022-03-31 11:55] LABS: INR 3.1 (0.9-1.3); Prothrombin Time 35.9 SECONDS (10.1-12.7)
== END ==
PROVIDERS: PCP Family Medicine; Visit Provider Internal Medicine
DX: Z79.01 Long term (current) use of anticoagulants (principal)
CPT/HCPCS: 85610

== ENCOUNTER → 2022-04-05 17:47 | Outpatient (ROUT) | payer MEDICARE, SELFPAY ==
[2020-01-10 11:05] VITALS: BMI 24.5
[2022-04-05 18:29] LABS: COVID19 -Nasal RAPID Negative (Negative)
== END ==
PROVIDERS: PCP Family Medicine; Visit Provider Family Medicine
DX: R07.0 Pain in throat (principal); Z20.822 Contact with and (suspected) exposure to COVID-19
CPT/HCPCS: 87635

== ENCOUNTER → 2022-04-27 11:51 | Outpatient (ROUT) | payer MEDICARE, SELFPAY ==
[2020-01-10 11:05] VITALS: BMI 24.5
[2022-04-27 14:30] LABS: INR 4.8 (0.9-1.3); Prothrombin Time 55.7 SECONDS (10.1-12.7)
== END ==
PROVIDERS: PCP Family Medicine; Visit Provider Internal Medicine
DX: Z79.01 Long term (current) use of anticoagulants (principal)
CPT/HCPCS: 85610

== ENCOUNTER → 2022-04-28 09:06 | Outpatient (ROUT) | payer MEDICARE, SELFPAY ==
[2020-01-10 11:05] VITALS: BMI 24.5
[2022-04-28 09:32] LABS: INR 3.1 (0.9-1.3); Prothrombin Time 35.7 SECONDS (10.1-12.7)
== END ==
PROVIDERS: PCP Family Medicine; Visit Provider Internal Medicine
DX: Z79.01 Long term (current) use of anticoagulants (principal)
CPT/HCPCS: 85610

== ENCOUNTER → 2022-05-26 11:23 | Outpatient (ROUT) | payer MEDICARE, SELFPAY ==
[2020-01-10 11:05] VITALS: BMI 24.5
[2022-05-26 11:38] LABS: INR 2.6 (0.9-1.3); Prothrombin Time 29.7 SECONDS (10.1-12.7)
== END ==
PROVIDERS: PCP Family Medicine; Visit Provider Internal Medicine
DX: Z79.01 Long term (current) use of anticoagulants (principal)
CPT/HCPCS: 85610

== ENCOUNTER → 2022-06-10 10:51 | Outpatient (ROUT) | payer MEDICARE, SELFPAY ==
[2020-01-10 11:05] VITALS: BMI 24.5
[2022-06-10 11:10] LABS: INR 1.5 (0.9-1.3); Prothrombin Time 17.7 SECONDS (10.1-12.7)
== END ==
PROVIDERS: PCP Family Medicine; Visit Provider Internal Medicine
DX: Z79.01 Long term (current) use of anticoagulants (principal)
CPT/HCPCS: 85610

== ENCOUNTER → 2022-06-16 10:51 | Outpatient (ROUT) | payer MEDICARE, SELFPAY ==
[2020-01-10 11:05] VITALS: BMI 24.5
[2022-06-16 11:05] LABS: INR 2.6 (0.9-1.3); Prothrombin Time 29.7 SECONDS (10.1-12.7)
== END ==
PROVIDERS: PCP Family Medicine; Visit Provider Internal Medicine
DX: Z79.01 Long term (current) use of anticoagulants (principal)
CPT/HCPCS: 85610

== ENCOUNTER → 2022-06-28 09:57 | Outpatient (CLI) | payer MEDICARE, SELFPAY ==
[2020-01-10 11:05] VITALS: BMI 24.5
== END ==
PROVIDERS: PCP Family Medicine; Referring Provider Family Medicine; Visit Provider Family Medicine
DX: M85.852 Other specified disorders of bone density and structure, left thigh (principal); Z78.0 Asymptomatic menopausal state; Z90.710 Acquired absence of both cervix and uterus
CPT/HCPCS: 77080

== ENCOUNTER → 2022-06-30 11:38 | Outpatient (ROUT) | payer MEDICARE, SELFPAY ==
[2020-01-10 11:05] VITALS: BMI 24.5
[2022-06-30 11:51] LABS: INR 2.5 (0.9-1.3); Prothrombin Time 29.3 SECONDS (10.1-12.7)
== END ==
PROVIDERS: PCP Family Medicine; Visit Provider Internal Medicine
DX: Z79.01 Long term (current) use of anticoagulants (principal)
CPT/HCPCS: 85610

== ENCOUNTER → 2022-07-28 11:26 | Outpatient (ROUT) | payer MEDICARE, SELFPAY ==
[2020-01-10 11:05] VITALS: BMI 24.5
[2022-07-28 11:41] LABS: INR 3.3 (0.9-1.3); Prothrombin Time 37.8 SECONDS (10.1-12.7)
== END ==
PROVIDERS: PCP Family Medicine; Visit Provider Family Medicine
DX: I48.91 Unspecified atrial fibrillation (principal); Z79.01 Long term (current) use of anticoagulants
CPT/HCPCS: 85610

== ENCOUNTER → 2022-08-11 11:56 | Outpatient (ROUT) | payer MEDICARE, SELFPAY ==
[2020-01-10 11:05] VITALS: BMI 24.5
[2022-08-11 12:17] LABS: Prothrombin Time 23.6 SECONDS (10.1-12.7)
== END ==
PROVIDERS: PCP Family Medicine; Visit Provider Family Medicine
DX: Z79.01 Long term (current) use of anticoagulants (principal)
CPT/HCPCS: 85610

== ENCOUNTER → 2022-08-25 10:04 | Outpatient (ROUT) | payer MEDICARE, SELFPAY ==
[2020-01-10 11:05] VITALS: BMI 24.5
[2022-08-25 10:16] LABS: INR 1.9 (0.9-1.3)
== END ==
PROVIDERS: PCP Family Medicine; Visit Provider Family Medicine
DX: Z79.01 Long term (current) use of anticoagulants (principal)
CPT/HCPCS: 85610

== ENCOUNTER → 2022-09-06 17:07 | Outpatient (ROUT) | payer MEDICARE, SELFPAY ==
[2020-01-10 11:05] VITALS: BMI 24.5
[2022-09-06 17:33] LABS: INR 2.3 (0.9-1.3); Prothrombin Time 26.3 SECONDS (10.1-12.7)
== END ==
PROVIDERS: PCP Family Medicine; Visit Provider Family Medicine
DX: Z79.01 Long term (current) use of anticoagulants (principal)
CPT/HCPCS: 85610

== ENCOUNTER → 2022-10-05 11:58 | Outpatient (ROUT) | payer MEDICARE, SELFPAY ==
[2020-01-10 11:05] VITALS: BMI 24.5
[2022-10-05 12:14] LABS: INR 2.7 (0.9-1.3); Prothrombin Time 31.2 SECONDS (10.1-12.7)
== END ==
PROVIDERS: PCP Family Medicine; Visit Provider Family Medicine
DX: Z79.01 Long term (current) use of anticoagulants (principal)
CPT/HCPCS: 85610

== ENCOUNTER → 2022-10-29 12:09 | Outpatient (ROUT) | payer MEDICARE, SELFPAY ==
[2020-01-10 11:05] VITALS: BMI 24.5
[2022-10-29 12:17] LABS: INR 4.2 (0.9-1.3); Prothrombin Time 49.4 SECONDS (10.1-12.7)
== END ==
PROVIDERS: PCP Family Medicine; Visit Provider Family Medicine
DX: Z79.01 Long term (current) use of anticoagulants (principal)
CPT/HCPCS: 85610

== ENCOUNTER → 2022-11-05 13:15 | Outpatient (ROUT) | payer MEDICARE, SELFPAY ==
[2020-01-10 11:05] VITALS: BMI 24.5
[2022-11-05 13:21] LABS: INR 2.1 (0.9-1.3); Prothrombin Time 23.8 SECONDS (10.1-12.7)
== END ==
PROVIDERS: PCP Family Medicine; Visit Provider Family Medicine
DX: Z79.01 Long term (current) use of anticoagulants (principal)
CPT/HCPCS: 85610

== ENCOUNTER → 2022-11-18 12:34 | Outpatient (ROUT) | payer MEDICARE, SELFPAY ==
[2020-01-10 11:05] VITALS: BMI 24.5
[2022-11-18 12:43] LABS: INR 5.2 (0.9-1.3)
== END ==
PROVIDERS: PCP Family Medicine; Visit Provider Family Medicine
DX: Z79.01 Long term (current) use of anticoagulants (principal)
CPT/HCPCS: 85610

== ENCOUNTER → 2022-11-26 12:19 | Outpatient (ROUT) | payer MEDICARE, SELFPAY ==
[2020-01-10 11:05] VITALS: BMI 24.5
[2022-11-26 12:40] LABS: INR 4.4 (0.9-1.3); Prothrombin Time 51.2 SECONDS (10.1-12.7)
== END ==
PROVIDERS: PCP Family Medicine; Visit Provider Family Medicine
DX: Z79.01 Long term (current) use of anticoagulants (principal)
CPT/HCPCS: 85610

== ENCOUNTER → 2022-11-29 10:49 | Outpatient (ROUT) | payer MEDICARE, SELFPAY ==
[2020-01-10 11:05] VITALS: BMI 24.5
[2022-11-29 11:03] LABS: INR 1.5 (0.9-1.3); Prothrombin Time 17.3 SECONDS (10.1-12.7)
== END ==
PROVIDERS: PCP Family Medicine; Visit Provider Family Medicine
DX: Z79.01 Long term (current) use of anticoagulants (principal)
CPT/HCPCS: 85610

== ENCOUNTER → 2022-12-06 10:57 | Outpatient (ROUT) | payer MEDICARE, SELFPAY ==
[2020-01-10 11:05] VITALS: BMI 24.5
[2022-12-06 11:08] LABS: INR 1.8 (0.9-1.3); Prothrombin Time 20.6 SECONDS (10.1-12.7)
== END ==
PROVIDERS: PCP Family Medicine; Visit Provider Family Medicine
DX: Z79.01 Long term (current) use of anticoagulants (principal)
CPT/HCPCS: 85610

== ENCOUNTER → 2022-12-13 11:39 | Outpatient (ROUT) | payer MEDICARE, SELFPAY ==
[2020-01-10 11:05] VITALS: BMI 24.5
[2022-12-13 11:55] LABS: INR 2.7 (0.9-1.3); Prothrombin Time 31.3 SECONDS (10.1-12.7)
== END ==
PROVIDERS: PCP Family Medicine; Visit Provider Family Medicine
DX: Z79.01 Long term (current) use of anticoagulants (principal)
CPT/HCPCS: 85610

== ENCOUNTER → 2022-12-20 11:19 | Outpatient (ROUT) | payer MEDICARE, SELFPAY ==
[2020-01-10 11:05] VITALS: BMI 24.5
[2022-12-20 11:36] LABS: INR 3.4 (0.9-1.3); Prothrombin Time 39.5 SECONDS (10.1-12.7)
== END ==
PROVIDERS: PCP Family Medicine; Visit Provider Family Medicine
DX: Z79.01 Long term (current) use of anticoagulants (principal)
CPT/HCPCS: 85610

== ENCOUNTER 2022-12-26 15:34 | Inpatient (IN) | payer MEDICARE, SELFPAY ==
[2020-01-10 11:05] VITALS: BMI 24.5
[2022-12-26] VITALS (44 sets, daily range): BP systolic 111–164; BP diastolic 54–75; PULSE 70–90; RESP 18–21; TEMP 36.9–37.1; O2SAT 89–97; BMI 25.4
--- NOTE | 2022-12-26 15:47 | ED_ITS ---
HPI - General Adult General Chief complaint: Headache Stated complaint: Eye swelling, headaches Time Seen by Provider: 12/26/22 15:40 Source: patient Mode of arrival: Ambulatory Limitations: no limitations History of Present Illness HPI narrative: Patient is an 87-year-old female. Is on anticoagulation secondary to atrial fibrillation. Is here for evaluation of several days of sinus congestion and photophobia which she states is not necessarily new. Also having headaches. She states she occasionally gets headaches. She does take some Tylenol in the improve. At the time of my exam she was not having a headache. She states she generally just does not feel very good. No fevers. No extremity numbness or tingling. No chest pain or shortness of breath. Has taken Tylenol for the headaches otherwise no interventions prior to arrival. Related Data Home Medications Medication Instructions Recorded Confirmed MULTIVITAMIN (MULTI-VITAMINS) 1 tab PO Q DAY ##0 02/17/11 01/10/20 aspirin 81 mg chewable tablet 81 mg PO EVERY OTHER DAY ##0 02/17/11 01/10/20 calcium carbonate 600 mg-vitamin 1 cap PO QDAY ##0 02/17/11 01/10/20 D3 10 mcg (400 unit) capsule (Calcium 600 with Vitamin D3) cholecalciferol (vitamin D3) 10 300 unit PO QDAY ##0 02/17/11 01/10/20 mcg (400 unit) capsule (Vitamin D3) omega 7-qwn-odm-fish oil 1,000 mg 1,000 mg PO QDAY ##0 02/17/11 01/10/20 (120 mg-180 mg) capsule (Fish Oil) simvastatin 40 mg tablet (Zocor) 40 mg PO QPM ##0 02/17/11 01/10/20 calcium polycarbophil 625 mg 1 tab PO QDAY ##0 05/16/17 01/10/20 tablet (FiberCon) losartan 50 mg tablet 50 mg PO BID ##0 05/16/17 01/10/20 melatonin 5 mg tablet 5 mg PO QPM ##0 05/16/17 01/10/20 vitamins A,C,B-tesy-sktcuv 4,296 1 cap PO QDAY ##0 05/16/17 01/10/20 mcg-226 mg-90 mg capsule (PreserVision AREDS) warfarin 5 mg tablet (Coumadin) See Rx Instructions .Route 05/16/17 01/10/20 .COMPLEX ##0 zolpidem 5 mg tablet 5 mg PO HSP PRN sleep ##0 05/16/17 01/10/20 Previous Rx's Medication Instructions Recorded psyllium husk 3.4 gram/5.4 gram 2 tsp PO BID prevent constipation 01/11/20 oral powder (Metamucil) #660 grams sennosides 8.6 mg tablet (senna) 8.6 mg PO BID constipation #1 tab 01/11/20 furosemide 40 mg tablet (Lasix) 40 mg PO DAILY #5 tabs 02/12/21 doxycycline hyclate 100 mg tablet 100 mg PO BID #20 tabs 02/14/21 Allergies Allergy/AdvReac Type Severity Reaction Status Date / Time amoxicillin [AMOXICILLIN] Allergy Severe Hives Verified 02/14/21 19:51 sulfamethoxazole Allergy Verified 02/14/21 19:51 [From ] trimethoprim [From ] Allergy Verified 02/14/21 19:51 Review of Systems Constitutional Constitutional: Reports system reviewed and no additional complaints, except as documented Eyes Eyes: Reports system reviewed and no additional complaints, except as documented ENT Ears, Nose, Mouth, and Throat: Reports system reviewed and no additional complaints, except as documented Cardiovascular Cardiovascular: Reports system reviewed and no additional complaints, except as documented Respiratory Respiratory: Reports system reviewed and no additional complaints, except as documented Gastrointestinal Gastrointestinal: Reports system reviewed and no additional complaints, except as documented Neurologic Neurologic: Reports system reviewed and no additional complaints, except as documented Hematologic/Lymphatic On Anticoagulants: Yes Patient History Medical History CAD (coronary artery disease) Chronic anticoagulation Hyperlipidemia Hypertension Paroxysmal atrial fibrillation with rapid ventricular response Social History household members: spouse Smoking Status: Never smoker Smoking Status: Never smoker alcohol intake frequency: a few times a month Substance Use Type: does not use Exam Initial Vital Signs Initial Vital Signs: Vital Signs Pulse Rate 90 12/26/22 15:44 Pulse Oximetry 92 12/26/22 15:44 Const General: cooperative, healthy appearing, comfortable and No ill appearing HENMT Head: normal to inspection and atraumatic Ears: TM's normal bilaterally and EAC's normal Face and sinus: normal facial exam Eyes General: Yes appearance normal, both eyes and all related structures Resp Effort & Inspection: normal respiratory effort Auscultation: clear to auscultation bilaterally Cardio Rate: regular rate and bradycardic Skin General: no rashes or lesions noted Neuro General: patient alert, patient awake, patient oriented x3 and moves all extremities Extrem General: normal to inspection and capillary refill normal Course Orders Ordered: ED Orders 12/26/22 15:45 Covid-19 + FLU A/B + RSV - PCR Stat 12/26/22 15:47 CT head/brain wo con Stat 12/26/22 16:16 EKG-12 Lead Routine 12/26/22 16:27 XR chest 1V Stat 12/26/22 16:45 Basic Metabolic Panel Stat Complete Blood Count AUTO DIFF Stat Sodium Chloride (Normal Saline 0.9%) 1,000 mls @ 500 mls/hr IV BOLUS ONE Stop: 12/26/22 18:31 Last Admin: 12/26/22 16:54 Dose: 500 mls/hr Documented By: WILIAN Remdesivir 200 mg/ Sodium (Chloride) 250 mls @ 250 mls/hr IV NOW ONE Stop: 12/26/22 18:42 Vital Signs Vital signs: Vital Signs - 8 hr 12/26/22 15:48 12/26/22 15:44 12/26/22 15:45 Temperature 98.8 F Pulse Rate 90 90 89 Respiratory Rate 18 Blood Pressure 132/62 Pulse Oximetry 92 92 92 Oxygen Delivery Method Room Air Oxygen Flow Rate 12/26/22 16:00 12/26/22 16:05 12/26/22 16:10 Temperature Pulse Rate 83 79 77 Respiratory Rate Blood Pressure Pulse Oximetry 91 89 L 89 L Oxygen Delivery Method Room Air Room Air Oxygen Flow Rate 12/26/22 16:15 12/26/22 16:20 12/26/22 16:25 Temperature Pulse Rate 81 78 78 Respiratory Rate Blood Pressure Pulse Oximetry 90 L 89 L 96 Oxygen Delivery Method Room Air Room Air Nasal Cannula Oxygen Flow Rate 2 12/26/22 16:30 12/26/22 16:35 12/26/22 16:40 Temperature Pulse Rate 76 78 78 Respiratory Rate Blood Pressure Pulse Oximetry 94 93 94 Oxygen Delivery Method Nasal Cannula Nasal Cannula Nasal Cannula Oxygen Flow Rate 2 2 2 12/26/22 16:45 12/26/22 16:47 12/26/22 16:47 Temperature Pulse Rate 80 83 Respiratory Rate Blood Pressure 133/62 Pulse Oximetry 93 93 Oxygen Delivery Method Nasal Cannula Nasal Cannula Oxygen Flow Rate 2 2 12/26/22 16:50 12/26/22 16:50 12/26/22 16:55 Temperature Pulse Rate 84 80 Respiratory Rate Blood Pressure 129/56 L Pulse Oximetry 94 94 Oxygen Delivery Method Nasal Cannula Oxygen Flow Rate 2 12/26/22 16:59 12/26/22 17:00 12/26/22 17:00 Temperature Pulse Rate 78 79 Respiratory Rate Blood Pressure 111/54 L Pulse Oximetry 94 94 Oxygen Delivery Method Nasal Cannula Oxygen Flow Rate 2 12/26/22 17:05 12/26/22 17:10 12/26/22 17:10 Temperature Pulse Rate 76 75 Respiratory Rate Blood Pressure 120/60 Pulse Oximetry 94 94 Oxygen Delivery Method Nasal Cannula Nasal Cannula Oxygen Flow Rate 2 2 12/26/22 17:15 12/26/22 17:20 12/26/22 17:20 Temperature Pulse Rate 75 73 Respiratory Rate Blood Pressure 128/60 Pulse Oximetry 94 94 Oxygen Delivery Method Nasal Cannula Nasal Cannula Oxygen Flow Rate 2 2 12/26/22 17:25 12/26/22 17:30 12/26/22 17:30 Temperature Pulse Rate 75 73 Respiratory Rate Blood Pressure 118/56 L Pulse Oximetry 95 94 Oxygen Delivery Method Nasal Cannula Nasal Cannula Oxygen Flow Rate 2 2 12/26/22 17:35 12/26/22 17:40 12/26/22 17:41 Temperature Pulse Rate 73 89 Respiratory Rate Blood Pressure 162/72 H Pulse Oximetry 95 89 L Oxygen Delivery Method Nasal Cannula Room Air Oxygen Flow Rate 2 12/26/22 17:41 12/26/22 17:45 12/26/22 17:50 Temperature Pulse Rate 89 79 Respiratory Rate Blood Pressure 151/57 H Pulse Oximetry 90 L 95 Oxygen Delivery Method Room Air Nasal Cannula Oxygen Flow Rate 2 12/26/22 17:50 Temperature Pulse Rate 74 Respiratory Rate Blood Pressure Pulse Oximetry 95 Oxygen Delivery Method Nasal Cannula Oxygen Flow Rate 2 Medical Decision Making Lab Data Lab results reviewed: Yes I reviewed the patient's lab results. 12/26/22 16:45 12/26/22 16:45 Labs: Lab Results 12/26/22 12/26/22 12/26/22 Range/Units 15:45 16:45 16:45 WBC 5.8 (4.5-11.0) X10^3/uL RBC 4.35 (4.0-5.2) X10^6/uL Hgb 13.4 (12.0-16.0) g/dL Hct 39.7 (36-46) % MCV 91.4 (80-100) fL MCH 30.8 (26-34) PG MCHC 33.7 (30-36) % RDW 14.1 (11.6-14.8) % Plt Count 119 L (150-400) X10^3/uL Neut % (Auto) 71.9 (50-75) % Lymph % (Auto) 19.9 L (25-40) % [place] % (Auto) 8.0 (3-14) % Eos % (Auto) 0.0 L (2-4) % Baso % (Auto) 0.2 (0-2) % Neut # (Auto) 4200 (9909-1059) /uL Lymph # (Auto) 1100 (1173-5086) /uL [place] # (Auto) 500 (0-900) /uL Eos # (Auto) 0 (0-450) /uL Baso # (Auto) 0 (0-100) /uL Sodium 135 L (137-145) mmol/L Potassium 3.6 (3.4-5.1) mmol/L Chloride 100 (98-107) mmol/L Carbon Dioxide 31 (22-32) mmol/L BUN 13 (7-17) mg/dL Creatinine 0.75 (0.52-1.04) mg/dL Estimated GFR > 60 (>60) mL/min BUN/Creatinine Ratio 17.3 (6-22) Glucose 119 H (80-110) mg/dL Calcium 8.6 (8.4-10.2) mg/dL SARS-CoV-2 (PCR) Positive H (Negative) Influenza A (RT-PCR) Flu a negative (NEGATIVE) Influenza B (RT-PCR) Flu b negative (NEGATIVE) RSV (PCR) Negative (Negative) Imaging Data CT scan - head: Radiologist's Impression: PROCEDURE:? CT HEAD/BRAIN WO CON ? INDICATIONS:? anticoagulation with headache ? TECHNIQUE:? Noncontrast 4.5 mm thick angled axial sections acquired from the foramen magnum to the vertex, with coronal and sagittal reformats.? For radiation dose reduction, the following was used:? automated exposure control, adjustment of mA and/or kV according to patient size.? ? COMPARISON:? [facility], CT, CT HEAD/BRAIN WO CON, 02/14/2021, 22:30. ? FINDINGS:? Image quality:? Excellent.? ? CSF spaces:? Basal cisterns are patent.? No extra-axial fluid collections.? The ventricles are symmetric in size and shape.? ? Brain:? No intracranial bleeds or masses.? There is cerebral volume loss for age, with resultant ventricular and sulcal prominence.? There are periventricular and deep white matter chronic small vessel ischemic changes.? There is intracranial internal carotid artery atherosclerosis.? ? Skull and face:? Calvarium and visualized facial bones appear intact, without suspicious lesions.? A soft tissue lipoma can be again seen involving the posterior occipital region, just to the right of the midline measuring up to 3.5 cm. ? Sinuses:? Visualized sinuses and mastoids are clear.? 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 ? ? IMPRESSION:? No acute intracranial hemorrhage is seen.? ? No acute intracranial process is seen.? ? ? Additional findings:? Right posterior occipital region soft tissue lipoma Bilateral lucian bullosa Chest x-ray: Radiologist's Impression: PROCEDURE:? XR CHEST 1V ? INDICATIONS:? hypoxia ? TECHNIQUE:? One view of the chest was acquired.? ? COMPARISON:? [facility], CT, CT HEAD/BRAIN WO CON, 12/26/2022, 15:52.? [facility], CR, XR CHEST 1 VIEW, 02/19/2021, 16:28.? [facility], CR, XR CHEST 1V, 01/30/2021, 16:07.? [facility], CR, XR CHEST 1V, 02/12/2021, 10:15. ? FINDINGS:? ? Surgical changes and devices:? None.? ? Lungs and pleura:? The lungs are hyperexpanded.? Minimal blunting of the left costophrenic angle can be seen.? No pneumothorax is seen. ? Mediastinum:? Mediastinal contours appear normal.? Heart size is moderately enlarged. Atherosclerotic calcification of the aortic arch is noted.? ? ? Bones and chest wall:? No suspicious bony lesions.? Age-appropriate bony degenerative changes are seen.? Mild dextroconvex scoliotic curvature is seen.? ? ? Overlying soft tissues appear unremarkable.? IMPRESSION:? Moderate cardiomegaly with a potential small left-sided pleural effusion. ? The lungs are hyperexpanded ECG Data Attestation: I personally reviewed and interpreted this ECG as follows: Interpretation: Sinus rhythm Ventricular rate 82 Normal QRS Normal QTC No ST T wave changes MDM Narrative Medical decision making narrative: Patient is COVID positive. Patient is hypoxic with ambulation. She is no chest pain. I suspect that her headache and her fatigue or caused by the COVID. There is no indication for antibiotics. Her labs are unremarkable. EKG is unremarkable. Given her hypoxia did discuss the case with Dr. Pack who is on- call for the patient's primary doctor. We will admit for further evaluation and treatment. Patient was given remdesivir. Discharge Plan Departure Patient Disposition: Admitted As Inpatient Clinical Impression: COVID-19, Hypoxia Admit Date/Time: 12/26/22 17:51 Admit Provider: Alessandro Pack
--- NOTE | 2022-12-26 15:47 | DI.CT.S_ITS ---
PROCEDURE: CT HEAD/BRAIN WO CON INDICATIONS: anticoagulation with headache TECHNIQUE: Noncontrast 4.5 mm thick angled axial sections acquired from the foramen magnum to the vertex, with coronal and sagittal reformats. For radiation dose reduction, the following was used: automated exposure control, adjustment of mA and/or kV according to patient size. COMPARISON: [facility], CT, CT HEAD/BRAIN WO CON, 02/14/2021, 22:30. FINDINGS: Image quality: Excellent. CSF spaces: Basal cisterns are patent. No extra-axial fluid collections. The ventricles are symmetric in size and shape. Brain: No intracranial bleeds or masses. There is cerebral volume loss for age, with resultant ventricular and sulcal prominence. There are periventricular and deep white matter chronic small vessel ischemic changes. There is intracranial internal carotid artery atherosclerosis. Skull and face: Calvarium and visualized facial bones appear intact, without suspicious lesions. A soft tissue lipoma can be again seen involving the posterior occipital region, just to the right of the midline measuring up to 3.5 cm. Sinuses: Visualized sinuses and mastoids are clear. 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 IMPRESSION: No acute intracranial hemorrhage is seen. No acute intracranial process is seen. Additional findings: Right posterior occipital region soft tissue lipoma Bilateral lucian bullosa Dictated by: Lew Corbin M.D. on 12/26/2022 at 15:02 Approved by: Lew Corbin M.D. on 12/26/2022 at 15:04
--- NOTE | 2022-12-26 16:27 | DI.RAD.S_ITS ---
PROCEDURE: XR CHEST 1V INDICATIONS: hypoxia TECHNIQUE: One view of the chest was acquired. COMPARISON: [facility], CT, CT HEAD/BRAIN WO CON, 12/26/2022, 15:52. [facility], CR, XR CHEST 1 VIEW, 02/19/2021, 16:28. [facility], CR, XR CHEST 1V, 01/30/2021, 16:07. [facility], CR, XR CHEST 1V, 02/12/2021, 10:15. FINDINGS: Surgical changes and devices: None. Lungs and pleura: The lungs are hyperexpanded. Minimal blunting of the left costophrenic angle can be seen. No pneumothorax is seen. Mediastinum: Mediastinal contours appear normal. Heart size is moderately enlarged. Atherosclerotic calcification of the aortic arch is noted. Bones and chest wall: No suspicious bony lesions. Age-appropriate bony degenerative changes are seen. Mild dextroconvex scoliotic curvature is seen. Overlying soft tissues appear unremarkable. IMPRESSION: Moderate cardiomegaly with a potential small left-sided pleural effusion. The lungs are hyperexpanded. Dictated by: Lew Corbin M.D. on 12/26/2022 at 15:59 Approved by: Lew Corbin M.D. on 12/26/2022 at 16:01
[2022-12-26 16:36] LABS: Influenza A - CEPHEID Flu A NEGATIVE (NEGATIVE); Influenza B - CEPHEID Flu B NEGATIVE (NEGATIVE); Respiratory Syncytial Virus Negative (Negative)
[2022-12-26 16:39] LABS: COVID-19 CEPHEID 4-PLEX PCR POSITIVE (Negative)
[2022-12-26] MEDS: SODIUM CHLORIDE 0.9% 1,000 ML 500 ML IV (16:54)
[2022-12-26 17:13] LABS: Add Manual Diff / Slide Review NO; Basophils Absolute Auto 0 /uL (0-100); Basophils Percent Auto 0.2 % (0-2); Eosinophils Absolute Auto 0 /uL (0-450); Hematocrit 39.7 % (36-46); Hemoglobin 13.4 g/dL (12.0-16.0); Lymphocytes Absolute Auto 1100 /uL (1100-4500); Lymphocytes Percent Auto 19.9 % (25-40); Mean Corpuscular HGB Conc 33.7 % (30-36); Mean Corpuscular Hemoglobin 30.8 PG (26-34); Mean Corpuscular Volume 91.4 fL (80-100); Monocytes Absolute Auto 500 /uL (0-900); Neutrophils Absolute Auto 4200 /uL (1500-7000); Neutrophils Percent Auto 71.9 % (50-75); Platelet Count 119 X10^3/uL (150-400); Red Blood Cell Count 4.35 X10^6/uL (4.0-5.2); Red Cell Distribution Width 14.1 % (11.6-14.8); White Blood Cell Count 5.8 X10^3/uL (4.5-11.0)
[2022-12-26 17:24] LABS: BUN Creatinine Ratio 17.3 (6-22); Blood Urea Nitrogen 13 mg/dL (7-17); Calcium 8.6 mg/dL (8.4-10.2); Carbon Dioxide 31 mmol/L (22-32); Chloride 100 mmol/L (98-107); Estimated Glomerular Filt Rate > 60 mL/min (>60); Glucose 119 mg/dL (80-110); HEMOLYSIS < 15 (0-50); Potassium 3.6 mmol/L (3.4-5.1); Sodium 135 mmol/L (137-145)
--- NOTE | 2022-12-26 17:58 | PC.NURSE ---
Provider asked if this RN could ambulate the patient to see if the patient could maintain blood oxygenation above 92% after ambulation. Patient went down to 87 percent on room air. Patient returned to bed and oxygen reapplied. Provider informed.
[2022-12-26] MEDS: REMDESIVIR 200 MG in SODIUM CHLORIDE 0.9% 210 ML 250 MG IV (18:23)
--- NOTE | 2022-12-26 18:43 | PM.HP.1 ---
History of Present Illness History of Present Illness Date Patient Seen: 12/26/22 Time Patient Seen: 18:43 Date of Onset of Symptoms: 12/23/22 Chief complaint: Eye swelling, headaches Narrative: Patient is an 87-year-old female patient of Dr. Palmer who presents with not feeling well since . Onset of worsening symptoms on Tuesday. Had low-grade fevers and just not feeling well. Kind of run down. . Started to have increasing symptoms Tuesday. With severe headache. Some muscle aches starting to be short of breath. No nausea vomiting diarrhea no chest pain or other changes. Did not feel like she was having any trouble breathing until today. Started having more trouble. But had no other significant changes. Does have a history of AFib. Feels like it has been going well. INR today was elevated but otherwise has been stable has been on Coumadin for some time. has similar symptoms. [facility] Medical History CAD (coronary artery disease) Chronic anticoagulation Hyperlipidemia Hypertension Paroxysmal atrial fibrillation with rapid ventricular response Social History household members: spouse Smoking Status: Never smoker Meds Home Medications and Allergies Home Medications Medication Instructions Recorded Confirmed Type MULTIVITAMIN (MULTI-VITAMINS) 1 tab PO Q DAY ##0 02/17/11 01/10/20 History aspirin 81 mg chewable tablet 81 mg PO EVERY OTHER DAY ##0 02/17/11 01/10/20 History calcium carbonate 600 mg-vitamin 1 cap PO QDAY ##0 02/17/11 01/10/20 History D3 10 mcg (400 unit) capsule (Calcium 600 with Vitamin D3) cholecalciferol (vitamin D3) 10 300 unit PO QDAY ##0 02/17/11 01/10/20 History mcg (400 unit) capsule (Vitamin D3) omega 6-fex-mei-fish oil 1,000 mg 1,000 mg PO QDAY ##0 02/17/11 01/10/20 History (120 mg-180 mg) capsule (Fish Oil) simvastatin 40 mg tablet (Zocor) 40 mg PO QPM ##0 02/17/11 01/10/20 History calcium polycarbophil 625 mg 1 tab PO QDAY ##0 05/16/17 01/10/20 History tablet (FiberCon) losartan 50 mg tablet 50 mg PO BID ##0 05/16/17 01/10/20 History melatonin 5 mg tablet 5 mg PO QPM ##0 05/16/17 01/10/20 History vitamins A,C,G-kdgy-urdqte 4,296 1 cap PO QDAY ##0 05/16/17 01/10/20 History mcg-226 mg-90 mg capsule (PreserVision AREDS) warfarin 5 mg tablet (Coumadin) See Rx Instructions .Route 05/16/17 01/10/20 History .COMPLEX ##0 zolpidem 5 mg tablet 5 mg PO HSP PRN sleep ##0 05/16/17 01/10/20 History psyllium husk 3.4 gram/5.4 gram 2 tsp PO BID prevent constipation 01/11/20 Rx oral powder (Metamucil) #660 grams sennosides 8.6 mg tablet (senna) 8.6 mg PO BID constipation #1 tab 01/11/20 Rx furosemide 40 mg tablet (Lasix) 40 mg PO DAILY #5 tabs 02/12/21 Rx doxycycline hyclate 100 mg tablet 100 mg PO BID #20 tabs 02/14/21 Rx Allergies Allergy/AdvReac Type Severity Reaction Status Date / Time amoxicillin [AMOXICILLIN] Allergy Severe Hives Verified 02/14/21 19:51 sulfamethoxazole Allergy Verified 02/14/21 19:51 [From ] trimethoprim [From ] Allergy Verified 02/14/21 19:51 Review of Systems Review of Systems Narrative: As above. Exam Vital Signs (past 8 hours): - 12/26/22 15:48 12/26/22 15:44 12/26/22 15:45 Temperature 98.8 F Pulse Rate 90 90 89 Respiratory Rate 18 Blood Pressure 132/62 Pulse Oximetry 92 92 92 Oxygen Delivery Method Room Air Oxygen Flow Rate 12/26/22 16:00 12/26/22 16:05 12/26/22 16:10 Temperature Pulse Rate 83 79 77 Respiratory Rate Blood Pressure Pulse Oximetry 91 89 L 89 L Oxygen Delivery Method Room Air Room Air Oxygen Flow Rate 12/26/22 16:15 12/26/22 16:20 12/26/22 16:25 Temperature Pulse Rate 81 78 78 Respiratory Rate Blood Pressure Pulse Oximetry 90 L 89 L 96 Oxygen Delivery Method Room Air Room Air Nasal Cannula Oxygen Flow Rate 2 12/26/22 16:30 12/26/22 16:35 12/26/22 16:40 Temperature Pulse Rate 76 78 78 Respiratory Rate Blood Pressure Pulse Oximetry 94 93 94 Oxygen Delivery Method Nasal Cannula Nasal Cannula Nasal Cannula Oxygen Flow Rate 2 2 2 12/26/22 16:45 12/26/22 16:47 12/26/22 16:47 Temperature Pulse Rate 80 83 Respiratory Rate Blood Pressure 133/62 Pulse Oximetry 93 93 Oxygen Delivery Method Nasal Cannula Nasal Cannula Oxygen Flow Rate 2 2 12/26/22 16:50 12/26/22 16:50 12/26/22 16:55 Temperature Pulse Rate 84 80 Respiratory Rate Blood Pressure 129/56 L Pulse Oximetry 94 94 Oxygen Delivery Method Nasal Cannula Oxygen Flow Rate 2 12/26/22 16:59 12/26/22 17:00 12/26/22 17:00 Temperature Pulse Rate 78 79 Respiratory Rate Blood Pressure 111/54 L Pulse Oximetry 94 94 Oxygen Delivery Method Nasal Cannula Oxygen Flow Rate 2 12/26/22 17:05 12/26/22 17:10 12/26/22 17:10 Temperature Pulse Rate 76 75 Respiratory Rate Blood Pressure 120/60 Pulse Oximetry 94 94 Oxygen Delivery Method Nasal Cannula Nasal Cannula Oxygen Flow Rate 2 2 12/26/22 17:15 12/26/22 17:20 12/26/22 17:20 Temperature Pulse Rate 75 73 Respiratory Rate Blood Pressure 128/60 Pulse Oximetry 94 94 Oxygen Delivery Method Nasal Cannula Nasal Cannula Oxygen Flow Rate 2 2 12/26/22 17:25 12/26/22 17:30 12/26/22 17:30 Temperature Pulse Rate 75 73 Respiratory Rate Blood Pressure 118/56 L Pulse Oximetry 95 94 Oxygen Delivery Method Nasal Cannula Nasal Cannula Oxygen Flow Rate 2 2 12/26/22 17:35 12/26/22 17:40 12/26/22 17:41 Temperature Pulse Rate 73 89 Respiratory Rate Blood Pressure 162/72 H Pulse Oximetry 95 89 L Oxygen Delivery Method Nasal Cannula Room Air Oxygen Flow Rate 2 12/26/22 17:41 12/26/22 17:45 12/26/22 17:50 Temperature Pulse Rate 89 79 Respiratory Rate Blood Pressure 151/57 H Pulse Oximetry 90 L 95 Oxygen Delivery Method Room Air Nasal Cannula Oxygen Flow Rate 2 12/26/22 17:50 12/26/22 17:55 Temperature Pulse Rate 74 74 Respiratory Rate Blood Pressure Pulse Oximetry 95 95 Oxygen Delivery Method Nasal Cannula Nasal Cannula Oxygen Flow Rate 2 2 Oxygen Delivery Method Nasal Cannula Oxygen Flow Rate 2 Narrative Exam Narrative: Alert elderly female sitting comfortably in bed in no acute distress. Mucous membranes moist neck supple without adenopathy lungs are clear heart is regular rate and rhythm without murmurs clicks rubs or gallops abdomen is soft positive bowel sounds nontender. Extremities without cyanosis clubbing edema. Objective Labs 12/26/22 16:45 12/26/22 16:45 Labs: Laboratory Results - last 24 hr 12/26/22 12/26/22 12/26/22 15:45 16:45 16:45 WBC 5.8 RBC 4.35 Hgb 13.4 Hct 39.7 MCV 91.4 MCH 30.8 MCHC 33.7 RDW 14.1 Plt Count 119 L Neut % (Auto) 71.9 Lymph % (Auto) 19.9 L [place] % (Auto) 8.0 Eos % (Auto) 0.0 L Baso % (Auto) 0.2 Neut # (Auto) 4200 Lymph # (Auto) 1100 [place] # (Auto) 500 Eos # (Auto) 0 Baso # (Auto) 0 Sodium 135 L Potassium 3.6 Chloride 100 Carbon Dioxide 31 BUN 13 Creatinine 0.75 Estimated GFR > 60 BUN/Creatinine Ratio 17.3 Glucose 119 H Calcium 8.6 SARS-CoV-2 (PCR) Positive H Influenza A (RT-PCR) Flu a negative Influenza B (RT-PCR) Flu b negative RSV (PCR) Negative Assessment & Plan Assessment & Plan narrative: Respiratory failure. Probably secondary to COVID. Does not appear to be severe. Oxygen support. Does not appear to be infection other than the COVID and will follow. Hopefully we will not need more treatment COVID pneumonia. Will begin dexamethasone already remdesivir. I do not think we have to give any further treatment. Will see how it goes. Proceed from there. She understands questions answered suspect it will be a few days before she gets better. Will see how she does. History of atrial fibrillation stable. Anticoagulation is too much today. Will hold and follow from there. INR in the morning. Will probably take a few days. Rate control seems good since she is in sinus rhythm. History of coronary artery disease. Stable. History of hypertension. Stable at this time usual medications. Very pressure looks good today. Code status no code. GI prophylaxis not needed. DVT prophylaxis anticoagulated. Disposition. Will continue supportive care. Follow from there. 50 minutes spent with patient emergency room doctor reviewing data discussion with patient orders and history
[2022-12-26] MEDS: LOSARTAN 50 MG TABLET PO (22:26)
[2022-12-26] MEDS: ZOLPIDEM 5 MG TABLET PO (22:28)
[2022-12-26] MEDS: ACETAMINOPHEN 325 MG TABLET 650 MG PO (22:31)
[2022-12-27] VITALS (7 sets, daily range): BP systolic 116–145; BP diastolic 61–78; PULSE 67–86; RESP 17–20; TEMP 36.1–36.9; O2SAT 92–95
[2022-12-27] MEDS: ACETAMINOPHEN 325 MG TABLET 650 MG PO ×3 (04:12→17:39)
[2022-12-27 06:30] LABS: Add Manual Diff / Slide Review NO; Basophils Absolute Auto 0 /uL (0-100); Basophils Percent Auto 0.4 % (0-2); Eosinophils Absolute Auto 0 /uL (0-450); Hematocrit 38.1 % (36-46); Hemoglobin 12.7 g/dL (12.0-16.0); Lymphocytes Absolute Auto 1200 /uL (1100-4500); Lymphocytes Percent Auto 27.7 % (25-40); Mean Corpuscular HGB Conc 33.4 % (30-36); Mean Corpuscular Hemoglobin 30.8 PG (26-34); Monocytes Absolute Auto 400 /uL (0-900); Monocytes Percent Auto 8.4 % (3-14); Neutrophils Absolute Auto 2700 /uL (1500-7000); Neutrophils Percent Auto 63.5 % (50-75); Platelet Count 104 X10^3/uL (150-400); Red Blood Cell Count 4.14 X10^6/uL (4.0-5.2); Red Cell Distribution Width 14.1 % (11.6-14.8); White Blood Cell Count 4.2 X10^3/uL (4.5-11.0)
[2022-12-27 06:39] LABS: INR 1.9 (0.9-1.3); Prothrombin Time 21.7 SECONDS (10.1-12.7)
[2022-12-27 06:44] LABS: Alanine Aminotransferase 23 IU/L (<35); Albumin 2.9 g/dL (3.5-5.0); Albumin Globulin Ratio 1.1 (1.0-2.8); Alkaline Phosphatase 36 U/L (38-126); Aspartate Aminotransferase 24 IU/L (14-36); BUN Creatinine Ratio 21.8 (6-22); Bilirubin Total 0.2 mg/dL (0.2-1.3); Blood Urea Nitrogen 12 mg/dL (7-17); Calcium 7.7 mg/dL (8.4-10.2); Carbon Dioxide 30 mmol/L (22-32); Chloride 105 mmol/L (98-107); Estimated Glomerular Filt Rate > 60 mL/min (>60); Globulin 2.6 g/dL (1.7-4.1); Glucose 89 mg/dL (80-110); HEMOLYSIS < 15 (0-50); Potassium 3.5 mmol/L (3.4-5.1); Sodium 137 mmol/L (137-145); Total Protein 5.5 g/dL (6.3-8.2)
[2022-12-27] MEDS: PSYLLIUM HUSK 1 PACKET PO (08:36)
[2022-12-27] MEDS: FUROSEMIDE 40 MG TABLET PO (08:36)
[2022-12-27] MEDS: LOSARTAN 50 MG TABLET PO ×2 (08:36→21:55)
[2022-12-27] MEDS: ASPIRIN 81 MG CHEW TAB PO (13:42)
[2022-12-27] MEDS: POTASSIUM CHLORIDE 20 MEQ TAB PO (13:43)
--- NOTE | 2022-12-27 13:55 | P.PN_ITS ---
Subjective Subjective Date Patient Seen: 12/27/22 Time Patient Seen: 13:55 Interval history: Reviewed chart and met with patient. Reviewed workup in ER as well as h ospitalization and diagnostics done. Patient is feeling better today. She states that the headache that was so severe that felt like somebody stabbed her in the back of her head that was located posterior occiput bilaterally and radiating forward to her bifrontal area is almost completely gone. She is been receiving Tylenol. She denies any neurologic symptoms. She feels her breathing is getting better in her myalgias and arthralgias or getting better. She is able to eat. She is urinating n ormally but has not had a bowel movement. She has not had a fever. Twelve point review of systems is otherwise negative other than above No chest pain or lightheadedness or dizziness or falls Exam Vital Signs (past 8 hours): - 12/27/22 08:00 Blood Pressure 138/78 Pulse Oximetry 94 Oxygen Flow Rate 0 Oxygen Delivery Method Nasal Cannula Oxygen Flow Rate 0 Narrative Exam Narrative: Afebrile vital signs are stable. O2 sat on 1 L nasal cannula 95% HEENT is unremarkable. Mucous membranes moist and pink. Patient with no increased work of breathing. Patient with pain at the proximal insertion of her occiput bilaterally Neck: Supple without adenopathy or masses or thyromegaly Chest: Decreased breath sounds bibasilar with some scattered wheezes but no rhonchi or crackles Cor: Regular rate and rhythm without a murmur, distant S1-S2 Abdomen: Positive bowel sounds, soft, nontender, nondistended Extremities: No edema pulses intact Objective Labs 12/27/22 06:15 12/27/22 06:15 Labs: Laboratory Results - last 24 hr 12/26/22 12/26/22 12/26/22 15:45 16:45 16:45 WBC 5.8 RBC 4.35 Hgb 13.4 Hct 39.7 MCV 91.4 MCH 30.8 MCHC 33.7 RDW 14.1 Plt Count 119 L Neut % (Auto) 71.9 Lymph % (Auto) 19.9 L [place] % (Auto) 8.0 Eos % (Auto) 0.0 L Baso % (Auto) 0.2 Neut # (Auto) 4200 Lymph # (Auto) 1100 [place] # (Auto) 500 Eos # (Auto) 0 Baso # (Auto) 0 PT INR Sodium 135 L Potassium 3.6 Chloride 100 Carbon Dioxide 31 BUN 13 Creatinine 0.75 Estimated GFR > 60 BUN/Creatinine Ratio 17.3 Glucose 119 H Calcium 8.6 Total Bilirubin AST ALT Alkaline Phosphatase Total Protein Albumin Globulin Albumin/Globulin Ratio SARS-CoV-2 (PCR) Positive H Influenza A (RT-PCR) Flu a negative Influenza B (RT-PCR) Flu b negative RSV (PCR) Negative 12/27/22 12/27/22 12/27/22 06:15 06:15 06:15 WBC 4.2 L RBC 4.14 Hgb 12.7 Hct 38.1 MCV 92.0 MCH 30.8 MCHC 33.4 RDW 14.1 Plt Count 104 L Neut % (Auto) 63.5 Lymph % (Auto) 27.7 [place] % (Auto) 8.4 Eos % (Auto) 0.0 L Baso % (Auto) 0.4 Neut # (Auto) 2700 Lymph # (Auto) 1200 [place] # (Auto) 400 Eos # (Auto) 0 Baso # (Auto) 0 PT 21.7 H D INR 1.9 H Sodium 137 Potassium 3.5 Chloride 105 Carbon Dioxide 30 BUN 12 Creatinine 0.55 Estimated GFR > 60 BUN/Creatinine Ratio 21.8 Glucose 89 Calcium 7.7 L Total Bilirubin 0.2 AST 24 ALT 23 Alkaline Phosphatase 36 L Total Protein 5.5 L Albumin 2.9 L Globulin 2.6 Albumin/Globulin Ratio 1.1 SARS-CoV-2 (PCR) Influenza A (RT-PCR) Influenza B (RT-PCR) RSV (PCR) [facility] Medical History CAD (coronary artery disease) Chronic anticoagulation Hyperlipidemia Hypertension Paroxysmal atrial fibrillation with rapid ventricular response Social History household members: spouse Smoking Status: Never smoker alcohol intake: never Assessment & Plan Assessment & Plan narrative: Assessment & Plan narrative: 1. Respiratory failure.? Probably secondary to COVID.? Does not appear to be severe.? Oxygen support.? Does not appear to be infection other than the COVID and will follow.? 2. COVID pneumonia.? Will begin dexamethasone already remdesivir.? I do not think we have to give any further treatment.? Clinically seems to be improving 3. Headache suspect related to COVID-19. Symptoms have abated. Reviewed CT scan which does not show etiology for headache. We will consider further imaging if she is recurrence. 4. History of atrial fibrillation stable.? Anticoagulation is too much today.? Will hold and follow from there.? INR in the morning.? Will probably take a few days.? Rate control seems good since she is in sinus rhythm.? 5. History of coronary artery disease.? Stable.? No current symptoms 6. hypertension.? Stable at this time usual medications.? Code status no code.? GI prophylaxis not needed.? DVT prophylaxis anticoagulated with Coumadin Disposition.? Will continue supportive care.? Follow from there. Hopefully patient will continue to improve in maybe up to go home tomorrow or Tuesday. 55 minutes spent with patient discussing with physician, nurses, reviewing chart and workup and formulating and documenting a plan.
[2022-12-27] MEDS: BUDESONIDE 3 MG CAP 6 MG PO (15:26)
--- NOTE | 2022-12-27 15:44 | CM.DANOTE ---
Patient is an 87 yo female who was admitted on 12/26/22 for COVID+pneumonia. Pt has MCR and her PCP is Dr. Sharmila Palmer. EMR was reviewed. Per MD, pt admitted for COVID pneumonia and on 2LO2 and no home oxygen at baseline. SW spoke with MD and she confirms that pt is typically quite independent at baseline and does not feel any PT/OT orders needed yet at this time. Pt's spouse is also admitted for COVID and will attempt to see if pt and spouse can be in the same room for admission due to their age and would also assist with conserving staff/hospital resources. Pt last admission was in December 2019 and pt was able to d/c home after HIDA scan with no needs. Plan: SW to follow closely for discussion with pt tomorrow after determining pt's progress for any identified discharge planning needs. 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 Yes Advance Directives on File Yes: POLST ON FILE History Provided By Patient,Medical Record Has Patient been admitted in last 30 No days? Prior Living Arrangements RV Household Members spouse Type of transporation used prior to Drives own vehicle admit Independent with ADL's Yes Is patient alert and oriented? Yes Caregiver for Another No Barriers to Discharge Yes Comment COVID+ Discharge Plan Home Transportation Arrangement unclear Referrals Initiated None needed Additional Comment Pending pt progress and oxygen needs Review Status In Process Please Provide Date Initial DC 12/27/22 Assessment Was Performed Next Review Type Continued Stay Review
[2022-12-27] MEDS: WARFARIN 5 MG TABLET 2.5 MG PO (17:19)
[2022-12-27] MEDS: ATORVASTATIN 20 MG TABLET PO (21:55)
[2022-12-27] MEDS: ZOLPIDEM 5 MG TABLET PO (21:56)
[2022-12-27] MEDS: METOPROLOL IR 25 MG TABLET PO (21:56)
[2022-12-28] VITALS: BP 147/68; PULSE 62; RESP 18; TEMP 36.4; O2SAT 95
[2022-12-28 04:00] VITALS: BP 166/77; PULSE 64; RESP 18; TEMP 36.5; O2SAT 97
[2022-12-28 06:07] LABS: Add Manual Diff / Slide Review NO; Basophils Absolute Auto 0 /uL (0-100); Basophils Percent Auto 0.1 % (0-2); Eosinophils Absolute Auto 0 /uL (0-450); Hemoglobin 13.5 g/dL (12.0-16.0); Lymphocytes Absolute Auto 1200 /uL (1100-4500); Lymphocytes Percent Auto 57.2 % (25-40); Mean Corpuscular HGB Conc 33.8 % (30-36); Mean Corpuscular Hemoglobin 30.9 PG (26-34); Mean Corpuscular Volume 91.2 fL (80-100); Monocytes Absolute Auto 300 /uL (0-900); Neutrophils Absolute Auto 600 /uL (1500-7000); Neutrophils Percent Auto 29.7 % (50-75); Platelet Count 124 X10^3/uL (150-400); Red Blood Cell Count 4.38 X10^6/uL (4.0-5.2); Red Cell Distribution Width 14.2 % (11.6-14.8); White Blood Cell Count 2.2 X10^3/uL (4.5-11.0)
[2022-12-28 06:14] LABS: INR 1.8 (0.9-1.3); Prothrombin Time 21.1 SECONDS (10.1-12.7)
[2022-12-28 06:19] LABS: BUN Creatinine Ratio 32.1 (6-22); Blood Urea Nitrogen 18 mg/dL (7-17); Carbon Dioxide 28 mmol/L (22-32); Chloride 105 mmol/L (98-107); Estimated Glomerular Filt Rate > 60 mL/min (>60); Glucose 109 mg/dL (80-110); HEMOLYSIS < 15 (0-50); Potassium 3.8 mmol/L (3.4-5.1); Sodium 138 mmol/L (137-145)
[2022-12-28 08:00] VITALS: BP 149/68; PULSE 67; RESP 20; TEMP 36.5; O2SAT 95
--- NOTE | 2022-12-28 08:35 | P.DS_ITS ---
History of Present Illness History of Present Illness Date Patient Seen: 12/28/22 Time Patient Seen: 08:35 Chief complaint: Eye swelling, headaches Discharge Providers Provider Date of admission: 12/26/22 17:51 Discharge Date: 12/28/22 Primary care physician: Sharmila Palmer MD Consults: 12/26/22 20:37 Consult to Discharge Planning Routine Comment: Discharge provider: Sharmila Palmer MD Summary Hospital Course Discharge Diagnosis: COVID-19 pneumonia Acute respiratory failure, improved Hypertension, stable Atrial fibrillation with well-controlled rate Hyperlipidemia Hospital Course: Patient admitted to the hospital with complaints of severe headache and chills. Patient was found to be positive for COVID-19 pneumonia and had acute respiratory failure. She required a maximum I believe of 3 L nasal cannula oxygen and was weaned off by hospital day 3. And day of discharge. She was placed on remdesivir and dexamethasone and tolerated this well. She was maintained on her outpatient medications for hypertension and atrial fibrillation. She was close to her baseline at the time of discharge Status at Discharge Cognitive/behavioral status at discharge: oriented Functional status at discharge: independent ambulation Overall status at discharge: patient is progressing back to baseline Exam Vital Signs (past 8 hours): - 12/28/22 04:00 Temperature 97.7 F Pulse Rate 64 Respiratory Rate 18 Blood Pressure 166/77 H Pulse Oximetry 97 Oxygen Flow Rate 0 Fraction of Inspired Oxygen 29 SaO2/FiO2 Ratio 317 Oxygen Delivery Method Nasal Cannula Oxygen Flow Rate 0 Narrative Exam Narrative: Afebrile vital signs are stable HEENT: Unremarkable Patient is alert and oriented x3 Neck: Supple without adenopathy Chest: Clear to auscultation without wheezes rhonchi or crackles Cor: Distant S1-S2. Irregularly irregular rhythm at a well-controlled rate Abdomen: Positive bowel sounds, soft, nontender, nondistended Extremities: No edema, pulses intact Neurologic exam nonfocal Objective Labs 12/28/22 05:55 12/28/22 05:55 Labs: Laboratory Results - last 24 hr 12/28/22 12/28/22 12/28/22 05:55 05:55 05:55 WBC 2.2 L RBC 4.38 Hgb 13.5 Hct 40.0 MCV 91.2 MCH 30.9 MCHC 33.8 RDW 14.2 Plt Count 124 L Neut % (Auto) 29.7 L D Lymph % (Auto) 57.2 H D [place] % (Auto) 13.0 Eos % (Auto) 0.0 L Baso % (Auto) 0.1 Neut # (Auto) 600 L Lymph # (Auto) 1200 [place] # (Auto) 300 Eos # (Auto) 0 Baso # (Auto) 0 PT 21.1 H INR 1.8 H Sodium 138 Potassium 3.8 Chloride 105 Carbon Dioxide 28 BUN 18 H Creatinine 0.56 Estimated GFR > 60 BUN/Creatinine Ratio 32.1 H Glucose 109 Calcium 8.0 L PFS Medical History CAD (coronary artery disease) Chronic anticoagulation Hyperlipidemia Hypertension Paroxysmal atrial fibrillation with rapid ventricular response Social History household members: spouse Smoking Status: Never smoker alcohol intake: never Discharge Assessment & Plan Assessment and Plan Assessment: COVID-19 pneumonia Acute respiratory failure, improved Hypertension, stable Atrial fibrillation with well-controlled rate Hyperlipidemia Neutropenia Plan of Treatment: Discharge to home with routine outpatient medications. No further dexamethasone or remdesivir. Patient with neutropenia today. We will check labs early next week and see her back. We discussed signs symptoms of concern and questions answered. Discharge Plan Discharge Plan Patient Disposition: Home Discharge orders & Medications Prescriptions: Continued simvastatin [Zocor] 40 MG tablet 40 mg PO QPM Qty: 0 omega 5-kdy-ozs-fish oil [Fish Oil] 1,000 MG capsule 1,000 mg PO QDAY Qty: 0 calcium carbonate-vitamin D3 [Calcium 600 with Vitamin D3] 600 MG/200 IU capsule 1 cap PO QDAY Qty: 0 MULTIVITAMIN (MULTI-VITAMINS) 1 tab PO Q DAY Qty: 0 cholecalciferol (vitamin D3) [Vitamin D3] 400 unit capsule 300 unit PO QDAY Qty: 0 losartan 50 MG tablet 50 mg PO BID Qty: 0 warfarin [Coumadin] 5 MG tablet See Rx Instructions .ROUTE .COMPLEX Qty: 0 Rx Instructions: 2.5 mg by mouth for two days, skipping dose the next two days and so forth melatonin 5 MG tablet 5 mg PO QPM Qty: 0 PreserVision AREDS 1 EACH capsule 1 cap PO QDAY Qty: 0 alendronate 70 mg tablet 70 mg PO QWEEK Patient Comments: Take 70 mg by mouth once a week trazodone 100 mg tablet 100 mg PO QPM Patient Comments: take 1 tablet by mouth nightly amiodarone 200 mg Tablet 200 mg PO DAILY amlodipine 2.5 mg Tablet 2.5 mg PO DAILY budesonide 3 mg Capsule,Delayed,Extend.Release 6 mg PO DAILY metoprolol tartrate 25 mg Tablet 25 mg PO BID hydrochlorothiazide 12.5 mg Tablet 12.5 mg PO DAILY furosemide [Lasix] 40 mg tablet 40 mg PO DAILY Qty: 5 0RF Follow up/Referrals: Sharmila Palmer MD [Primary Care Provider] - Visit Report/Discharge Packet Stand Alone Forms: Patient Portal/API, Stroke Signs & Symptoms Discharge Data Primary Care Provider: Sharmila Palmer
[2022-12-28] MEDS: hydroCHLOROthiazide 25 MG TABLET 12.5 MG PO (09:02)
[2022-12-28] MEDS: LOSARTAN 50 MG TABLET PO (09:02)
[2022-12-28] MEDS: METOPROLOL IR 25 MG TABLET PO (09:02)
[2022-12-28] MEDS: BUDESONIDE 3 MG CAP 6 MG PO (09:03)
[2022-12-28] MEDS: CALCIUM CARBONATE 500 MG TAB PO (09:03)
[2022-12-28] MEDS: AMIODARONE 200 MG TABLET PO (09:03)
[2022-12-28] MEDS: MULTIVITAMIN 1 TABLET 1 TAB PO (09:03)
[2022-12-28] MEDS: AMLODIPINE 5 MG TABLET 2.5 MG PO (09:03)
[2022-12-28] MEDS: FUROSEMIDE 40 MG TABLET PO (09:03)
[2022-12-28] MEDS: PSYLLIUM HUSK 1 PACKET PO (09:04)
[2022-12-28] MEDS: FISH OIL 1,000 MG CAPSULE 1000 MG PO (09:08)
[2022-12-28] MEDS: CHOLECALCIFEROL (VITAMIN D3) 400 UNIT TABLET PO (09:08)
[2022-12-28] MEDS: ACETAMINOPHEN 325 MG TABLET 650 MG PO (09:11)
--- NOTE | 2022-12-28 12:34 | PC.NURSE ---
Pt is A&OX4, on RA overnight per lead pharmacy technician and tolerated well. Independent to the bathroom and back in the room, ambulating with steady gait and denies SOB/dizziness. She states her severe headache has resolved and has a good appetite this a.m. MD at bedside this a.m. clearing her for discharge home. She verbalizes understanding of medications, and activity as well as worsening symptoms. She states she is following up with MD Palmer (PCP) within the week. She states after discharge she will ambulate to visit her who is a patient in 230 and is escorted with her belongings.
--- NOTE | 2022-12-28 14:40 | CM.DPC ---
DCP Discharge Home Per MD, pt medically stable to d/c home today and on room air and no identified discharge planning needs. Per RN, given discharge instructions and pt agreeable with d/c today as her is admitted for similar and not ready for d/c yet. Plan: Patient to d/c home today and plans to visit who is admitted and outpt f/u and no further SW needs at this time. JULIUS Bhatt
== END 2022-12-28 11:45 | disposition home or self-care (01) | DRG 177 ==
LOC: ED 17:43 → AC 17:52
PROVIDERS: Admitting Provider Family Medicine; Emergency Provider Emergency Medicine; PCP Family Medicine; Referring Provider Emergency Medicine; Visit Provider Family Medicine
DX: U07.1 COVID-19 (principal); J12.82 Pneumonia due to coronavirus disease 2019; J96.01 Acute respiratory failure with hypoxia; I25.10 Atherosclerotic heart disease of native coronary artery without angina pectoris; I10 Essential (primary) hypertension; I48.91 Unspecified atrial fibrillation; E78.5 Hyperlipidemia, unspecified; Z79.01 Long term (current) use of anticoagulants
CPT/HCPCS: 0241U; 36415; 70450; 71045; 80048; 80053; 85025; 85610; 93005; 94762; 96365; 99285; A9270

== ENCOUNTER → 2023-01-05 15:48 | Outpatient (ROUT) | payer MEDICARE, SELFPAY ==
[2022-12-26 21:16] VITALS: BMI 25.4
[2023-01-05 16:12] LABS: INR 1.6 (0.9-1.3)
== END ==
PROVIDERS: PCP Family Medicine; Visit Provider Family Medicine
DX: Z79.01 Long term (current) use of anticoagulants (principal)
CPT/HCPCS: 85610

== ENCOUNTER → 2023-01-14 14:06 | Outpatient (ROUT) | payer MEDICARE, SELFPAY ==
[2022-12-26 21:16] VITALS: BMI 25.4
[2023-01-14 14:18] LABS: INR 3.9 (0.9-1.3); Prothrombin Time 44.9 SECONDS (10.1-12.7)
== END ==
PROVIDERS: PCP Family Medicine; Visit Provider Family Medicine
DX: Z79.01 Long term (current) use of anticoagulants (principal)
CPT/HCPCS: 85610

== ENCOUNTER → 2023-01-21 11:54 | Outpatient (ROUT) | payer MEDICARE, SELFPAY ==
[2022-12-26 21:16] VITALS: BMI 25.4
[2023-01-21 12:03] LABS: INR 2.9 (0.9-1.3)
== END ==
PROVIDERS: PCP Family Medicine; Visit Provider Family Medicine
DX: Z79.01 Long term (current) use of anticoagulants (principal)
CPT/HCPCS: 85610

== ENCOUNTER → 2023-01-31 09:53 | Outpatient (ROUT) | payer MEDICARE, SELFPAY ==
[2022-12-26 21:16] VITALS: BMI 25.4
== END ==
PROVIDERS: PCP Family Medicine; Visit Provider Family Medicine
DX: Z79.01 Long term (current) use of anticoagulants (principal)
CPT/HCPCS: 85610

== ENCOUNTER → 2023-02-09 09:41 | Outpatient (ROUT) | payer MEDICARE, SELFPAY ==
[2022-12-26 21:16] VITALS: BMI 25.4
[2023-02-09 09:53] LABS: INR 2.5 (0.9-1.3); Prothrombin Time 29.3 SECONDS (10.1-12.7)
== END ==
PROVIDERS: PCP Family Medicine; Visit Provider Family Medicine
DX: Z79.01 Long term (current) use of anticoagulants (principal)
CPT/HCPCS: 85610

== ENCOUNTER → 2023-02-23 11:27 | Outpatient (ROUT) | payer MEDICARE, SELFPAY ==
[2022-12-26 21:16] VITALS: BMI 25.4
[2023-02-23 11:40] LABS: INR 1.9 (0.9-1.3); Prothrombin Time 22.5 SECONDS (10.1-12.7)
== END ==
PROVIDERS: PCP Family Medicine; Visit Provider Family Medicine
DX: I48.91 Unspecified atrial fibrillation (principal)
CPT/HCPCS: 85610

== ENCOUNTER → 2023-03-02 11:33 | Outpatient (ROUT) | payer MEDICARE, SELFPAY ==
[2022-12-26 21:16] VITALS: BMI 25.4
[2023-03-02 11:41] LABS: INR 2.3 (0.9-1.3); Prothrombin Time 26.3 SECONDS (10.1-12.7)
== END ==
PROVIDERS: PCP Family Medicine; Visit Provider Family Medicine
DX: Z79.01 Long term (current) use of anticoagulants (principal)
CPT/HCPCS: 85610

== ENCOUNTER → 2023-03-09 11:07 | Outpatient (ROUT) | payer MEDICARE, SELFPAY ==
[2022-12-26 21:16] VITALS: BMI 25.4
[2023-03-09 11:20] LABS: INR 1.9 (0.9-1.3); Prothrombin Time 22.4 SECONDS (10.1-12.7)
== END ==
PROVIDERS: PCP Family Medicine; Visit Provider Family Medicine
DX: Z79.01 Long term (current) use of anticoagulants (principal)
CPT/HCPCS: 85610

== ENCOUNTER → 2023-03-30 11:07 | Outpatient (ROUT) | payer MEDICARE, SELFPAY ==
[2022-12-26 21:16] VITALS: BMI 25.4
[2023-03-30 11:19] LABS: Prothrombin Time 23.5 SECONDS (10.1-12.7)
== END ==
PROVIDERS: PCP Family Medicine; Visit Provider Family Medicine
DX: I48.91 Unspecified atrial fibrillation (principal)
CPT/HCPCS: 85610

== ENCOUNTER → 2023-04-13 11:30 | Outpatient (ROUT) | payer MEDICARE, SELFPAY ==
[2022-12-26 21:16] VITALS: BMI 25.4
[2023-04-13 11:44] LABS: INR 1.4 (0.9-1.3); Prothrombin Time 16.4 SECONDS (10.1-12.7)
== END ==
PROVIDERS: PCP Family Medicine; Visit Provider Family Medicine
DX: I48.91 Unspecified atrial fibrillation (principal); Z79.01 Long term (current) use of anticoagulants
CPT/HCPCS: 85610

== ENCOUNTER → 2023-04-20 10:34 | Outpatient (ROUT) | payer MEDICARE, SELFPAY ==
[2022-12-26 21:16] VITALS: BMI 25.4
[2023-04-20 10:58] LABS: INR 2.6 (0.9-1.3); Prothrombin Time 30.2 SECONDS (10.1-12.7)
== END ==
PROVIDERS: PCP Family Medicine; Visit Provider Family Medicine
DX: I48.0 Paroxysmal atrial fibrillation (principal)
CPT/HCPCS: 85610

== ENCOUNTER 2023-04-21 19:11 | Emergency (ER) | payer MEDICARE, SELFPAY ==
[2022-12-26 21:16] VITALS: BMI 25.4
[2023-04-21 19:18] VITALS: BP 154/68; PULSE 75; RESP 20; TEMP 36.9; O2SAT 93; BMI 25.2
== END 2023-04-21 20:14 | disposition left against medical advice (07) ==
PROVIDERS: Emergency Provider Emergency Medicine; PCP Family Medicine
CPT/HCPCS: 99281

== ENCOUNTER → 2023-05-02 11:12 | Outpatient (ROUT) | payer MEDICARE, SELFPAY ==
[2022-12-26 21:16] VITALS: BMI 25.4
[2023-05-02 11:25] LABS: INR 2.6 (0.9-1.3); Prothrombin Time 29.6 SECONDS (10.1-12.7)
== END ==
PROVIDERS: PCP Family Medicine; Visit Provider Family Medicine
DX: Z79.01 Long term (current) use of anticoagulants (principal); I48.91 Unspecified atrial fibrillation
CPT/HCPCS: 85610

== ENCOUNTER → 2023-05-16 10:55 | Outpatient (ROUT) | payer MEDICARE, SELFPAY ==
[2022-12-26 21:16] VITALS: BMI 25.4
[2023-05-16 11:08] LABS: Prothrombin Time 23.6 SECONDS (10.1-12.7)
== END ==
PROVIDERS: PCP Family Medicine; Visit Provider Family Medicine
DX: Z79.01 Long term (current) use of anticoagulants (principal); I48.91 Unspecified atrial fibrillation
CPT/HCPCS: 85610

== ENCOUNTER → 2023-05-24 10:56 | Outpatient (ROUT) | payer MEDICARE, SELFPAY ==
[2022-12-26 21:16] VITALS: BMI 25.4
[2023-05-24 11:18] LABS: INR 2.4 (0.9-1.3); Prothrombin Time 27.6 SECONDS (10.1-12.7)
== END ==
PROVIDERS: PCP Family Medicine; Visit Provider Family Medicine
DX: I48.91 Unspecified atrial fibrillation (principal)
CPT/HCPCS: 85610

== ENCOUNTER → 2023-06-07 12:00 | Outpatient (ROUT) | payer MEDICARE, SELFPAY ==
[2022-12-26 21:16] VITALS: BMI 25.4
[2023-06-07 12:19] LABS: INR 2.3 (0.9-1.3); Prothrombin Time 26.2 SECONDS (10.1-12.7)
== END ==
PROVIDERS: PCP Family Medicine; Visit Provider Family Medicine
DX: I48.91 Unspecified atrial fibrillation (principal); Z79.01 Long term (current) use of anticoagulants
CPT/HCPCS: 85610

== ENCOUNTER → 2023-06-14 12:19 | Outpatient (ROUT) | payer MEDICARE, SELFPAY ==
[2022-12-26 21:16] VITALS: BMI 25.4
[2023-06-14 12:34] LABS: Prothrombin Time 34.5 SECONDS (10.1-12.7)
== END ==
PROVIDERS: PCP Family Medicine; Visit Provider Family Medicine
DX: Z79.01 Long term (current) use of anticoagulants (principal)
CPT/HCPCS: 85610

== ENCOUNTER → 2023-06-21 12:16 | Outpatient (ROUT) | payer MEDICARE, SELFPAY ==
[2022-12-26 21:16] VITALS: BMI 25.4
[2023-06-21 12:30] LABS: INR 2.4 (0.9-1.3); Prothrombin Time 27.8 SECONDS (10.1-12.7)
== END ==
PROVIDERS: PCP Family Medicine; Visit Provider Family Medicine
DX: I48.91 Unspecified atrial fibrillation (principal); Z79.01 Long term (current) use of anticoagulants
CPT/HCPCS: 85610

== ENCOUNTER → 2023-07-12 11:53 | Outpatient (ROUT) | payer MEDICARE, SELFPAY ==
[2022-12-26 21:16] VITALS: BMI 25.4
[2023-07-12 12:27] LABS: INR 1.2 (0.9-1.3); Prothrombin Time 13.9 SECONDS (9.4-12.5)
== END ==
PROVIDERS: PCP Family Medicine; Visit Provider Family Medicine
DX: Z79.01 Long term (current) use of anticoagulants (principal)
CPT/HCPCS: 85610

== ENCOUNTER → 2023-07-19 12:14 | Outpatient (ROUT) | payer MEDICARE, SELFPAY ==
[2022-12-26 21:16] VITALS: BMI 25.4
[2023-07-19 12:26] LABS: INR 1.7 (0.9-1.3); Prothrombin Time 19.7 SECONDS (9.4-12.5)
== END ==
PROVIDERS: PCP Family Medicine; Visit Provider Family Medicine
DX: I48.91 Unspecified atrial fibrillation (principal); Z79.01 Long term (current) use of anticoagulants
CPT/HCPCS: 85610

== ENCOUNTER → 2023-07-25 10:51 | Outpatient (ROUT) | payer MEDICARE, SELFPAY ==
[2022-12-26 21:16] VITALS: BMI 25.4
[2023-07-25 11:08] LABS: INR 2.3 (0.9-1.3); Prothrombin Time 27.1 SECONDS (9.4-12.5)
== END ==
PROVIDERS: PCP Family Medicine; Visit Provider Family Medicine
DX: Z79.01 Long term (current) use of anticoagulants (principal)
CPT/HCPCS: 85610

== ENCOUNTER → 2023-07-29 11:23 | Outpatient (ROUT) | payer MEDICARE, SELFPAY ==
[2022-12-26 21:16] VITALS: BMI 25.4
[2023-07-29 11:48] LABS: INR 1.5 (0.9-1.3); Prothrombin Time 17.8 SECONDS (9.4-12.5)
== END ==
PROVIDERS: PCP Family Medicine; Visit Provider Family Medicine
DX: Z79.01 Long term (current) use of anticoagulants (principal); I48.91 Unspecified atrial fibrillation
CPT/HCPCS: 85610

== ENCOUNTER → 2023-08-05 12:03 | Outpatient (ROUT) | payer MEDICARE, SELFPAY ==
[2022-12-26 21:16] VITALS: BMI 25.4
[2023-08-05 12:22] LABS: INR 2.2 (0.9-1.3); Prothrombin Time 25.2 SECONDS (9.4-12.5)
== END ==
PROVIDERS: PCP Family Medicine; Visit Provider Family Medicine
DX: Z79.01 Long term (current) use of anticoagulants (principal)
CPT/HCPCS: 85610

== ENCOUNTER → 2023-09-06 11:03 | Outpatient (ROUT) | payer MEDICARE, SELFPAY ==
[2022-12-26 21:16] VITALS: BMI 25.4
[2023-09-06 11:20] LABS: INR 1.8 (0.9-1.3); Prothrombin Time 20.3 SECONDS (9.4-12.5)
== END ==
PROVIDERS: PCP Family Medicine; Visit Provider Family Medicine
DX: I48.11 Longstanding persistent atrial fibrillation (principal); Z79.01 Long term (current) use of anticoagulants
CPT/HCPCS: 85610

== ENCOUNTER → 2023-09-13 10:56 | Outpatient (ROUT) | payer MEDICARE, SELFPAY ==
[2022-12-26 21:16] VITALS: BMI 25.4
[2023-09-13 11:22] LABS: INR 1.7 (0.9-1.3); Prothrombin Time 19.7 SECONDS (9.4-12.5)
== END ==
PROVIDERS: PCP Family Medicine; Visit Provider Family Medicine
DX: I48.11 Longstanding persistent atrial fibrillation (principal); Z79.01 Long term (current) use of anticoagulants
CPT/HCPCS: 85610

== ENCOUNTER → 2023-10-04 11:49 | Outpatient (ROUT) | payer MEDICARE, SELFPAY ==
[2022-12-26 21:16] VITALS: BMI 25.4
[2023-10-04 12:05] LABS: INR 2.6 (0.9-1.3); Prothrombin Time 29.8 SECONDS (9.4-12.5)
== END ==
PROVIDERS: PCP Family Medicine; Visit Provider Family Medicine
DX: I48.11 Longstanding persistent atrial fibrillation (principal); Z79.01 Long term (current) use of anticoagulants
CPT/HCPCS: 85610

== ENCOUNTER → 2023-10-18 11:56 | Outpatient (ROUT) | payer MEDICARE, SELFPAY ==
[2022-12-26 21:16] VITALS: BMI 25.4
[2023-10-18 12:09] LABS: INR 3.3 (0.9-1.3); Prothrombin Time 37.9 SECONDS (9.4-12.5)
== END ==
PROVIDERS: PCP Family Medicine; Visit Provider Family Medicine
DX: Z79.01 Long term (current) use of anticoagulants (principal); I48.11 Longstanding persistent atrial fibrillation
CPT/HCPCS: 85610

== ENCOUNTER → 2023-12-21 12:41 | Outpatient (ROUT) | payer MEDICARE, SELFPAY ==
[2022-12-26 21:16] VITALS: BMI 25.4
[2023-12-21 12:56] LABS: INR 2.7 (0.9-1.3); Prothrombin Time 30.9 SECONDS (9.4-12.5)
== END ==
PROVIDERS: PCP Family Medicine; Visit Provider Family Medicine
DX: I48.11 Longstanding persistent atrial fibrillation (principal); Z79.01 Long term (current) use of anticoagulants
CPT/HCPCS: 85610

== ENCOUNTER → 2024-05-03 10:18 | Outpatient (CLI) | payer MEDICARE, SELFPAY ==
[2022-12-26 21:16] VITALS: BMI 25.4
--- NOTE | 2024-05-03 10:20 | DI.RAD.S_ITS ---
PROCEDURE: XR DEXA AXIAL SKELETON INDICATIONS: OSTEOPOROSIS,POSTMENOPAUSAL COMPARISON: [facility], CR, XR DEXA AXIAL SKELETON, 06/28/2022, 11:17. [facility], CR, XR DEXA AXIAL SKELETON, 06/26/2020, 9:56. FINDINGS: Lumbar Spine: Bone mineral density is 0.837 g/cm2, T score -1.9. Prior DEXA was performed using dissimilar scan type or analysis method. Left Hip: Bone mineral density is 0.742 g/cm2, T score -1.6. Prior DEXA was performed using dissimilar scan type or analysis method. Left Femoral Neck: Bone mineral density 0.605 g/cm2, T score -2.2. Right Hip: Bone mineral density 0.784 g/cm2, T score -1.3. Prior DEXA was performed using dissimilar scan type or analysis method. Right Femoral Neck: Bone mineral density 0.657 g/cm2, T score -1.7. Fracture Risk Calculation (when applicable): 10-year fracture risk of a major osteoporotic fracture 30% and of a hip fracture 21% (assuming no prior fracture). (T score greater or equal to -1.0 to: NORMAL) (T score from -1.1 to -2.4: OSTEOPENIA) (T score less than or equal to -2.5: OSTEOPOROSIS) IMPRESSION: 1. By WHO criteria, patient has osteopenia. 2. 10-year fracture risk of a major osteoporotic fracture 30% and of a hip fracture 21%. Follow-up guidelines as follows: Osteoporosis: Consider a repeat DEXA and Vertebral Fracture Assessment (VFA) exam in 2 years or sooner if medically necessary, to reassess this patient's status. Osteopenia: Consider a repeat DEXA in 2-3 years to reassess this patient's status, or if there is a new clinical indication. Normal: Consider a repeat DEXA in 5 years or sooner, or if there is a new clinical indication. All treatment decisions require clinical judgment and consideration of individual patient factors, including patient preferences, comorbidities, previous drug use, risk factors not captured in the FRAX model (e.g., frailty, falls, vitamin D deficiency, increased bone turnover, interval significant decline in bone density ) and possible under- or over-estimation of fracture risk by FRAX. In addition, the NOF Guide recommends that FDA-approved medical therapies be considered in postmenopausal women and men age >= 50 years with a: * Hip or vertebral (clinical or morphometric) fracture * T-score of <=-2.5 at the spine or hip * Ten-year fracture probability by FRAX of >= 3% for hip fracture or >=20% for major osteoporotic fracture. People with diagnosed cases of osteoporosis or at high risk for fracture should have regular bone mineral density tests. For patients eligible for Medicare, routine testing is allowed once every 2 years. The testing frequency can be increased to one year for patients who have rapidly progressing disease, those who are receiving or discontinuing medical therapy to restore bone mass, or have additional risk factors. Approved by: Germán Perez M.D. on 05/03/2024 at 12:47
== END ==
PROVIDERS: PCP Family Medicine; Referring Provider Family Medicine; Visit Provider Family Medicine
DX: M81.0 Age-related osteoporosis without current pathological fracture (principal)
CPT/HCPCS: 77080

== ENCOUNTER → 2024-06-25 08:34 | Outpatient (CLI) | payer MEDICARE, SELFPAY ==
[2022-12-26 21:16] VITALS: BMI 25.4
--- NOTE | 2024-06-25 | DI.NM.S_ITS ---
PROCEDURE: NM UPTAKE AND SCAN RADIOPHARMACEUTICAL: 281 ?Ci I-123 sodium iodide by mouth. INDICATIONS: DECREASED TSH LEVEL, ELEV SERUM FREE T4 LEVEL TECHNIQUE: I-123 sodium iodide was administered orally. Anterior neck images were obtained, and iodine uptake by the thyroid gland calculated using director of instrumental music's software. COMPARISON: [facility], CT, CT CERVICAL SPINE WO CON, 06/26/2024, 9:07. FINDINGS: Morphology: Very little thyroid activity is seen. There is a focus of uptake seen within the left inferior thyroid Uptake: 6 hour thyroid uptake is 1%; normal ranges are from 6-18%. (The patient was unable to complete the 24 hour images.) IMPRESSION: Grossly reduced thyroid uptake, 1% at the 6 hour time point. Please consider follow-up thyroid ultrasound. Dictated by: Lew Corbin M.D. on 06/26/2024 at 9:16 Approved by: Lew Corbin M.D. on 06/26/2024 at 9:19
== END ==
PROVIDERS: PCP Family Medicine; Referring Provider Family Medicine; Visit Provider Family Medicine
DX: E07.9 Disorder of thyroid, unspecified (principal); R79.89 Other specified abnormal findings of blood chemistry
CPT/HCPCS: 78014; A9516

== ENCOUNTER 2024-06-26 08:50 | Inpatient (IN) | payer MEDICARE, SELFPAY ==
[2022-12-26 21:16] VITALS: BMI 25.4
[2024-06-26] VITALS (76 sets, daily range): BP systolic 136–245; BP diastolic 57–135; PULSE 53–145; RESP 12–36; TEMP 36.4; O2SAT 86–98; BMI 26.5; BMI 24.7
--- NOTE | 2024-06-26 | DI.RAD.S_ITS ---
PROCEDURE: XR SHOULDER RT MIN 2V INDICATIONS: FALL TECHNIQUE: To views of the shoulder were acquired. COMPARISON: None. FINDINGS: Bones: Comminuted, displaced and angulated fracture of the right humeral head neck Soft tissues: No suspicious soft tissue calcifications. IMPRESSION: Right humeral head and neck fracture Dictated by: Lanny Simpson MD, PhD on 06/26/2024 at 9:37 Approved by: Lanny Simpson MD, PhD on 06/26/2024 at 9:37
--- NOTE | 2024-06-26 08:54 | DI.RAD.S_ITS ---
PROCEDURE: XR HUMERUS RT 2V INDICATIONS: fall TECHNIQUE: 2 views of the humerus were acquired. COMPARISON: None. FINDINGS: Bones: Comminuted, displaced and angulated fracture of the right humeral head neck Soft tissues: No suspicious soft tissue calcifications. IMPRESSION: Right humeral head neck fracture. Dictated by: Lanny Simpson MD, PhD on 06/26/2024 at 9:30 Approved by: Lanny Simpson MD, PhD on 06/26/2024 at 9:31
--- NOTE | 2024-06-26 08:54 | DI.CT.S_ITS ---
PROCEDURE: CT HEAD/BRAIN WO CON INDICATIONS: fall on face, on eliquis TECHNIQUE: Noncontrast 4.5 mm thick angled axial sections acquired from the foramen magnum to the vertex, with coronal and sagittal reformats. For radiation dose reduction, the following was used: automated exposure control, adjustment of mA and/or kV according to patient size. COMPARISON: [facility], CT, CT HEAD/BRAIN WO CON, 12/26/2022, 15:52. FINDINGS: Image quality: Diagnostic. CSF spaces: Basal cisterns are patent. No extra-axial fluid collections. The ventricles are symmetric in size and shape. Brain: No intracranial bleeds or masses. There is cerebral volume loss for age, with resultant ventricular and sulcal prominence. There are periventricular and deep white matter chronic small vessel ischemic changes. There is intracranial internal carotid artery and vertebral artery atherosclerosis. Skull and face: Calvarium and visualized facial bones appear intact, without suspicious lesions. 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 Sinuses: Mucosal thickening in the left maxillary sinus. The mastoids are clear. IMPRESSION: No acute intracranial pathology. Dictated by: Lanny Simpson MD, PhD on 06/26/2024 at 9:42 Approved by: Lanny Simpson MD, PhD on 06/26/2024 at 9:45
--- NOTE | 2024-06-26 08:55 | DI.CT.S_ITS ---
PROCEDURE: CT CERVICAL SPINE WO CON INDICATIONS: fall TECHNIQUE: Noncontrast 3 mm thick sections acquired from the skull base to the T4 level. Sagittal and coronal reformats were then constructed. For radiation dose reduction, the following was used: automated exposure control, adjustment of mA and/or kV according to patient size. COMPARISON: None. FINDINGS: Image quality: Excellent. Bones: No fractures or dislocations. Visualized superior ribs are intact. Soft tissues: Prevertebral soft tissues are normal in thickness. No paravertebral hematomas. No apical pneumothoraces. 4.1 x 2.6 centimeter right thyroid nodule. IMPRESSION: No fracture. No acute osseous lesion. If symptoms and/or clinical suspicion for pathology persists, evaluation with MRI should be considered for further assessment. 4.1 x 2.6 centimeter right thyroid nodule. Recommend nonemergent thyroid ultrasound. Dictated by: Lanny Simpson MD, PhD on 06/26/2024 at 9:37 Approved by: Lanny Simpson MD, PhD on 06/26/2024 at 9:42
[2024-06-26] MEDS: OXYCODONE/ACETAMINOPHEN 5/325 TABLET 1 TAB PO ×2 (09:15→19:29)
--- NOTE | 2024-06-26 10:31 | ED.FALL ---
HPI - Fall General Chief Complaint: Fall Stated Complaint: fall on thinners Time Seen by Provider: 06/26/24 08:51 Mode of arrival: Wheelchair History of Present Illness HPI Narrative: 88-year-old woman with a history of atrial fibrillation, hypertension, hyperlipidemia who was in the hospital for a thyroid nuclear medicine study stumbled over her shoes walking down the hallway fell forward landing on her nose and catching herself with her right arm. She is complaining of midface pain and right arm pain. She was able to stand up enough to get into a wheelchair with the assistance. She has not complaining of back pain or lower extremity injuries. She notes no chest pain, shortness for breath in the recent fever coughs or chills. Related Data Home Medications Medication Instructions Recorded Confirmed MULTIVITAMIN (MULTI-VITAMINS) 1 tab PO Q DAY ##0 02/17/11 12/26/22 calcium carbonate 600 mg-vitamin 1 cap PO QDAY ##0 02/17/11 12/26/22 D3 10 mcg (400 unit) capsule (Calcium 600 with Vitamin D3) cholecalciferol (vitamin D3) 10 300 unit PO QDAY ##0 02/17/11 12/26/22 mcg (400 unit) capsule (Vitamin D3) omega 7-pta-brt-fish oil 1,000 mg 1,000 mg PO QDAY ##0 02/17/11 12/26/22 (120 mg-180 mg) capsule (Fish Oil) simvastatin 40 mg tablet (Zocor) 40 mg PO QPM ##0 02/17/11 12/26/22 losartan 50 mg tablet 50 mg PO BID ##0 05/16/17 06/26/24 melatonin 5 mg tablet 5 mg PO QPM ##0 05/16/17 12/26/22 vitamins A,C,M-ylwa-gccofb 4,296 1 cap PO QDAY ##0 05/16/17 12/26/22 mcg-226 mg-90 mg capsule (PreserVision AREDS) warfarin 5 mg tablet (Coumadin) See Rx Instructions .Route 05/16/17 12/26/22 .COMPLEX ##0 alendronate 70 mg tablet 70 mg PO QWEEK 12/26/22 12/26/22 amiodarone 200 mg tablet 200 mg PO DAILY 12/26/22 06/26/24 amlodipine 2.5 mg tablet 2.5 mg PO DAILY 12/26/22 12/26/22 budesonide 3 mg 6 mg PO DAILY 12/26/22 12/26/22 capsule,delayed,extended release metoprolol tartrate 25 mg tablet 25 mg PO BID 12/26/22 06/26/24 trazodone 100 mg tablet 100 mg PO QPM 12/26/22 12/26/22 furosemide 40 mg tablet (Lasix) 20 mg PO DAILY 06/26/24 06/26/24 Allergies Allergy/AdvReac Type Severity Reaction Status Date / Time amoxicillin [AMOXICILLIN] Allergy Intermediate Hives Verified 12/27/22 11:11 sulfamethoxazole Allergy Verified 02/14/21 19:51 [From ] trimethoprim [From ] Allergy Verified 02/14/21 19:51 Review of Systems Review of Systems Narrative: Pertinent positive and negative findings as per HPI Patient History Medical History CAD (coronary artery disease) Chronic anticoagulation Hyperlipidemia Hypertension Paroxysmal atrial fibrillation with rapid ventricular response Social History household members: spouse Smoking Status: Never smoker alcohol intake: never Smoking Status: Never smoker alcohol intake frequency: a few times a month Substance Use Type: does not use Exam Initial Vital Signs Initial Vital Signs: Vital Signs Temperature 97.6 F 06/26/24 08:50 Pulse Rate 78 06/26/24 08:50 Respiratory Rate 16 06/26/24 08:50 Blood Pressure 210/89 H 06/26/24 08:50 Pulse Oximetry 94 06/26/24 08:50 Oxygen Delivery Method Room Air 06/26/24 08:50 General: Frail, no acute distress, minor abrasion over the bridge of her nose that is bleeding slightly. HEENT: Moist mucous membranes, normal sclera with reactive pupils, Neck: No significant midline tenderness Respiratory: Lungs are clear to auscultation, no wheezing no rales no rhonchi. Full and symmetrical air movement Cardiac: Regular rate and rhythm no murmurs no bruits Abdomen: Soft, nontender, good bowel tones, no flank pain, Spine: No tenderness along thoracic or lumbar spine, no pelvic ring tenderness Skin: Warm and dry, no rashes Neurologic: Grossly neurologically intact with no obvious asymmetries or abnormalities Extremities: Right upper extremity is tender along the proximal humerus not specifically over the shoulder joint, no elbow or wrist pain. Left upper extremity and bilateral lower extremities are unremarkable Psych: Cooperative, appropriate insight and affect Procedures Orthopedic Fracture Reduction Right humerus: Time of procedure: 11:30 Time Out Performed: Yes Side: right Fracture Reduction Location: humerus Analgesia: procedural sedation Technique: direct manipulation and traction/counter-traction Post Reduction X-rays Demonstrate: acceptable reduction Post-reduction neuro exam: intact Post-reduction vascular exam: intact Splint Applied: Yes Procedural Sedation Time of procedure: 18:30 Consent signed: Yes Time out performed: Yes Indication: fracture/dislocation reduction ASA Class: III Mallampati Airway Classification: Class II Preparation: radiation monitor applied, pulse oximeter, capnometry used, supplemental O2 applied, suction/airway equipment at bedside and IV secured Ketamine dose (mg): 40 (.5mg dilaudid) Course Orders Ordered: ED Orders 06/26/24 10:51 Ct Shoulder right without con Stat XR shoulder RT 1V Stat 06/26/24 15:41 XR chest 1V Stat 06/26/24 16:09 BNP [NT-proBNP (BNP-Adult 18+)] Stat Complete Blood Count AUTO DIFF Stat Comprehensive Metabolic Panel Stat Trop I [Troponin I] Stat Hydromorphone HCl (Hydromorphone 0.5 Mg Inj) 0.5 mg IV Q15MIN PRN PRN Reason: Pain, Last Admin: 06/26/24 11:33 Dose: 0.5 mg Documented By: WILIAN Discontinued Medications Amiodarone HCl (Amiodarone 200 Mg Tablet) 200 mg PO NOW ONE Stop: 06/26/24 12:33 Last Admin: 06/26/24 12:43 Dose: 200 mg Documented By: WILIAN Furosemide (Furosemide 20 Mg Tablet) 20 mg PO NOW ONE Stop: 06/26/24 12:34 Last Admin: 06/26/24 12:43 Dose: 20 mg Documented By: WILIAN Ketamine HCl (Ketamine 50 Mg/5 Ml *Syringe*) 40 mg IV NOW ONE Stop: 06/26/24 10:45 Last Admin: 06/26/24 11:33 Dose: 40 mg Documented By: WILIAN Losartan Potassium (Losartan 50 Mg Tablet) 50 mg PO NOW ONE Stop: 06/26/24 12:34 Last Admin: 06/26/24 12:43 Dose: 50 mg Documented By: WILIAN Metoprolol Tartrate (Metoprolol Ir 25 Mg Tablet) 25 mg PO NOW ONE Stop: 06/26/24 12:34 Last Admin: 06/26/24 12:43 Dose: 25 mg Documented By: WILIAN Ondansetron HCl (Ondansetron 4 Mg/2 Ml Inj) 4 mg IV NOW ONE Stop: 06/26/24 12:50 Last Admin: 06/26/24 13:04 Dose: 4 mg Documented By: WILIAN Oxycodone/Acetaminophen (Oxycodone/Acetaminophen 5/325 Tablet) 1 tab PO NOW ONE Stop: 06/26/24 09:09 Last Admin: 06/26/24 09:15 Dose: 1 tab Documented By: WILIAN Vital Signs Vital signs: Vital Signs - 8 hr 06/26/24 10:15 06/26/24 10:15 06/26/24 10:30 Pulse Rate 67 66 Respiratory Rate 13 14 Blood Pressure 191/77 H Pulse Oximetry 93 92 Oxygen Delivery Method Oxygen Flow Rate 06/26/24 10:30 06/26/24 10:46 06/26/24 10:46 Pulse Rate 67 Respiratory Rate 15 Blood Pressure 169/72 H 193/81 H Pulse Oximetry 93 Oxygen Delivery Method Oxygen Flow Rate 06/26/24 11:00 06/26/24 11:00 06/26/24 11:07 Pulse Rate 70 Respiratory Rate 17 Blood Pressure 179/78 H 171/74 H Pulse Oximetry 91 Oxygen Delivery Method Nasal Cannula Oxygen Flow Rate 2 06/26/24 11:07 06/26/24 11:15 06/26/24 11:15 Pulse Rate 69 73 Respiratory Rate 15 13 Blood Pressure 188/79 H Pulse Oximetry 92 94 Oxygen Delivery Method Nasal Cannula Oxygen Flow Rate 2 06/26/24 11:20 06/26/24 11:20 06/26/24 11:20 Pulse Rate 88 74 Respiratory Rate 16 15 Blood Pressure 164/68 H 187/84 H Pulse Oximetry 91 94 Oxygen Delivery Method Oxygen Flow Rate 06/26/24 11:25 06/26/24 11:25 06/26/24 11:30 Pulse Rate 80 73 Respiratory Rate 18 33 H Blood Pressure 199/87 H Pulse Oximetry 94 92 Oxygen Delivery Method Nasal Cannula Oxygen Flow Rate 2 06/26/24 11:31 06/26/24 11:31 06/26/24 11:35 Pulse Rate 63 123 H Respiratory Rate 27 H 19 Blood Pressure 164/68 H Pulse Oximetry 92 93 Oxygen Delivery Method Oxygen Flow Rate 06/26/24 11:35 06/26/24 11:37 06/26/24 11:37 Pulse Rate 145 H Respiratory Rate 35 H Blood Pressure 245/135 H 242/118 H Pulse Oximetry 96 Oxygen Delivery Method Nasal Cannula Oxygen Flow Rate 2 06/26/24 11:40 06/26/24 11:40 06/26/24 11:45 Pulse Rate 138 H 99 H Respiratory Rate 18 Blood Pressure 236/107 H 196/113 H Pulse Oximetry 95 94 Oxygen Delivery Method Oxygen Flow Rate 06/26/24 11:45 06/26/24 11:45 06/26/24 11:50 Pulse Rate 103 H 80 Respiratory Rate 36 H 18 Blood Pressure 196/113 H 213/88 H Pulse Oximetry 93 Oxygen Delivery Method Nasal Cannula Oxygen Flow Rate 2 06/26/24 11:50 06/26/24 11:50 06/26/24 12:00 Pulse Rate 83 106 H Respiratory Rate 24 18 Blood Pressure 213/88 H 202/83 H Pulse Oximetry 97 94 Oxygen Delivery Method Oxygen Flow Rate 06/26/24 12:00 06/26/24 12:09 06/26/24 12:10 Pulse Rate 83 96 H 96 H Respiratory Rate 18 18 18 Blood Pressure 233/106 H Pulse Oximetry 94 92 92 Oxygen Delivery Method Nasal Cannula Oxygen Flow Rate 2 06/26/24 12:10 06/26/24 12:43 06/26/24 13:21 Pulse Rate 77 Respiratory Rate Blood Pressure 233/106 H 233/106 H 176/79 H Pulse Oximetry Oxygen Delivery Method Oxygen Flow Rate 06/26/24 13:25 06/26/24 13:25 06/26/24 13:30 Pulse Rate 75 72 Respiratory Rate 21 14 Blood Pressure 162/76 H Pulse Oximetry 96 93 Oxygen Delivery Method Oxygen Flow Rate 06/26/24 13:30 06/26/24 13:35 06/26/24 13:35 Pulse Rate 74 Respiratory Rate 23 Blood Pressure 165/77 H 148/68 H Pulse Oximetry 96 Oxygen Delivery Method Oxygen Flow Rate 06/26/24 13:40 06/26/24 13:40 06/26/24 13:46 Pulse Rate 74 Respiratory Rate 19 Blood Pressure 171/77 H 140/63 Pulse Oximetry 95 Oxygen Delivery Method Oxygen Flow Rate 06/26/24 13:46 06/26/24 13:50 06/26/24 13:50 Pulse Rate 73 71 Respiratory Rate 20 26 H Blood Pressure 163/76 H Pulse Oximetry 96 96 Oxygen Delivery Method Oxygen Flow Rate 06/26/24 13:56 06/26/24 13:56 06/26/24 14:00 Pulse Rate 94 H 81 Respiratory Rate 21 27 H Blood Pressure 214/125 H Pulse Oximetry 92 92 Oxygen Delivery Method Oxygen Flow Rate 06/26/24 14:01 06/26/24 14:01 06/26/24 14:05 Pulse Rate 80 75 Respiratory Rate 27 H 22 Blood Pressure 180/79 H Pulse Oximetry 92 96 Oxygen Delivery Method Oxygen Flow Rate 06/26/24 14:05 06/26/24 14:10 06/26/24 14:10 Pulse Rate 75 Respiratory Rate 27 H Blood Pressure 160/60 H 169/76 H Pulse Oximetry 96 Oxygen Delivery Method Oxygen Flow Rate 06/26/24 14:15 06/26/24 14:15 06/26/24 14:20 Pulse Rate 73 68 Respiratory Rate 22 14 Blood Pressure 146/57 H Pulse Oximetry 95 93 Oxygen Delivery Method Oxygen Flow Rate 06/26/24 14:20 06/26/24 14:25 06/26/24 14:25 Pulse Rate 70 Respiratory Rate 20 Blood Pressure 147/69 H 142/65 H Pulse Oximetry 91 Oxygen Delivery Method Oxygen Flow Rate 06/26/24 14:30 06/26/24 14:30 06/26/24 14:35 Pulse Rate 68 Respiratory Rate 20 Blood Pressure 142/68 H 143/67 H Pulse Oximetry 92 Oxygen Delivery Method Nasal Cannula Oxygen Flow Rate 06/26/24 14:35 06/26/24 14:40 06/26/24 14:40 Pulse Rate 66 67 Respiratory Rate 20 23 Blood Pressure 157/73 H Pulse Oximetry 95 94 Oxygen Delivery Method Nasal Cannula Oximask Oxygen Flow Rate 3 06/26/24 14:45 06/26/24 14:45 06/26/24 14:50 Pulse Rate 64 64 Respiratory Rate 17 14 Blood Pressure 143/63 H Pulse Oximetry 93 98 Oxygen Delivery Method Oxygen Flow Rate 06/26/24 14:50 06/26/24 14:53 06/26/24 14:55 Pulse Rate 65 Respiratory Rate 18 Blood Pressure 142/65 H Pulse Oximetry 97 96 Oxygen Delivery Method Nasal Cannula Oxygen Flow Rate 2 06/26/24 14:55 06/26/24 15:00 06/26/24 15:00 Pulse Rate 62 Respiratory Rate 12 Blood Pressure 151/72 H 138/65 Pulse Oximetry 92 Oxygen Delivery Method Oxygen Flow Rate 06/26/24 15:05 06/26/24 15:05 06/26/24 15:10 Pulse Rate 61 61 Respiratory Rate 12 15 Blood Pressure 136/64 Pulse Oximetry 88 L 86 L Oxygen Delivery Method Room Air Room Air Oxygen Flow Rate 06/26/24 15:10 06/26/24 15:15 06/26/24 15:15 Pulse Rate 62 Respiratory Rate 19 Blood Pressure 136/65 136/66 Pulse Oximetry 90 L Oxygen Delivery Method Oxygen Flow Rate 06/26/24 15:20 06/26/24 15:20 06/26/24 15:25 Pulse Rate 63 65 Respiratory Rate 17 22 Blood Pressure 136/67 Pulse Oximetry 90 L 88 L Oxygen Delivery Method Room Air Oxygen Flow Rate 0 06/26/24 15:25 06/26/24 15:48 06/26/24 16:00 Pulse Rate 67 62 Respiratory Rate Blood Pressure 141/72 H Pulse Oximetry 93 91 91 Oxygen Delivery Method Oximask Oximask Oximask Oxygen Flow Rate 3 3 3 06/26/24 16:30 06/26/24 17:00 Pulse Rate 61 60 Respiratory Rate 19 17 Blood Pressure Pulse Oximetry 96 95 Oxygen Delivery Method Oximask Oxygen Flow Rate 3 - Fall Lab Data 06/26/24 16:09 06/26/24 16:09 Labs: Lab Results 06/26/24 Range/Units 16:09 WBC 9.0 (4.5-11.0) X10^3/uL RBC 4.36 (4.0-5.2) X10^6/uL Hgb 13.7 (12.0-16.0) g/dL Hct 40.8 (36-46) % MCV 93.7 (80-100) fL MCH 31.4 (26-34) PG MCHC 33.4 (30-36) % RDW 13.8 (11.6-14.8) % Plt Count 156 (150-400) X10^3/uL Neut % (Auto) 67.8 (50-75) % Lymph % (Auto) 21.2 L (25-40) % [place] % (Auto) 10.4 (3-14) % Eos % (Auto) 0.1 L (2-4) % Baso % (Auto) 0.5 (0-2) % Neut # (Auto) 6100 (9857-7979) /uL Lymph # (Auto) 1900 (2985-2321) /uL [place] # (Auto) 900 (0-900) /uL Eos # (Auto) 0 (0-450) /uL Baso # (Auto) 0 (0-100) /uL Sodium 137 (137-145) mmol/L Potassium 3.5 (3.4-5.1) mmol/L Chloride 104 (98-107) mmol/L Carbon Dioxide 30 (22-32) mmol/L BUN 12 (7-17) mg/dL Creatinine 0.63 (0.52-1.04) mg/dL Estimated GFR > 60 (>60) mL/min BUN/Creatinine Ratio 19.0 (6-22) Glucose 190 H (80-110) mg/dL Calcium 8.8 (8.4-10.2) mg/dL Total Bilirubin 0.7 (0.2-1.3) mg/dL AST 27 (14-36) IU/L ALT 30 (<35) IU/L Alkaline Phosphatase 47 (38-126) U/L Total Protein 5.8 L (6.3-8.2) g/dL Albumin 3.5 (3.5-5.0) g/dL Globulin 2.3 (1.7-4.1) g/dL Albumin/Globulin Ratio 1.5 (1.0-2.8) MDM Narrative Medical decision making narrative: CC: Tripped over shoes, fell while in the hospital having a nuclear medicine thyroid steady Complicating co-morbidities: Anticoagulated 2nd toe atrial fibrillation, osteoporosis, hypertension Data collected from: patient, nursing staff assisting her from the hallway to the emergency department Medical records reviewed: Hospitalization in December of 2022 for COVID is reviewed Differential considered: Intracranial hemorrhage, facial fractures, humeral fractures Exam documented above, pertinent findings include: Patient is alert and appropriate. Abrasions over the nose but no midface tenderness. No significant bruising yet. Tender over the right upper extremity. No significant bruising yet. Remainder of exam is benign Lab Test results independently reviewed as above. Pertinent findings: Metabolic panel is unremarkable Initial troponin is 0.041 (no prior elevated troponins noted) BNP is 2 490 less than previous Independently reviewed EKG: Sinus rhythm at a rate of 65, no acute ischemic changes Imaging studies independently reviewed: CT scan of your cervical spine shows no fractures. She does have a right thyroid nodule which was part of the reason she was in the hospital And having a thyroid study done today CT scan of the head is unremarkable Humerus/shoulder x-rays show comminuted, displaced, angulated fracture of the right humeral head neck. Postreduction x-rays show better approximation of the humeral head and humeral neck Ct scan of the shoulder shows Bones: Comminuted, displaced fracture involving the right humeral head and neck. Humeral neck fracture is mildly angulated. Humeral head fracture involves the greater tuberosity and spares the lesser tuberosity. Chest x-ray is unremarkable Consultations: Care is reviewed with Dr. Quarles, orthopedics. Recommended reducing the arm and CT scan 3pm again reviewed care postreduction and post CT scan with Dr. Quarles. She recommended discharge home and will follow up with the patient later this week, patient needs to call to schedule an appointment Treatments: Sedation with small dose of ketamine and Dilaudid to reduce the arm and place a splint Re-evaluations: Patient's blood pressure and heart rate were increasing, she does not take her usual medications this morning all of her daytime morning medications have been administered Discussion: 88-year-old woman in the hospital for thyroid study fell and hit her head landed on her right arm. No intracranial hemorrhages however she has complex proximal humeral fracture on the right side. It was reduced in the emergency department and placed in a splint. Reviewed pre and post reduction with Dr. Quarles. Findings reviewed with the patient. She understands she will need to call Dr. Quarles's on office for follow up later this week 330pm at time of discharge, patient had still been on oxygen after her sedation. We turned the oxygen off and did an ambulatory trial and her oxygen saturations dropped down to 84% in were fairly consistent at 84%. This is a new finding, was not having difficulty with oxygenation previously. She was given her morning medications including her Lasix. She has not complaining of chest pain or other medical issues and medical workup was not done earlier. At this point will slow down, backup, re-evaluate the new hypoxia with lab work, chest x-ray and continue with oxygen supplementation at this time. New differential for her unexplained and new hypoxia includes congestive heart failure, NSTEMI, mild hypoxia after her sedation. Of note, during her sedation she was able to follow directions to take a deep breath through the majority of the sedation, it was quite light there was no evidence of aspiration or additional concerns with the sedation Patient leans on 3 L of nasal cannula oxygen. Continues to complain of no shortness a breath, chest pain. Moderate pain with the humeral fracture. Initial troponin is elevated at 0.041, slight elevated BNP with no clinical evidence of volume overload Patient has had brief episodes of atrial fibrillation throughout her stay. She rapidly converted back to sinus rhythm and is currently in sinus at a rate of 70 640pm care is reviewed with Dr. Puente, staff genetic counselor. His recommendation was to start heparin, hold her evening apixaban dose, continue other medications including gentle dose of IV Lasix, trend her troponins and do an echo tomorrow. We will discuss that with the patient. Her primary care physician is Dr. Palmer and it appears that Dr. Pack is on-call tonight Dr. Pack will admit the patient, patient and her daughters were updated, questions are answered. She will be admitted for further evaluation Critical Care Time Critical Care Time Critical Care Time: Yes Total Critical Care Time: 38 Attestation: Critical care time is separate from other billable procedures. There is a high probability of a significant, sudden or life-threatening deterioration that requires my full and direct attention, intervention and personal management. This critical care time includes consultation with family and other consulting doctors, review of records, and interpretation of data from labs, EKGs and imaging as well as managements of hypoxia with elevated troponin and IV heparin management Discharge Plan Departure Patient Disposition: Admitted as Observation Clinical Impression: Hypoxia, Elevated troponin, Paroxysmal A-fib Fall Qualifiers: Encounter type: initial encounter Qualified Code(s): W19.XXXA - Unspecified fall, initial encounter CHF (congestive heart failure) Qualifiers: Heart failure type: unspecified Heart failure chronicity: acute on chronic Qualified Code(s): I50.9 - Heart failure, unspecified Fracture of neck of humerus Qualifiers: Encounter type: initial encounter Fracture type: closed Laterality: right Qualified Code(s): S42.211A - Unspecified displaced fracture of surgical neck of right humerus, initial encounter for closed fracture
--- NOTE | 2024-06-26 10:51 | DI.CT.S_ITS ---
PROCEDURE: CT SHOULDER RIGHT WITHOUT CON INDICATIONS: Fall. Pain. TECHNIQUE: Noncontrast 0.75 mm thick sections acquired from the acromioclavicular joint to the inferior scapula, with coronal and sagittal reformatting. COMPARISON: Right shoulder x-ray series June 26, 2024. FINDINGS: Image quality: Excellent. Bones: Comminuted, displaced fracture involving the right humeral head and neck. Humeral neck fracture is mildly angulated. Humeral head fracture involves the greater tuberosity and spares the lesser tuberosity. Soft tissues: Small glenohumeral joint effusion. No significant soft tissue hematoma. IMPRESSION: Comminuted right humeral head neck fracture. Dictated by: Lanny Simpson MD, PhD on 06/26/2024 at 12:49 Approved by: Lanny Simpson MD, PhD on 06/26/2024 at 12:54
--- NOTE | 2024-06-26 10:51 | DI.RAD.S_ITS ---
PROCEDURE: XR SHOULDER RT 1V INDICATIONS: post reduction, we will call you when ready TECHNIQUE: 1 views of the shoulder were acquired. COMPARISON: , CR, XR SHOULDER RT MIN 2V, 06/26/2024, 8:46. FINDINGS: Bones: Status post close reduction of right humeral head and neck fracture. There is improved alignment following closed reduction. Soft tissues: No suspicious soft tissue calcifications. IMPRESSION: Improved alignment of right humeral head neck fracture following closed reduction. Dictated by: Lanny Simpson MD, PhD on 06/26/2024 at 11:56 Approved by: Lanny Simpson MD, PhD on 06/26/2024 at 11:56
[2024-06-26] MEDS: KETAMINE 50 MG/5 ML *SYRINGE 40 MG IV (11:33)
[2024-06-26] MEDS: HYDROMORPHONE 0.5 MG INJ IV (11:33)
[2024-06-26] MEDS: FUROSEMIDE 20 MG TABLET PO (12:43)
[2024-06-26] MEDS: AMIODARONE 200 MG TABLET PO (12:43)
[2024-06-26] MEDS: LOSARTAN 50 MG TABLET PO ×2 (12:43→23:24)
[2024-06-26] MEDS: METOPROLOL IR 25 MG TABLET PO ×2 (12:43→23:24)
[2024-06-26] MEDS: ONDANSETRON 4 MG/2 ML INJ IV (13:04)
--- NOTE | 2024-06-26 15:41 | DI.RAD.S_ITS ---
PROCEDURE: XR CHEST 1V INDICATIONS: hypoxia TECHNIQUE: One view of the chest was acquired. COMPARISON: [facility], CR, XR CHEST 1V, 12/26/2022, 16:26. FINDINGS: Surgical changes and devices: None. Lungs and pleura: Lungs are clear. No pleural effusions or pneumothorax. Mediastinum: Mediastinal contours appear normal. Heart size is enlarged. Bones and chest wall: No suspicious bony lesions. Overlying soft tissues appear unremarkable. IMPRESSION: No acute pulmonary process. Dictated by: Karen Chi M.D. on 06/26/2024 at 17:36 Approved by: Karen Chi M.D. on 06/26/2024 at 17:37
[2024-06-26 16:19] LABS: Add Manual Diff / Slide Review NO; Basophils Absolute Auto 0 /uL (0-100); Basophils Percent Auto 0.5 % (0-2); Eosinophils Absolute Auto 0 /uL (0-450); Eosinophils Percent Auto 0.1 % (2-4); Hematocrit 40.8 % (36-46); Hemoglobin 13.7 g/dL (12.0-16.0); Lymphocytes Absolute Auto 1900 /uL (1100-4500); Lymphocytes Percent Auto 21.2 % (25-40); Mean Corpuscular HGB Conc 33.4 % (30-36); Mean Corpuscular Hemoglobin 31.4 PG (26-34); Mean Corpuscular Volume 93.7 fL (80-100); Monocytes Absolute Auto 900 /uL (0-900); Monocytes Percent Auto 10.4 % (3-14); Neutrophils Absolute Auto 6100 /uL (1500-7000); Neutrophils Percent Auto 67.8 % (50-75); Platelet Count 156 X10^3/uL (150-400); Red Blood Cell Count 4.36 X10^6/uL (4.0-5.2); Red Cell Distribution Width 13.8 % (11.6-14.8)
[2024-06-26 16:31] LABS: Alanine Aminotransferase 30 IU/L (<35); Albumin 3.5 g/dL (3.5-5.0); Albumin Globulin Ratio 1.5 (1.0-2.8); Alkaline Phosphatase 47 U/L (38-126); Aspartate Aminotransferase 27 IU/L (14-36); Bilirubin Total 0.7 mg/dL (0.2-1.3); Blood Urea Nitrogen 12 mg/dL (7-17); Calcium 8.8 mg/dL (8.4-10.2); Carbon Dioxide 30 mmol/L (22-32); Chloride 104 mmol/L (98-107); Estimated Glomerular Filt Rate > 60 mL/min (>60); Globulin 2.3 g/dL (1.7-4.1); Glucose 190 mg/dL (80-110); HEMOLYSIS < 15 (0-50); Potassium 3.5 mmol/L (3.4-5.1); Sodium 137 mmol/L (137-145); Total Protein 5.8 g/dL (6.3-8.2)
[2024-06-26 18:08] LABS: NT-proBNP (BNP-Adult 18+) 2490 pg/mL (<450); Troponin I 0.041 ng/mL (0.01-0.034)
--- NOTE | 2024-06-26 18:30 | EKG_ITS ---
[address] [id number] [address] [address] Test Date: 2024-06-26 Pat Name: Maribel Lemons Department: [facility] Room: Gender: Female Home Hospice Aide: ALLI : 1935 Requested By: Order Number: [id number] Reading MD: Yaw Roberts MD Measurements Intervals [place] Rate: 65 P: 59 IL: 196 QRS: 3 QRSD: 92 T: 29 QT: 466 QTc: 484 Interpretive Statements Normal sinus rhythm Electronically Signed On 06-27-2024 10:00:09 PST by Yaw Roberts MD
[2024-06-26 19:15] LABS: Appearance Urine UA CLEAR; Bilirubin Urine UA NEGATIVE (NEGATIVE); Color Urine UA YELLOW; Glucose Urine UA TRACE g/dL (Negative); Ketones Urine UA TRACE (NEGATIVE); Leukocyte Esterase Urine UA NEGATIVE (NEGATIVE); Nitrite Urine UA NEGATIVE (Negative); Occult Blood Urine UA NEGATIVE (Negative); Protein Urine UA NEGATIVE (Negative); Specific Gravity Urine UA 1.025 (1.000-1.035); Urobilinogen Urine UA 0.2 E.U./dL (0.2)
--- NOTE | 2024-06-26 19:15 | PC.NURSE ---
ring removed with santana mistry and placed in cup and placed in pt's purse yellow colored metal with red stone
[2024-06-26] MEDS: HEPARIN 5,000 UNIT/ML VIAL 4000 UNIT IV (19:16)
[2024-06-26] MEDS: FUROSEMIDE 40 MG/4 ML VIAL IV (19:16)
[2024-06-26] MEDS: HEPARIN DRIP 25,000 UNIT/500 ML IV.SOLN 15.8 UNIT IV (19:17)
[2024-06-26 19:22] LABS: Urine Volume 10mL (spun)
[2024-06-26 19:23] LABS: Bacteria Urine Few (2-10); Culture Indicated Urine Cult Not Indicated; RBC Urine 0-1/HPF (0-5/HPF); Squamous Epithelial Cell Urine 1-5 /HPF (0-5/HPF); WBC Urine 1-5/HPF (0-5/HPF)
[2024-06-26 19:36] LABS: Troponin I 0.067 ng/mL (0.01-0.034)
[2024-06-26 20:12] LABS: PTT Partial Thromboplastin Tim 34 SECONDS (25.1-36.5)
[2024-06-26] MEDS: BACITRACIN OINT 0.9 GM PCKT 1 APPLIC TOP (20:53)
--- NOTE | 2024-06-26 20:54 | PC.NURSE ---
skin tears to bilateral knees cleaned with sterile water and bandaids applied
[2024-06-26 20:56] LABS: Troponin I 0.066 ng/mL (0.01-0.034)
[2024-06-26] MEDS: ATORVASTATIN 20 MG TABLET PO (23:24)
[2024-06-26] MEDS: TRAZODONE 50 MG TABLET 100 MG PO (23:25)
[2024-06-26] MEDS: MELATONIN 3 MG TABLET 6 MG PO (23:25)
[2024-06-26] MEDS: ACETAMINOPHEN 325 MG TABLET 650 MG PO (23:25)
[2024-06-27] VITALS: BP 107/53; PULSE 51; TEMP 36.4; O2SAT 97
[2024-06-27 01:55] LABS: PTT Partial Thromboplastin Tim 139 SECONDS (25.1-36.5)
[2024-06-27] MEDS: HYDROMORPHONE 0.5 MG INJ IV (02:08)
[2024-06-27] MEDS: ONDANSETRON 4 MG/2 ML INJ IV (02:08)
[2024-06-27 03:43] LABS: PTT Partial Thromboplastin Tim 96 SECONDS (25.1-36.5)
[2024-06-27 04:00] VITALS: BP 102/46; PULSE 51; RESP 12; TEMP 36.2; O2SAT 97
[2024-06-27 05:43] LABS: Hematocrit 36.6 % (36-46); Hemoglobin 12.5 g/dL (12.0-16.0); Platelet Count 150 X10^3/uL (150-400)
[2024-06-27 05:56] LABS: Alanine Aminotransferase 28 IU/L (<35); Albumin 3.2 g/dL (3.5-5.0); Albumin Globulin Ratio 1.3 (1.0-2.8); Alkaline Phosphatase 38 U/L (38-126); Aspartate Aminotransferase 24 IU/L (14-36); BUN Creatinine Ratio 18.1 (6-22); Bilirubin Total 0.7 mg/dL (0.2-1.3); Blood Urea Nitrogen 13 mg/dL (7-17); Calcium 8.3 mg/dL (8.4-10.2); Carbon Dioxide 34 mmol/L (22-32); Chloride 100 mmol/L (98-107); Estimated Glomerular Filt Rate > 60 mL/min (>60); Globulin 2.4 g/dL (1.7-4.1); Glucose 137 mg/dL (80-110); HEMOLYSIS < 15 (0-50); Potassium 3.4 mmol/L (3.4-5.1); Sodium 136 mmol/L (137-145); Total Protein 5.6 g/dL (6.3-8.2)
[2024-06-27 07:25] VITALS: BP 125/56; PULSE 61; RESP 15; TEMP 36.4; O2SAT 97
--- NOTE | 2024-06-27 07:36 | DI.ECHO.S_ITS ---
[facility] : : [id number] : : [place] : : [id number] : : Phone: [phone] Echocardiogram Report + + :Name: EDWARD MONREAL Study Date: 06/27/2024 Height: 62 in : :Hospital ReadingLocation: Weight: 135 lb : : Gender: Female BSA: 1.6 m2 : :: 1935 Age: 88 yrs BP: 138/54 mmHg: :Reason For Study: SHORTNESS OF BREATH, AFIB : :Ordering Physician: BLANCA, : :LAUREN Performed By: Maru Romo : :Referring: LAUREN ANSARI : + + Interpretation Summary The ejection fraction is estimated to be 55-60%. There is mild concentric left ventricular hypertrophy. There is borderline mitral valve prolapse. There is mild mitral regurgitation. The aortic valve is slightly calcified. There is mild aortic regurgitation. There is mild tricuspid regurgitation. Right ventricular systolic pressure is estimated to be 36 mmHg plus the clinically estimated CVP which cannot be estimated on this exam. Procedure: A two-dimensional transthoracic echocardiogram with color flow and Doppler was performed. The study quality was technically difficult. Comparison is made with the echocardiogram of 02/22/2022. Patient was scanned in a supine postion with arm sling due to recently breaking shoulder from recent fall. The patient was in sinus rhythm with heart rates between 59-66 bpm during the exam. Left Ventricle: The left ventricle is normal in size. Proximal septal thickening is noted. There is mild concentric left ventricular hypertrophy. The ejection fraction is estimated to be 55-60%. Left ventricular wall motion is normal. Right Ventricle: The right ventricle is normal in size and function. Atria: The left atrial size is normal. The right atrium is borderline dilated. There is no Doppler evidence for an interatrial shunt. Mitral Valve: The mitral valve leaflets appear mildly thickened, but open well. There is moderate mitral annular calcification. There is borderline mitral valve prolapse. There is mild mitral regurgitation. The mitral regurgitant jet is eccentrically directed. Aortic Valve: The aortic valve is trileaflet. The aortic valve opens well. The aortic valve is slightly calcified. There is no aortic valve stenosis. There is mild aortic regurgitation. Tricuspid Valve: The tricuspid valve is normal in structure and function. There is mild tricuspid regurgitation. Right ventricular systolic pressure is estimated to be 36 mmHg plus the clinically estimated CVP which cannot be estimated on this exam. Pulmonic Valve: The pulmonic valve leaflets are thin and pliable; valve motion is normal. There is mild pulmonic regurgitation. Great Vessels: The aortic root is normal size. The dimensions of the ascending aorta are normal. The inferior vena cava was not visualized. Pericardium/ Pleura There is no pericardial effusion. There is no pleural effusion. MMode/2D Measurements & Calculations LVIDd: 4.7 cm LVOT diam: 2.0 cm LVIDs: 3.4 cm Ao root diam: 3.3 cm FS: 29.2 % asc Aorta Diam: 3.1 cm EPSS: 0.78 cm Ao Arch Diam (Prox Trans): 3.0 cm IVSd: 1.1 cm LVPWd: 1.2 cm LV jimenez. diameter/BSA (cm/m^2): 2.9 LV sys. diameter/BSA (cm/m^2): 2.1 LA A2 area: 16.3 cm2 RA long axis: 5.8 cm LA A4 area: 21.0 cm2 RA area: 19.8 cm2 LA length (vol): 5.5 cm RA vol: 57.2 ml LA vol: 52.4 ml RA : 35.4 ml/m2 LA vol index: 32.4 ml/m2 RVD1 (basal): 3.8 cm TAPSE: 1.7 cm Doppler Measurements & Calculations Ao V2 max: 163.6 cm/sec LVOT Max Steve: 116.5 cm/sec Ao V2 mean: 108.4 cm/sec LV V1 max P.4 mmHg Ao max P.7 mmHg LV V1 VTI: 22.8 cm Ao mean P.3 mmHg JAMES(I,D): 2.2 cm2 Ao V2 VTI: 31.4 cm JAMES(V,D): 2.2 cm2 sev ratio: 0.73 JAMES indexed to BSA (cm^2/m^2): 1.4 MV E max steve: 75.5 cm/sec TR max steve: 298.0 cm/sec MV A max steve: 100.1 cm/sec TR max P.5 mmHg MV E/A: 0.75 PA V2 max: 100.7 cm/sec Med Peak E' Steve: 2.9 cm/sec PA V2 mean: 68.3 cm/sec E/E' med: 26.0 PA mean P.0 mmHg Lat Peak E' Steve: 5.1 cm/sec PA pr(Accel): 46.5 mmHg E/E' lat: 14.8 E/e' average: 20.4 MV dec time: 0.25 sec SV(LVOT): 68.8 ml Reading Physician:01:26 PM
--- NOTE | 2024-06-27 07:46 | PC.NURSE ---
Pt came up from ER with heparin drip running at 12 u/kg/hr, 4000 u bolus already given (see MAR) Repeat PTT reported at 0113 @ 139 sec. This seemed too high, and this RN assessed the draw site/method, finding that phlebotomy had drawn on the same side as the infusion w/o having nursing pause infusion. This RN paused the infusion for 15 min, redrew, resumed drip, and sent to lab ~0200, but lab rejected tube as overfilled. Lab instructed to request RN pause drip before drawing, as opposite limb is unavailable to draw on. Again, this RN paused the drip for 15 min, valery, and sent top lab, which resulted at 0326 @ 96 sec. From there, the administration flowsheet protocol was followed, pausing the infusion for 30min ([id number] and resuming at -2 u/kg/hr (10 u/kg/hr) (see MAR)
[2024-06-27] MEDS: AMLODIPINE 5 MG TABLET 2.5 MG PO (09:27)
[2024-06-27] MEDS: MULTIVITAMIN 1 TABLET 1 TAB PO (09:27)
[2024-06-27] MEDS: METOPROLOL IR 25 MG TABLET PO (09:28)
[2024-06-27] MEDS: BUDESONIDE 3 MG CAP 6 MG PO (09:28)
[2024-06-27] MEDS: AMIODARONE 200 MG TABLET PO (09:28)
[2024-06-27] MEDS: LOSARTAN 50 MG TABLET PO (09:28)
[2024-06-27 11:19] LABS: PTT Partial Thromboplastin Tim 60 SECONDS (25.1-36.5)
--- NOTE | 2024-06-27 11:23 | CM.DANOTE ---
Addendum entered by JULIUS Whitfield 06/27/24 11:59: LM for Subha Parry, [facility] P [phone], asking for help to arrange meals on wheels for patient and sp. Requested CB to discuss. Original Note: Initial DCP Assessment Note Pt is an 88 yo female, resident of [place], was attending an outpatient appt and fell, with subsequent shoulder fx. According to record review, Ortho has been consulted, it remains unclear whether patient is a surgical candidate for repair. Fx has been set with closed reduction; Code was called during conscience sedation for this closed reduction. Patient receiving work up and close heart monitoring. PCP: Navid Hubbard Payer: Elpidio FERRARI Met w/patient to introduce self and role. Patient lives with spouse in their RV which [facility] at [facility]. Space G 16. Patient reports living independently with spouse and that they have wider walker steps into their RV. Patient anticipates discharging home with her spouse who can assist her as needed. Additionally, patient has two daughters that live locally and can assist as needed. Patient discussed meals on wheels for she and her spouse; this BEVELER offered to make this referral and patient appreciative. No barriers identified at this time to patient's safe discharge home w/family to assist; PT has been ordered to assist with dispo recommendations. CM team will plan to follow clinical course closely. JULIUS Frias Discharge Planning/Care Management Document 06/27/24 11:18 JEREMI (Rec: 06/27/24 11:22 JEREMI [id number]) Discharge Planning Assessment Assigned Belt Fixer JULIUS Demarco DPOA/Assigned Designee Name Jesus Alberto Contact Information Debbie Gaffney (dtr)[phone] Jesus [phone] Advance Directives? Yes: POLST Advance Directives on File Yes: POLST ON FILE History Provided By Patient,Medical Record Prior Living Arrangements RV Household Members spouse Type of transporation used prior to Relies on Others admit Independent with ADL's Yes Is patient alert and oriented? Yes Barriers to Discharge Yes Comment Patient remains on oxygen, not medically stable for discharge Discharge Plan Home Transportation Arrangement Family Referrals Initiated None needed
[2024-06-27 12:01] VITALS: BP 138/54; PULSE 64; RESP 16; TEMP 36.8; O2SAT 89
[2024-06-27 12:15] LABS: NT-proBNP (BNP-Adult 18+) 1440 pg/mL (<450)
[2024-06-27 12:18] LABS: Troponin I 0.037 ng/mL (0.01-0.034)
[2024-06-27] MEDS: ACETAMINOPHEN 325 MG TABLET 650 MG PO ×2 (12:24→22:23)
[2024-06-27] MEDS: POTASSIUM CHLORIDE 20 MEQ TAB PO (12:24)
--- NOTE | 2024-06-27 12:28 | PC.NURSE ---
Patient declined US of thyroid. Dr. Palmer made aware.
--- NOTE | 2024-06-27 12:51 | CM.DPNOTE ---
Addendum entered by JULIUS Whitfield 06/29/24 13:55: ADD: Meals on wheels alerted that patient discharged home 06/28. Original Note: ÓSCAR Mahoney [facility] Sub[facility]meals on wheels P [phone]; patient and spouse had received meals on wheels at their RV a few years ago. Subha will reinstate their meals- M-F, frozen meals for the delivered Tuesday. Subha requests information on date of discharge when known and patient's mailing address. JEREMI
--- NOTE | 2024-06-27 14:20 | PT.IIE ---
Medical History (Last Reviewed 12/26/22 @ 18:45 by Alessandro Pack MD) CAD (coronary artery disease) Chronic anticoagulation Hyperlipidemia Hypertension Paroxysmal atrial fibrillation with rapid ventricular response Physical Therapy Inpatient Evaluation/Re-Eval M1 PT/OT-IP Prior Functional Status Start: 06/27/24 16:59 Freq: NEEDED Status: Active Protocol: Document 06/27/24 14:20 AB (Rec: 06/27/24 17:21 AB [id number]) Medical Review Prior Functional Status Medical History Reviewed Yes Communication able to make needs known Mobility and Gait pt stated that she was modified independent with all mobilities and ambulation without AD but stated that she was unsteady Activities of Daily Living and IADL's per OT note: Completely independent with all ADL and IADL needs. Prior Functional Level (Other details) Pt's spouse has back issues and not able to asssist her much. Pt's daughters lives locally and can check on her daily. Social History Household Members spouse Living Arrangements RV Number of Floors (Floors) One Floor Number of Stairs To Enter/Railing? 5 platform steps to enter Home Environment High Toilet,Walk in Shower, Built-In Shower Seat Home Equipment Straight Cane,Shower Seat without Backrest,Hand Held Shower,Grab Bars In Shower Additional Social History Comment Pt has an electric recliner that she can sleep on if needed spouse has limited abilities to assist pt due to his back issue M2 PT-IP Current Condition Start: 06/27/24 16:59 Freq: NEEDED Status: Active Protocol: Document 06/27/24 14:20 AB (Rec: 06/27/24 17:21 AB [id number]) Physical Therapy Current Condition Current Condition Evaluation Date 06/27/24 Treatment Diagnosis s/p fall; R humerus fx; difficulty in walking Onset Date 06/26/24 M3 PT-IP Subjective Start: 06/27/24 16:59 Freq: NEEDED Status: Active Protocol: Document 06/27/24 14:20 AB (Rec: 06/27/24 17:21 AB [id number]) Subjective Physical Therapy Visit Type Type Initial Evaluation Visit Start Time 14:20 Visit Stop Time 15:00 Number of CUT OFF MACHINE HELPER Visits 0 Physical Therapy Visit Comments Patient Comments agreeable to do PT Therapy Pain Assessment Pain Present Pain Present Denied Pain M4 PT-IP Mobility and Gait Start: 06/27/24 16:59 Freq: NEEDED Status: Active Protocol: Document 06/27/24 14:20 AB (Rec: 06/27/24 17:21 AB [id number]) PT-Bed Mobility Assessment Supine to Sit Supine to Sit Maximum Assistance Sit to Supine Sit to Supine Standby Assistance PT-Transfer Assessment Sit to and From Stand Sit to and from Stand Minimal Assistance,1 Person Assistance,Use of Upper Extremities Equipment Transfer Assistive Device None,Gait Belt,Straight Cane, Small Based Quad Cane Orthotic/Prosthetic Devices or Brace: Yes Transfers Transfer Destination Chair Transfer Technique Stand Step Pivot Transfer Ability Level of Assist Minimal Assistance,Moderate Assistance,1 Person Assistance ,Use of Upper Extremities Comments Mobility Comments pt standing up and was about to walk with NAC. PT took over pt care. pt sat on EOB and agreed to do PT. obtained PLOF and home set up. pt with R arm split and sling on. BP : 112/47. O2 sat: 90%-95%. educated pt on NWB on RUE. pt completed sit to supine SBA. completed supine to sit max A and max cues. pt completed sit to stand min A and cues. ambulated without AD min A and cues. presents with unsteady gait and increase LOB to the R and posteriorly. pt sat on chair. educated pt on increasing COG awareness and weight shifting. pt ambulated again ~ 15 ft with slightly steadier gait but continues to need min A and cues. educated pt on use of SPC. ambulated in room using SPC min A ~ 20 ft. pt with difficulty with coordination of cane and LE. continues to have unsteady gait. Assessed ambulation using SBQC and pt requiring min A and cues. pt with LOB with turning requiring mod A and cues. pt stated that she is feeling tired and needs to sit down c/ o slight dizziness. pt sat on the chair. BP checked: 106/ 46. O2 sat initial reading 86% . cued for deep breathing and increased to 92% in ~ 10 sec. positioned pt on the chair and agreed to sit up on the chair. informed pt regarding current assistance needed and agreed to go to SNF . Left pt with OT. Gait Assessment Gait Gait Assistance Required: Minimum Assistance,Moderate Assistance Distance (Feet) 25 Able to Maintain Weight Bearing Status Yes During Gait Assistive Devices Assistive Device None,Gait Belt,Straight Cane, Small Based Quad Cane Gait Deviations General Gait Pattern Antalgic,Ataxic,Decreased Stride Length,Decreased Feet Clearance Factors Limiting Gait Function Factors Limiting Gait Function Decreased Activity Tolerance, Decreased Strength,Limited Range of Motion,Poor Balance, Poor Safety Awareness PT-Balance Assessment Sitting Balance and Reactions Static Sitting Balance Ability Good Dynamic Sitting Balance Ability Good Standing Balance and Reactions Static Standing Balance Ability Fair Dynamic Standing Balance Ability Poor Device Used without AD M5 PT-IP Objective Assessments Start: 06/27/24 16:59 Freq: NEEDED Status: Active Protocol: Document 06/27/24 14:20 AB (Rec: 06/27/24 17:21 AB [id number]) Orientation Orientation/Cognition Level of Alertness Alert Orientation Name,Place,Situation Language Function Ability No Deficits Noted Safety Awareness Decreased Safety Awareness Memory Description No Deficits Noted Gross Range of Motion Lower Extremity ROM Assessment Within Functional Limits Strength Lower Extremity Strength Assessment Within Functional Limits Coordination Assessment Gross Coordination Gross Coordination WNL Muscle Tone Muscle Tone WNL Yes M6 PT-IP Treatment Start: 06/27/24 16:59 Freq: NEEDED Status: Active Protocol: Document 06/27/24 14:20 AB (Rec: 06/27/24 17:21 AB [id number]) Physical Therapy Treatment Education Education Provided Precautions,Weight Bearing Status,Safety M7 PT-IP Assessment and Plan Start: 06/27/24 16:59 Freq: NEEDED Status: Active Protocol: Document 06/27/24 14:20 AB (Rec: 06/27/24 17:21 AB [id number]) PT Summary Assessment and Plan Potential Rehabilitation Potential Fair Status of Condition at Evaluation Evolving Summary Impairments Pain,ROM,Strength,Balance, Coordination,Sensation,Tone, Cognition,Bed Mobility, Transfers,Gait,Activity Tolerance Assessment Summary pt is an 88 y/o F s/p fall. pt sustain a R humerus fx and currently with a splint/ softcast and sling on . pt is NWB on RUE. pt requiring max A for supine to sit, min A for transfers and min to mod A for ambulation using a quad cane. Assessed ambulation without AD and SPC. pt unsteady with ambulation and quad cane deemed safest AD at this time but will require more training for cane use. will continue to assess safety . pt will need 24/ assistance at this time and will benefit from SNF rehab. Goals Bed Mobility Goal Minimal Assistance Transfer Goal Standby Assistance,Cane Gait Goal Standby Assistance,Cane Gait Distance 150 Other Goals improve bed mobility, transfers, ambulation using LRAD ~ 200 ft mod I up/down 5 platform steps using AD SBA Days to Meet Goals 10 Frequency of Treatment Frequency Of Treatment Once a Day Treatment Plan Physical Therapy Treatment Plan Bed Mobility Training,Transfer Training,Gait Training, Therapeutic Exercise,Balance Retraining,Discharge Planning, Hot or Cold Pack,Neuromuscular Re-ed,Coordination Retraining ,Manual Therapy Precautions Shoulder Precautions Sling Weight Bearing Status Weight Bearing Status Non-Weight Bearing Allowed Weight Bearing Amount (enter % NWB on RUE or #) (%) Recommendations To Nursing Amount of Assist Needed 1 Person Assist Discharge Recommendations PT Discharge Recommendations SNF Rehab Transportation Needs at Discharge Private Vehicle,Wheelchair/ Cabulance
--- NOTE | 2024-06-27 14:20 | PT.IIE ---
Medical History (Last Reviewed 12/26/22 @ 18:45 by Alessandro Pack MD) CAD (coronary artery disease) Chronic anticoagulation Hyperlipidemia Hypertension Paroxysmal atrial fibrillation with rapid ventricular response Physical Therapy Inpatient Evaluation/Re-Eval M1 PT/OT-IP Prior Functional Status Start: 06/27/24 16:59 Freq: NEEDED Status: Active Protocol: Document 06/27/24 14:20 AB (Rec: 06/27/24 17:21 AB [id number]) Medical Review Prior Functional Status Medical History Reviewed Yes Communication able to make needs known Mobility and Gait pt stated that she was modified independent with all mobilities and ambulation without AD but stated that she was unsteady Activities of Daily Living and IADL's per OT note: Completely independent with all ADL and IADL needs. Prior Functional Level (Other details) Pt's spouse has back issues and not able to asssist her much. Pt's daughters lives locally and can check on her daily. Social History Household Members spouse Living Arrangements RV Number of Floors (Floors) One Floor Number of Stairs To Enter/Railing? 5 platform steps to enter Home Environment High Toilet,Walk in Shower, Built-In Shower Seat Home Equipment Straight Cane,Shower Seat without Backrest,Hand Held Shower,Grab Bars In Shower Additional Social History Comment Pt has an electric recliner that she can sleep on if needed spouse has limited abilities to assist pt due to his back issue M2 PT-IP Current Condition Start: 06/27/24 16:59 Freq: NEEDED Status: Active Protocol: Document 06/27/24 14:20 AB (Rec: 06/27/24 17:21 AB [id number]) Physical Therapy Current Condition Current Condition Evaluation Date 06/27/24 Treatment Diagnosis s/p fall; R humerus fx; difficulty in walking Onset Date 06/26/24 M3 PT-IP Subjective Start: 06/27/24 16:59 Freq: NEEDED Status: Active Protocol: Document 06/27/24 14:20 AB (Rec: 06/27/24 17:21 AB [id number]) Subjective Physical Therapy Visit Type Type Initial Evaluation Visit Start Time 14:20 Visit Stop Time 15:00 Number of MEDICAL/SURGERY REGISTERED NURSE Visits 0 Physical Therapy Visit Comments Patient Comments agreeable to do PT Therapy Pain Assessment Pain Present Pain Present Denied Pain M4 PT-IP Mobility and Gait Start: 06/27/24 16:59 Freq: NEEDED Status: Active Protocol: Document 06/27/24 14:20 AB (Rec: 06/27/24 17:21 AB [id number]) PT-Bed Mobility Assessment Supine to Sit Supine to Sit Maximum Assistance Sit to Supine Sit to Supine Standby Assistance PT-Transfer Assessment Sit to and From Stand Sit to and from Stand Minimal Assistance,1 Person Assistance,Use of Upper Extremities Equipment Transfer Assistive Device None,Gait Belt,Straight Cane, Small Based Quad Cane Orthotic/Prosthetic Devices or Brace: Yes Transfers Transfer Destination Chair Transfer Technique Stand Step Pivot Transfer Ability Level of Assist Minimal Assistance,Moderate Assistance,1 Person Assistance ,Use of Upper Extremities Comments Mobility Comments pt standing up and was about to walk with NAC. PT took over pt care. pt sat on EOB and agreed to do PT. obtained PLOF and home set up. pt with R arm split and sling on. BP : 112/47. educated pt on NWB on RUE. pt completed sit to supine SBA. completed supine to sit max A and max cues. pt completed sit to stand min A and cues. ambulated without AD min A and cues. presents with unsteady gait and increase LOB to the R and posteriorly. pt sat on chair. educated pt on increasing COG awareness and weight shifting. pt ambulated again ~ 15 ft with slightly steadier gait but continues to need min A and cues. educated pt on use of SPC. ambulated in room using SPC min A ~ 20 ft. pt with difficulty with coordination of cane and LE. continues to have unsteady gait. Assessed ambulation using SBQC and pt requiring min A and cues. pt with LOB with turning requiring mod A and cues. pt stated that she is feeling tired and needs to sit down. pt sat on the chair. BP checked: 106/46. informed pt regarding current assistance needed and agreed to go to SNF . Left pt with OT. Gait Assessment Gait Gait Assistance Required: Minimum Assistance,Moderate Assistance Distance (Feet) 25 Able to Maintain Weight Bearing Status Yes During Gait Assistive Devices Assistive Device None,Gait Belt,Straight Cane, Small Based Quad Cane Gait Deviations General Gait Pattern Antalgic,Ataxic,Decreased Stride Length,Decreased Feet Clearance Factors Limiting Gait Function Factors Limiting Gait Function Decreased Activity Tolerance, Decreased Strength,Limited Range of Motion,Poor Balance, Poor Safety Awareness PT-Balance Assessment Sitting Balance and Reactions Static Sitting Balance Ability Good Dynamic Sitting Balance Ability Good Standing Balance and Reactions Static Standing Balance Ability Fair Dynamic Standing Balance Ability Poor Device Used without AD M5 PT-IP Objective Assessments Start: 06/27/24 16:59 Freq: NEEDED Status: Active Protocol: Document 06/27/24 14:20 AB (Rec: 06/27/24 17:21 AB [id number]) Orientation Orientation/Cognition Level of Alertness Alert Orientation Name,Place,Situation Language Function Ability No Deficits Noted Safety Awareness Decreased Safety Awareness Memory Description No Deficits Noted Gross Range of Motion Lower Extremity ROM Assessment Within Functional Limits Strength Lower Extremity Strength Assessment Within Functional Limits Coordination Assessment Gross Coordination Gross Coordination WNL Muscle Tone Muscle Tone WNL Yes M6 PT-IP Treatment Start: 06/27/24 16:59 Freq: NEEDED Status: Active Protocol: Document 06/27/24 14:20 AB (Rec: 06/27/24 17:21 AB [id number]) Physical Therapy Treatment Education Education Provided Precautions,Weight Bearing Status,Safety M7 PT-IP Assessment and Plan Start: 06/27/24 16:59 Freq: NEEDED Status: Active Protocol: Document 06/27/24 14:20 AB (Rec: 06/27/24 17:21 AB [id number]) PT Summary Assessment and Plan Potential Rehabilitation Potential Fair Status of Condition at Evaluation Evolving Summary Impairments Pain,ROM,Strength,Balance, Coordination,Sensation,Tone, Cognition,Bed Mobility, Transfers,Gait,Activity Tolerance Assessment Summary pt is an 88 y/o F s/p fall. pt sustain a R humerus fx and currently with a splint/ softcast and sling on . pt is NWB on RUE. pt requiring max A for supine to sit, min A for transfers and min to mod A for ambulation using a quad cane. Assessed ambulation without AD and SPC. pt unsteady with ambulation and quad cane deemed safest AD at this time but will require more training for cane use. will continue to assess safety . pt will need 24/7 assistance at this time and will benefit from SNF rehab. Goals Bed Mobility Goal Minimal Assistance Transfer Goal Standby Assistance,Cane Gait Goal Standby Assistance,Cane Gait Distance 150 Other Goals improve bed mobility, transfers, ambulation using LRAD ~ 200 ft mod I up/down 5 platform steps using AD SBA Days to Meet Goals 10 Frequency of Treatment Frequency Of Treatment Once a Day Treatment Plan Physical Therapy Treatment Plan Bed Mobility Training,Transfer Training,Gait Training, Therapeutic Exercise,Balance Retraining,Discharge Planning, Hot or Cold Pack,Neuromuscular Re-ed,Coordination Retraining ,Manual Therapy Precautions Shoulder Precautions Sling Weight Bearing Status Weight Bearing Status Non-Weight Bearing Allowed Weight Bearing Amount (enter % NWB on RUE or #) (%) Recommendations To Nursing Amount of Assist Needed 1 Person Assist Discharge Recommendations PT Discharge Recommendations SNF Rehab Transportation Needs at Discharge Private Vehicle,Wheelchair/ Cabulance
--- NOTE | 2024-06-27 15:39 | OT.IP.EVAL ---
Past Medical History (Last Reviewed 12/26/22 @ 18:45 by Alessandro Pack MD) CAD (coronary artery disease) Chronic anticoagulation Hyperlipidemia Hypertension Paroxysmal atrial fibrillation with rapid ventricular response Occupational Therapy Inpatient Evaluation/Re-Eval M1 PT/OT-IP Prior Functional Status Start: 06/27/24 15:09 Freq: NEEDED Status: Active Protocol: Document 06/27/24 15:18 [facility] (Rec: 06/27/24 15:39 [facility] [id number]) Medical Review Prior Functional Status Medical History Reviewed Yes Communication I Mobility and Gait Prior pt did not use a device but admits that she sways when she walks. Activities of Daily Living and IADL's Completely independent with all ADL and IADL needs. Prior Functional Level (Other details) Pt's spouse has back issues and not able to assist her much. Pt's daughters lives locally and can check on her daily. Social History Household Members spouse Living Arrangements RV Number of Floors (Floors) One Floor Number of Stairs To Enter/Railing? 5 platform steps to enter. Home Environment Standard Height Toilet,High Toilet,Built-In Shower Seat Home Equipment Straight Cane,Shower Seat without Backrest,Hand Held Shower,Grab Bars In Shower Additional Social History Comment Pt has an electric recliner. M2 OT-IP Current Condition Start: 06/27/24 15:09 Freq: Status: Active Protocol: Document 06/27/24 15:18 [facility] (Rec: 06/27/24 15:39 [facility] [id number]) Occupational Therapy Current Condition Current Condition Evaluation Date 06/27/24 Treatment Diagnosis Right Humeral Head neck fx s/p CLosed reduction Diagnosis Onset Date 06/26/24 Post Operative Precautions Shoulder Precautions Sling Weight Bearing Status Weight Bearing Status Non-Weight Bearing Allowed Weight Bearing Amount (enter % RUE or #) (%) M3 OT- IP Subjective and Pain Start: 06/27/24 15:09 Freq: Status: Active Protocol: Document 06/27/24 15:18 [facility] (Rec: 06/27/24 15:39 [facility] [id number]) OT- Subjective Occupational Therapy Visit Type Type Initial Evaluation Visit Start Time 14:20 Visit Stop Time 15:20 Occupational Therapy Visit Comments Patient Comments Pt agreed to get up. Patient/Caregiver Goals TO go home. OT Pain Assessment Pain When Pain Assessed At Rest Pain Present Pain Present Denied Pain M4 OT- IP ADL's Start: 06/27/24 15:09 Freq: Status: Active Protocol: Document 06/27/24 15:18 [facility] (Rec: 06/27/24 15:39 [facility] [id number]) OT [id number] Comments OT Self-Feeding Comments Pt will need assist for set-up as only able to use her left hand at this time. OT ADL-Grooming Comments OT Grooming Comments Pt will need assist with set- up. OT ADL-Oral Care Comments Oral Care Comments Not performed. OT ADL-Dressing General Eval Upper Body Dressing Ability Maximum Assistance Lower Body Dressing Ability Maximum Assistance Areas Needing Assistance Socks Comments OT Dressing Comments Pt will need extensive assist for all sling management and dressing needs. Pt's right arm in splint and sling. Able to talk about what to clothing wear and use of the sling. OT ADL-Toileting Comments OT Toileting Comments Pt will need assist for hygiene and clothing management at this time. OT ADL-Bathing Comments OT Bathing Comments Pt will need assist. M5 OT- IP IADL's Start: 06/27/24 15:09 Freq: Status: Active Protocol: Document 06/27/24 15:18 [facility] (Rec: 06/27/24 15:39 [facility] [id number]) OT-Instrumental Activities of Daily Living Deficits IADL Deficits Identified Deficits Home Safety Awareness Awareness of Need for Assistance at Home Good Awareness Home Safety Comments Pt realizes that she will need a lot of asisst at home. Medication Management Medication Management Comments Prior pt did her own. Meal Preparation Meal Preparation Comments Pt will need assist. 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 M6 OT- IP Functional Cognition Start: 06/27/24 15:09 Freq: Status: Active Protocol: Document 06/27/24 15:18 [facility] (Rec: 06/27/24 15:39 [facility] [id number]) Cognitive Factors Limiting Selfcare Function Cognitive Ability Level of Alertness Alert,Drowsy Patient Orientation Name,Place,Situation Attention Span Ability Capable of Focused Attention, Capable of Sustained Attention Ability to Follow Commands Able to Follow One Step Commands with Increased Time, Able to Follow One Step Commands with Repetition Cognitive Comments Cognitive Assessment Comments Pt is a bit groggy and needing simple steps to follow in order to use the quad cane at this time. OT- Vision and Hearing OT- Hearing Assessment OT- Hearing Assessment WFL OT- Vision Assessment Visual Acuity Glasses For Reading Visual Attentiveness WFL Occular Pursuits WFL M7 OT- IP Mobility and Balance Start: 06/27/24 15:09 Freq: Status: Active Protocol: Document 06/27/24 15:18 [facility] (Rec: 06/27/24 15:39 [facility] [id number]) OT- Bed Mobility Assessment Supine to Sit Supine to Sit Assist Standby Assistance,Bedrails Sit to Supine Sit to Supine Assist Standby Assistance,Bedrails OT-Transfer Assessment Sit to and From Stand Sit to and from Stand Minimal Assistance Transfers Transfer Ability Minimal Assistance,Moderate Assistance Technique Transfer Destination Bed,Chair Transfer Technique Stand Step Pivot Devices Transfer Assistive Devices None,Gait Belt,Straight Cane, Small Based Quad Cane Comments Mobility Comments Pt unsteady on her feet and tend to sway to far to the right when shifting her weight on her feet when ambulating. In addition her RUE in a sling and fixed in a position with elbow flexed and RUE internally rotated to her side which is also making her unsteady. Pt needing from CGA to MIN/MODA for balance. Pt states wears shoes at home and asked her to call her family to bring them in. OT- Balance Assessment Sitting Balance and Reactions Static Sitting Balance Ability Good Dynamic Sitting Balance Ability Fair Standing Balance and Reactions Static Standing Balance Ability Fair Dynamic Standing Balance Ability Poor M8 OT- IP Objective Assessments Start: 06/27/24 15:09 Freq: Status: Active Protocol: Document 06/27/24 15:18 [facility] (Rec: 06/27/24 15:39 [facility] [id number]) OT Gross Range of Motion Upper Extremity Range of Motion Assessment Right Impaired OT Strength Upper Extremity Strength Assessment Right Impaired OT Sensation Assessment Edema Edema Comments Right hand swollen and educated pt to move her fingers into flexion and extension to help decrease the swelling in her right hand. M9 OT- IP Assessment and Plan Start: 06/27/24 15:09 Freq: Status: Active Protocol: Document 06/27/24 15:18 [facility] (Rec: 06/27/24 15:39 [facility] [id number]) OT Summary Assessment and Plan Potential Rehabilitation Potential Good Analytic Complexity at Evaluation Moderate Summary OT Impairments Range of Motion,Strength, Balance,Functional Mobility, Self-Feeding,Grooming,Dressing ,Toileting,Bathing,Toilet Transfers,Shower Transfers, Activity Tolerance Progress Towards Goals Slow Progress due to Medical Issues,Slow Progress due to Activity Tolerance Assessment Summary Pt MOD complexity and main barriers are steps, and now will need extensive assist for ADL needs and one person assist for mobility needs as pt is unsteady on her feet. Pending progress and ability of her to assist or whether her daughters can stay with her. Pt to go home with / assist and home health versus skilled rehab. However at this time pt is still on O2 and on on RA started at 93% and after eval dropped to 88% and best to go to skilled rehab Spoke to nursing and agreed to have pt on 1L of O2 - reading at 95% now. Goals Self-Feeding Goal Standby Assistance Grooming Goal Standby Assistance Dressing Goal Moderate Assistance Toileting Goal Minimal Assistance Bathing Goal Moderate Assistance Toilet Transfer Goal Standby Assistance Shower Transfer Goal Minimal Assistance Days to Meet Goals 15 Frequency of Treatment Other frequency 5x/week Treatment Plan OT Treatment Plan ADL Training,Functional Mobility,Patient/Family Education,Discharge Planning Discharge Recommendations OT Discharge Recommendations SNF Rehab,Home- pending progress and assist at home vs SNF Home Equipment Needs BSC, quad cane, bed cane
[2024-06-27 16:00] VITALS: BP 113/47; PULSE 63; RESP 15; TEMP 36.6; O2SAT 94
--- NOTE | 2024-06-27 17:24 | PM.HP.1 ---
History of Present Illness History of Present Illness Date Patient Seen: 06/27/24 Time Patient Seen: 13:00 Chief complaint: fall on thinners Narrative: This is a very pleasant 88-year-old female who is my personal patient. Patient has a past medical history that is most remarkable for paroxysmal atrial fibrillation for which she is symptomatic and intermittent rapid ventricular response. In fact she is undergoing an ablation on July [address] Russell. She was followed by [facility]. She is seen multiple different providers. She is currently on amiodarone. Patient has had over the last month a suppressed TSH and workup was performed and patient had a thyroid uptake scan that was ordered and she was coming back for the repeat images which it turns out they did not need when she sustained a ground level fall thought to probably be mechanical and fell and sustained a comminuted proximal humeral fracture of her right upper extremity. She then was taken to the ER and was evaluated with multiple imaging including x-rays and CT of neck and arm and head all which were negative. Patient is on Eliquis for her PE AFib. She was then set to be discharged home when she was noted to have desaturation into the 80s. At max she was on 3 L nasal cannula oxygen. This occurred after conscious sedation. 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 Patient had slightly elevated troponins and therefore was admitted to the hospital for further workup and treatment. Case was discussed with Cardiology and they recommended observation overnight with trending troponins and echo in the morning. Patient states that she is feeling better. Her pain is well-controlled except if she moves her arm. Ortho was consulted as well and they had recommended outpatient follow up of her fracture and did not feel it was surgical intervention warranted. It was reduced. Follow up films were stable Patient has otherwise been in her usual state of health. She denies any GI blood loss. She denies any change in bowel movements. She denies any unintentional weight loss or weight gain. She denies any anxiety or insomnia. Patient has not had any chest pain. She has had no decreased exercise tolerance or shortness a breath. She denies any palpitations or presyncope. Patient has recall of the event Past medical history: 1. Paroxysmal atrial fibrillation with intermittent RVR 2. Chronic anticoagulation with Eliquis 3. History of coronary artery disease 4. Hypertension 5. Hyperlipidemia 6. Osteoporosis 7 recurrent UTIs Allergies: Amoxicillin, Septra, Past surgical history: Unremarkable Health related behavior: Never been a smoker no alcohol and no illicit drugs Social history. 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 Patient has children who live here in and [facility] and are supportive. Her daughter and grandson are present at the bedside Family history: Negative for osteoporosis or coronary artery disease [facility] Medical History CAD (coronary artery disease) Chronic anticoagulation Hyperlipidemia Hypertension Paroxysmal atrial fibrillation with rapid ventricular response Social History household members: spouse Smoking Status: Never smoker alcohol intake: never Meds Home Medications and Allergies Home Medications Medication Instructions Recorded Confirmed Type MULTIVITAMIN (MULTI-VITAMINS) 1 tab PO Q DAY ##0 02/17/11 06/26/24 History calcium carbonate 600 mg-vitamin 1 cap PO QDAY ##0 02/17/11 06/26/24 History D3 10 mcg (400 unit) capsule (Calcium 600 with Vitamin D3) cholecalciferol (vitamin D3) 10 300 unit PO QDAY ##0 02/17/11 06/26/24 History mcg (400 unit) capsule (Vitamin D3) omega 9-hjl-feb-fish oil 1,000 mg 1,000 mg PO QDAY ##0 02/17/11 06/26/24 History (120 mg-180 mg) capsule (Fish Oil) simvastatin 40 mg tablet (Zocor) 20 mg PO QPM ##0 02/17/11 06/26/24 History losartan 50 mg tablet 50 mg PO BID ##0 05/16/17 06/26/24 History melatonin 5 mg tablet 5 mg PO QPM ##0 05/16/17 06/26/24 History vitamins A,C,F-qiqt-zikbay 4,296 1 cap PO QDAY ##0 05/16/17 06/26/24 History mcg-226 mg-90 mg capsule (PreserVision AREDS) warfarin 5 mg tablet (Coumadin) See Rx Instructions .Route 05/16/17 06/26/24 History .COMPLEX ##0 alendronate 70 mg tablet 70 mg PO QWEEK 12/26/22 06/26/24 History amiodarone 200 mg tablet 200 mg PO DAILY 12/26/22 06/26/24 History amlodipine 2.5 mg tablet 2.5 mg PO DAILY 12/26/22 06/26/24 History budesonide 3 mg 6 mg PO DAILY 12/26/22 06/26/24 History capsule,delayed,extended release metoprolol tartrate 25 mg tablet 25 mg PO BID 12/26/22 06/26/24 History trazodone 100 mg tablet 100 mg PO QPM 12/26/22 06/26/24 History apixaban 2.5 mg tablet 2.5 mg PO BID 06/26/24 06/26/24 History estradiol 0.01% (0.1 mg/gram) g vaginal 2XW 06/26/24 History vaginal cream furosemide 40 mg tablet (Lasix) 20 mg PO DAILY 06/26/24 06/26/24 History Allergies Allergy/AdvReac Type Severity Reaction Status Date / Time amoxicillin [AMOXICILLIN] Allergy Intermediate Hives Verified 12/27/22 11:11 sulfamethoxazole Allergy Verified 02/14/21 19:51 [From ] trimethoprim [From Aprra] Allergy Verified 02/14/21 19:51 Exam Vital Signs (past 8 hours): - 06/27/24 12:01 06/27/24 16:00 Temperature 98.2 F 97.8 F Pulse Rate 64 63 Respiratory Rate 16 15 Blood Pressure 138/54 L 113/47 L Pulse Oximetry 89 L 94 Oxygen Delivery Method Room Air,Nasal Cannula Oxygen Flow Rate 2 Narrative Exam Narrative: Patient is afebrile vital signs are stable. O2 sat is in the 90s on room air at rest Heart rate is in the 60s Patient is alert and oriented and resting comfortably in the hospital bed. Patient is excellent historian HEENT: Unremarkable other than bruising left upper lip Neck: Shows jugular venous distention 2+, no adenopathy, question generous thyroid but no nodules noted Chest: Clear to auscultation without wheezes rhonchi or crackles Cor: Currently in regular rate and rhythm at 60s Abdomen: Positive bowel sounds, soft, nontender, nondistended, no hepatosplenomegaly Extremities no edema pulses intact. Right upper extremity shows normal capillary refill time of the fingers upper arms not examined Skin no rashes Objective Labs 06/27/24 05:34 06/27/24 05:34 Labs: Laboratory Results - last 24 hr 06/26/24 06/26/24 06/26/24 16:09 18:38 19:00 Hgb Hct Plt Count APTT 34 Sodium Potassium Chloride Carbon Dioxide BUN Creatinine Estimated GFR BUN/Creatinine Ratio Glucose Calcium Total Bilirubin AST ALT Alkaline Phosphatase Troponin I 0.041 H 0.067 H NT-Pro-B Natriuret Pep 2490 H Total Protein Albumin Globulin Albumin/Globulin Ratio Urine Color Yellow Urine Appearance Clear Urine pH 6.0 Ur Specific [place] 1.025 Urine Protein Negative Urine Glucose (UA) Trace H Urine Ketones Trace H Urine Occult Blood Negative Urine Nitrate Negative Urine Bilirubin Negative Urine Urobilinogen 0.2 Ur Leukocyte Esterase Negative Urine RBC 0-1/hpf Urine WBC 1-5/hpf Ur Squamous Epith Cells 1-5 /hpf Urine Bacteria Few (2-10) H Urine Yeast 1-5/hpf H Ur Culture Indicated? Cult not indicated Vol Urine Centrifuged 10ml (spun) 06/26/24 06/27/24 06/27/24 20:15 01:13 03:26 Hgb Hct Plt Count APTT 139 H* D 96 H* D Sodium Potassium Chloride Carbon Dioxide BUN Creatinine Estimated GFR BUN/Creatinine Ratio Glucose Calcium Total Bilirubin AST ALT Alkaline Phosphatase Troponin I 0.066 H NT-Pro-B Natriuret Pep Total Protein Albumin Globulin Albumin/Globulin Ratio Urine Color Urine Appearance Urine pH Ur Specific [place] Urine Protein Urine Glucose (UA) Urine Ketones Urine Occult Blood Urine Nitrate Urine Bilirubin Urine Urobilinogen Ur Leukocyte Esterase Urine RBC Urine WBC Ur Squamous Epith Cells Urine Bacteria Urine Yeast Ur Culture Indicated? Vol Urine Centrifuged 06/27/24 06/27/24 05:34 10:40 Hgb 12.5 Hct 36.6 Plt Count 150 APTT 60 H D Sodium 136 L Potassium 3.4 Chloride 100 Carbon Dioxide 34 H BUN 13 Creatinine 0.72 Estimated GFR > 60 BUN/Creatinine Ratio 18.1 Glucose 137 H Calcium 8.3 L Total Bilirubin 0.7 AST 24 ALT 28 Alkaline Phosphatase 38 Troponin I 0.040 H 0.037 H NT-Pro-B Natriuret Pep 1440 H Total Protein 5.6 L Albumin 3.2 L Globulin 2.4 Albumin/Globulin Ratio 1.3 Urine Color Urine Appearance Urine pH Ur Specific [place] Urine Protein Urine Glucose (UA) Urine Ketones Urine Occult Blood Urine Nitrate Urine Bilirubin Urine Urobilinogen Ur Leukocyte Esterase Urine RBC Urine WBC Ur Squamous Epith Cells Urine Bacteria Urine Yeast Ur Culture Indicated? Vol Urine Centrifuged Assessment & Plan Assessment & Plan narrative: 88-year-old female with multiple medical problems admitted for hypoxemia and right proximal humeral fracture Assessment 1. Right proximal humeral fracture, status post CT and x-ray and reduction in the ER with conscious sedation. Orthopedics has been consulted and they plan to evaluate her later today. PT and OT consulted. Patient will be nonweightbearing on this extremity. Bedrest is discontinued. Continue with current pain management Assessment 2. Hypoxemia post conscious sedation in the setting of a patient with PH AFib and distant history of coronary artery disease. Patient was treated with Lasix suspect this was a complication of the conscious sedation. Differential included acute coronary syndrome, non-STEMI, stress induced acute MD, pulmonary edema. Plan: Reviewed with patient results of cardiac enzymes, echo and improvement. At this point will continue with her same medications. Will recheck labs in the morning and if she is stable and on room air and does not desat with exertion she will be discharged home. Assessment 3. Troponinemia with history of coronary artery disease in the setting of acute hypoxemia. Again suspect that the hypoxemia was secondary to the conscious sedation and stress of the arm fracture. Maximum troponin was 0.067. She is now at 0.03. Echo did not show any gross hypokinesis. Left ventricular ejection fraction was maintained and there was mild left ventricular hypertrophy with some very mild valvular regurgitation. We attempted to do a Lexiscan inpatient however were not able to get this scheduled. We will monitor overnight and recheck troponin and if this looks good then we will discharge tomorrow. She will then follow up with me next week and will do a stress test at that time. She will continue with her same outpatient medications. Including statin, Eliquis, losartan and metoprolol and Lasix 20 mg daily. Heparin discontinued and Eliquis restarted today Assessment 4. Slightly suppressed TSH with thyroid scan showing decreased activity inpatient with possible nodule. Plan thyroid ultrasound ordered but they are unable to do it unless she takes a sling off and patient declined. We will do as outpatient. Assessment 5. Hypertension, currently well-controlled Plan: Continue outpatient medications Assessment 6. Hyperlipidemia Plan: Continue with same statin DVT prophylaxis: Plan continue Eliquis. Heparin discontinued Code status is DNR 77 minutes spent with patient in reviewing clinic chart, discussing with Cardiology, nursing, admitting physician, reviewing workup and meeting with patient and family and formulating a plan and documentation. Time-Based Coding :: [TOTAL MINUTES] spent with patient and on the chart (including review of chart, obtaining history, exam, reviewing outside data, placing orders, documenting exam and treatment plan, and counseling patient) on [DATE].
[2024-06-27 20:00] VITALS: BP 120/54; PULSE 74; RESP 18; TEMP 36.8; O2SAT 95
[2024-06-27] MEDS: APIXABAN 5 MG TABLET 2.5 MG PO (22:00)
[2024-06-27] MEDS: MELATONIN 3 MG TABLET 6 MG PO (22:00)
[2024-06-27] MEDS: ATORVASTATIN 20 MG TABLET PO (22:00)
[2024-06-27] MEDS: TRAZODONE 50 MG TABLET 100 MG PO (22:00)
[2024-06-28] VITALS: BP 133/61; PULSE 75; RESP 16; TEMP 36.4; O2SAT 97
[2024-06-28 04:00] VITALS: BP 144/64; PULSE 72; RESP 18; TEMP 35.8; O2SAT 97
[2024-06-28 06:43] LABS: Add Manual Diff / Slide Review NO; Basophils Absolute Auto 0 /uL (0-100); Basophils Percent Auto 0.3 % (0-2); Eosinophils Absolute Auto 0 /uL (0-450); Eosinophils Percent Auto 0.4 % (2-4); Hematocrit 36.9 % (36-46); Hemoglobin 12.5 g/dL (12.0-16.0); Lymphocytes Absolute Auto 2100 /uL (1100-4500); Lymphocytes Percent Auto 32.7 % (25-40); Mean Corpuscular HGB Conc 33.8 % (30-36); Mean Corpuscular Hemoglobin 31.4 PG (26-34); Monocytes Absolute Auto 900 /uL (0-900); Monocytes Percent Auto 13.2 % (3-14); Neutrophils Absolute Auto 3500 /uL (1500-7000); Neutrophils Percent Auto 53.4 % (50-75); Platelet Count 129 X10^3/uL (150-400); Red Blood Cell Count 3.97 X10^6/uL (4.0-5.2); Red Cell Distribution Width 13.7 % (11.6-14.8); White Blood Cell Count 6.5 X10^3/uL (4.5-11.0)
[2024-06-28 07:03] LABS: BUN Creatinine Ratio 24.6 (6-22); Blood Urea Nitrogen 16 mg/dL (7-17); Calcium 8.7 mg/dL (8.4-10.2); Carbon Dioxide 34 mmol/L (22-32); Chloride 100 mmol/L (98-107); Estimated Glomerular Filt Rate > 60 mL/min (>60); Glucose 120 mg/dL (80-110); HEMOLYSIS < 15 (0-50); Potassium 3.5 mmol/L (3.4-5.1); Sodium 134 mmol/L (137-145)
[2024-06-28 07:13] LABS: Troponin I 0.017 ng/mL (0.01-0.034)
[2024-06-28 08:00] VITALS: BP 127/67; PULSE 86; RESP 15; TEMP 36.1; O2SAT 96
[2024-06-28 08:58] VITALS: BP 127/67
[2024-06-28] MEDS: AMIODARONE 200 MG TABLET PO (08:58)
[2024-06-28] MEDS: BUDESONIDE 3 MG CAP 6 MG PO (08:58)
[2024-06-28] MEDS: LOSARTAN 50 MG TABLET PO (08:58)
[2024-06-28] MEDS: AMLODIPINE 5 MG TABLET 2.5 MG PO (08:58)
[2024-06-28] MEDS: APIXABAN 5 MG TABLET 2.5 MG PO (08:58)
[2024-06-28] MEDS: ACETAMINOPHEN 325 MG TABLET 650 MG PO ×2 (08:59→17:21)
[2024-06-28] MEDS: METOPROLOL IR 25 MG TABLET PO (08:59)
[2024-06-28] MEDS: MULTIVITAMIN 1 TABLET 1 TAB PO (08:59)
--- NOTE | 2024-06-28 10:10 | PT.IPTN ---
Current Diagnoses Unspecified fracture of upper end of right humerus, initial encounter for closed fracture (06/26/24) Physical Therapy Treatment Note M2 PT-IP Current Condition Start: 06/27/24 16:59 Freq: NEEDED Status: Active Protocol: Document 06/27/24 14:20 AB (Rec: 06/27/24 17:21 AB [id number]) Physical Therapy Current Condition Current Condition Evaluation Date 06/27/24 Treatment Diagnosis s/p fall; R humerus fx; difficulty in walking Onset Date 06/26/24 M3 PT-IP Subjective Start: 06/27/24 16:59 Freq: NEEDED Status: Active Protocol: Document 06/28/24 10:21 TS (Rec: 06/28/24 10:27 TS [id number]) Subjective Physical Therapy Visit Type Type Treatment Note Visit Start Time 10:10 Visit Stop Time 10:20 Number of OUTSIDE PARTS SALES Visits 1 Physical Therapy Visit Comments Patient Comments Pt found resting in the chair, she is agreeable to PT. M4 PT-IP Mobility and Gait Start: 06/27/24 16:59 Freq: NEEDED Status: Active Protocol: Document 06/28/24 10:21 TS (Rec: 06/28/24 10:27 TS [id number]) PT-Transfer Assessment Sit to and From Stand Sit to and from Stand Standby Assistance Equipment Transfer Assistive Device None,Gait Belt Orthotic/Prosthetic Devices or Brace: Yes Comments Mobility Comments STS with no AD SBA. Pt ambulates with use of quad cane ~125'SBA, she is slightly unsteady, pt tends to not have cane on ground. She performs stairs x3 with single rail SBA. Education provided to pt on NWB RUE. Pt was left back in the chair, all needs met. Gait Assessment Gait Gait Assistance Required: Standby Assistance Distance (Feet) 125 Able to Maintain Weight Bearing Status Yes During Gait Assistive Devices Assistive Device None,Gait Belt,Small Based Quad Cane Orthotic/Prosthetic Devices or Brace: Yes Gait Deviations General Gait Pattern Antalgic,Ataxic,Decreased Stride Length,Decreased Feet Clearance Factors Limiting Gait Function Factors Limiting Gait Function Decreased Activity Tolerance, Decreased Strength,Limited Range of Motion,Poor Balance, Poor Safety Awareness Stair Climbing Assessment Evaluation Level of Assist On Stairs Standby Assistance Devices Stair Climbing Assistive Devices Left Railing Technique/Endurance Stair Climbing Direction Ascend and Descend Stair Climbing Technique Step Over Step Number of Steps Climbed 3 PT-Balance Assessment Sitting Balance and Reactions Static Sitting Balance Ability Good Dynamic Sitting Balance Ability Fair Standing Balance and Reactions Static Standing Balance Ability Good Dynamic Standing Balance Ability Fair Device Used without AD M5 PT-IP Objective Assessments Start: 06/27/24 16:59 Freq: NEEDED Status: Active Protocol: Document 06/27/24 14:20 AB (Rec: 06/27/24 17:21 AB [id number]) Orientation Orientation/Cognition Level of Alertness Alert Orientation Name,Place,Situation Language Function Ability No Deficits Noted Safety Awareness Decreased Safety Awareness Memory Description No Deficits Noted Gross Range of Motion Lower Extremity ROM Assessment Within Functional Limits Strength Lower Extremity Strength Assessment Within Functional Limits Coordination Assessment Gross Coordination Gross Coordination WNL Muscle Tone Muscle Tone WNL Yes M6 PT-IP Treatment Start: 06/27/24 16:59 Freq: NEEDED Status: Active Protocol: Document 06/28/24 10:21 TS (Rec: 06/28/24 10:27 TS [id number]) Physical Therapy Treatment Education Education Provided Precautions,Weight Bearing Status,Safety M7 PT-IP Assessment and Plan Start: 06/27/24 16:59 Freq: NEEDED Status: Active Protocol: Document 06/28/24 10:21 TS (Rec: 06/28/24 10:27 TS [id number]) PT Summary Assessment and Plan Potential Rehabilitation Potential Fair Summary Impairments Pain,ROM,Strength,Balance, Coordination,Sensation,Tone, Cognition,Bed Mobility, Transfers,Gait,Activity Tolerance Progress Towards Goals Progressing Toward Goals Assessment Summary Pt is making progress with her mobility. She is SBA for STS and gait. She is slightly unsteady with gait. She tends to leave quad cane off the ground. Recommended pt use cane at home. She performed steps x3 SBA with no difficulty. PT is recommending home with assist. Goals Bed Mobility Goal Minimal Assistance Transfer Goal Standby Assistance,Cane Gait Goal Standby Assistance,Cane Gait Distance 150 Other Goals improve bed mobility, transfers, ambulation using LRAD ~ 200 ft mod I up/down 5 platform steps using AD SBA Days to Meet Goals 10 Frequency of Treatment Frequency Of Treatment Once a Day Treatment Plan Physical Therapy Treatment Plan Bed Mobility Training,Transfer Training,Gait Training, Therapeutic Exercise,Balance Retraining,Discharge Planning, Hot or Cold Pack,Neuromuscular Re-ed,Coordination Retraining ,Manual Therapy Precautions Shoulder Precautions Sling Weight Bearing Status Weight Bearing Status Non-Weight Bearing Allowed Weight Bearing Amount (enter % RUE or #) (%) Recommendations To Nursing Amount of Assist Needed Standby Assistance Discharge Recommendations PT Discharge Recommendations Home with Assistance Transportation Needs at Discharge Private Vehicle
[2024-06-28] MEDS: POTASSIUM CHLORIDE 20 MEQ TAB PO (11:04)
--- NOTE | 2024-06-28 11:28 | OT.IP.TRT ---
Current Diagnoses Unspecified fracture of upper end of right humerus, initial encounter for closed fracture (06/26/24) Occupational Therapy Treatment Note M2 OT-IP Current Condition Start: 06/27/24 15:09 Freq: Status: Active Protocol: Document 06/27/24 15:18 [facility] (Rec: 06/27/24 15:39 [facility] [id number]) Occupational Therapy Current Condition Current Condition Evaluation Date 06/27/24 Treatment Diagnosis Right Humeral Head neck fx s/p CLosed reduction Diagnosis Onset Date 06/26/24 Post Operative Precautions Shoulder Precautions Sling Weight Bearing Status Weight Bearing Status Non-Weight Bearing Allowed Weight Bearing Amount (enter % RUE or #) (%) M3 OT- IP Subjective and Pain Start: 06/27/24 15:09 Freq: Status: Active Protocol: Document 06/28/24 11:45 [facility] (Rec: 06/28/24 12:02 [facility] [id number]) OT- Subjective Occupational Therapy Visit Type Type Treatment Note Visit Start Time 11:14 Visit Stop Time 11:28 Occupational Therapy Visit Comments Patient Comments Pt agreed to get up to brush her teeth. Patient/Caregiver Goals To go home. OT Pain Assessment Pain When Pain Assessed At Rest Pain Present Pain Present Denied Pain M4 OT- IP ADL's Start: 06/27/24 15:09 Freq: Status: Active Protocol: Document 06/28/24 11:45 [facility] (Rec: 06/28/24 12:02 [facility] [id number]) OT [id number] Comments OT Self-Feeding Comments Pt will need assist with set- up. OT ADL-Grooming Comments OT Grooming Comments Pt states will not be able to curl her hair and just now have a daughter get a wrap for her head. OT ADL-Oral Care General Eval Oral Care Ability Independent Comments Oral Care Comments Pt's right hand still swollen and able to pull back the yvonne wrap and padding so able to move her finger more to assist with set-up for oral care needs. OT ADL-Dressing General Eval Lower Body Dressing Ability Standby Assistance Comments OT Dressing Comments Pt able to jose carlos/doff her socks with increased time and states has been using the toilet on her own in the room. OT ADL-Toileting General Evaluation Toileting Ability Independent OT ADL-Bathing Comments OT Bathing Comments Pt will need assist for bathing needs. M5 OT- IP IADL's Start: 06/27/24 15:09 Freq: Status: Active Protocol: Document 06/27/24 15:18 [facility] (Rec: 06/27/24 15:39 [facility] [id number]) OT-Instrumental Activities of Daily Living Deficits IADL Deficits Identified Deficits Home Safety Awareness Awareness of Need for Assistance at Home Good Awareness Home Safety Comments Pt realizes that she will need a lot of assist at home. Medication Management Medication Management Comments Prior pt did her own. Meal Preparation Meal Preparation Comments Pt will need assist. Preschool Assistant Principal Preschool Assistant Principal Comments Pt will need assist. M6 OT- IP Functional Cognition Start: 06/27/24 15:09 Freq: Status: Active Protocol: Document 06/28/24 11:45 [facility] (Rec: 06/28/24 12:02 [facility] [id number]) Cognitive Factors Limiting Selfcare Function Cognitive Ability Level of Alertness Alert Attention Span Ability Capable of Focused Attention, Capable of Sustained Attention Ability to Follow Commands Able to Follow One Step Commands Cognitive Comments Cognitive Assessment Comments Pt much more alert and has good understanding for RUE NWB and use of sling. M7 OT- IP Mobility and Balance Start: 06/27/24 15:09 Freq: Status: Active Protocol: Document 06/28/24 11:45 [facility] (Rec: 06/28/24 12:02 [facility] [id number]) OT-Transfer Assessment Sit to and From Stand Sit to and from Stand Independent Transfers Transfer Ability Independent,Standby Assistance Technique Transfer Destination Chair Devices Transfer Assistive Devices None Comments Mobility Comments Pt much steadier on her feet and still has slight sway to the right. Pt states good understanding to use a cane as needed and states the able to hold items in the home. OT- Balance Assessment Sitting Balance and Reactions Static Sitting Balance Ability Normal Dynamic Sitting Balance Ability Normal Standing Balance and Reactions Static Standing Balance Ability Good Dynamic Standing Balance Ability Fair M8 OT- IP Objective Assessments Start: 06/27/24 15:09 Freq: Status: Active Protocol: Document 06/27/24 15:18 [facility] (Rec: 06/27/24 15:39 [facility] [id number]) OT Gross Range of Motion Upper Extremity Range of Motion Assessment Right Impaired OT Strength Upper Extremity Strength Assessment Right Impaired OT Sensation Assessment Edema Edema Comments Right hand swollen and educated pt to move her fingers into flexion and extension to help decrease the swelling in her right hand. M9 OT- IP Assessment and Plan Start: 06/27/24 15:09 Freq: Status: Active Protocol: Document 06/28/24 11:45 [facility] (Rec: 06/28/24 12:02 [facility] [id number]) OT Summary Assessment and Plan Potential Rehabilitation Potential Good Analytic Complexity at Evaluation Moderate Summary OT Impairments Range of Motion,Strength, Balance,Functional Mobility, Dressing,Toileting,Bathing, Toilet Transfers,Shower Transfers,Activity Tolerance Progress Towards Goals Progressing Toward Goals Assessment Summary Pt moving much better today and steadier on her feet. Pt will benefit from 07/03 assist especially for showering, dressing , and IADl needs. Pt wanting to go home and suggested pt to have daughter stay with them initially to assist. Goals Self-Feeding Goal Standby Assistance Grooming Goal Independent Dressing Goal Moderate Assistance Toileting Goal Independent Bathing Goal Minimal Assistance Toilet Transfer Goal Independent Shower Transfer Goal Standby Assistance Days to Meet Goals 7 Frequency of Treatment Other frequency 5x/week Treatment Plan OT Treatment Plan ADL Training,Functional Mobility,Patient/Family Education,Discharge Planning Discharge Recommendations OT Discharge Recommendations Home with 24/7 Assist Available Home Equipment Needs BSC, bed cane
[2024-06-28 12:00] VITALS: BP 106/56; PULSE 65; RESP 14; TEMP 36.7; O2SAT 95
[2024-06-28 16:00] VITALS: BP 114/59; PULSE 75; RESP 15; TEMP 36.2; O2SAT 91
--- NOTE | 2024-06-28 17:03 | PM.DS.1 ---
History of Present Illness History of Present Illness Date Patient Seen: 06/28/24 Time Patient Seen: 17:03 Date of Onset of Symptoms: 06/26/24 Chief complaint: fall on thinners Narrative: This is a very pleasant 88-year-old female who is my personal patient. Patient has a past medical history that is most remarkable for paroxysmal atrial fibrillation for which she is symptomatic and intermittent rapid ventricular response. In fact she is undergoing an ablation on July [address] Russell. She was followed by [facility]. She is seen multiple different providers. She is currently on amiodarone. Patient has had over the last month a suppressed TSH and workup was performed and patient had a thyroid uptake scan that was ordered and she was coming back for the repeat images which it turns out they did not need when she sustained a ground level fall thought to probably be mechanical and fell and sustained a comminuted proximal humeral fracture of her right upper extremity. She then was taken to the ER and was evaluated with multiple imaging including x-rays and CT of neck and arm and head all which were negative. Patient is on Eliquis for her PE AFib. She was then set to be discharged home when she was noted to have desaturation into the 80s. At max she was on 3 L nasal cannula oxygen. This occurred after conscious sedation. She received Lasix and over the course of the evening and felt washing machine tender she was weaned off her oxygen. Patient had slightly elevated troponins and therefore was admitted to the hospital for further workup and treatment. Case was discussed with Cardiology and they recommended observation overnight with trending troponins and echo in the morning. Patient states that she is feeling better. Her pain is well-controlled except if she moves her arm. Ortho was consulted as well and they had recommended outpatient follow up of her fracture and did not feel it was surgical intervention warranted. It was reduced. Follow up films were stable Patient has otherwise been in her usual state of health. She denies any GI blood loss. She denies any change in bowel movements. She denies any unintentional weight loss or weight gain. She denies any anxiety or insomnia. Patient has not had any chest pain. Discharge Providers Provider Date of admission: 06/26/24 18:52 Discharge Date: 06/28/24 Primary care physician: Sharmila Palmer MD Consults: 06/27/24 10:59 Consult to Physical Therapy Evaluate & Treat Comment: Fracture of the rt arm. Physician Instructions: Evaluate and Treat 06/27/24 14:19 Consult to Occupational Therapy Evaluate & Treat Comment: Physician Instructions: Evaluate and treat Discharge provider: Alessandro Pack MD Summary Hospital Course Discharge Diagnosis: Right proximal humeral fracture Hypoxemia Elevated troponin Slightly suppressed TSH Hypertension Atrial fibrillation Hospital Course: Right proximal humeral fracture. Patient was actually reduced in the emergency room. Ortho was consulted and briefly saw her and was going to decide on whether or not she would to stay in the current brace or move to a sling. We will set that up and then see her early next week. Pain control with hydrocodone. Discussed constipation. No other changes. Hypoxemia. Patient was noted to be hypoxemic after anesthesia. She was followed and x-ray was negative. She had no elevation of her enzymes BNP was mildly elevated. It was felt to be secondary to her medication she was given during the emergency room and she recovered completely normalized and will be followed as an outpatient. Was supported with oxygen for 36 hours. Elevated troponin. Patient was noted to have an elevated troponin. [place] to be secondary to possible demand ischemia. Patient normalized over 24 hours. EKG showed no abnormality. Echo showed no change. Discussed with Cardiology. Will need treadmill as outpatient. Will be set up by her PCP next week. Slightly suppressed TSH. Thyroid scan showing decreased activity. Possible nodule. Patient will be followed up as an outpatient. With no active issue right now. Atrial fibrillation. Stable throughout course. Recently cardioverted. Has been set up for an ablation which may or may not be rescheduled due to her fracture. Will have to see how things go Dr. Palmer will do with this next week. Hypertension. Stable throughout course. Hyperlipidemia stable. 40 minutes spent with the patient dictation orders Exam Vital Signs (past 8 hours): - 06/28/24 12:00 06/28/24 16:00 Temperature 98.1 F 97.2 F L Pulse Rate 65 75 Respiratory Rate 14 15 Blood Pressure 106/56 L 114/59 L Pulse Oximetry 95 91 Oxygen Flow Rate 0 0 Oxygen Delivery Method Nasal Cannula Oxygen Flow Rate 0 Narrative Exam Narrative: Alert elderly female sitting in chair in no acute distress. This morning she had oxygen has completely been removed and she is doing well all day today. Lungs are clear. Heart is regular rate and rhythm without murmur abdomen is soft positive bowel sounds nontender extremities without abnormality except for right arm which is in a sling neurologic exam is normal Objective Labs 06/28/24 05:40 06/28/24 05:40 Labs: Laboratory Results - last 24 hr 06/28/24 05:40 WBC 6.5 RBC 3.97 L Hgb 12.5 Hct 36.9 MCV 93.0 MCH 31.4 MCHC 33.8 RDW 13.7 Plt Count 129 L Neut % (Auto) 53.4 Lymph % (Auto) 32.7 [place] % (Auto) 13.2 Eos % (Auto) 0.4 L Baso % (Auto) 0.3 Neut # (Auto) 3500 Lymph # (Auto) 2100 [place] # (Auto) 900 Eos # (Auto) 0 Baso # (Auto) 0 Sodium 134 L Potassium 3.5 Chloride 100 Carbon Dioxide 34 H BUN 16 Creatinine 0.65 Estimated GFR > 60 BUN/Creatinine Ratio 24.6 H Glucose 120 H Calcium 8.7 Troponin I 0.017 PFSH Medical History CAD (coronary artery disease) Chronic anticoagulation Hyperlipidemia Hypertension Paroxysmal atrial fibrillation with rapid ventricular response Social History household members: spouse Smoking Status: Never smoker alcohol intake: never Discharge Assessment & Plan Assessment and Plan Assessment: Improved Plan of Treatment: Discharge to home Discharge Plan Discharge Plan Patient Disposition: Home Nursing Discharge Comment: Make a follow up appointment with Dr. Quarles in a week for your right arm fracture. [phone] Discharge orders & Medications Prescriptions: New hydrocodone-acetaminophen 5-325 mg tablet 1 tab PO Q6H PRN (Reason: pain) Qty: 30 0RF Continued simvastatin [Zocor] 40 MG tablet 20 mg PO QPM Qty: 0 omega 7-ten-qhw-fish oil [Fish Oil] 1,000 MG capsule 1,000 mg PO QDAY Qty: 0 calcium carbonate-vitamin D3 [Calcium 600 with Vitamin D3] 600 MG/200 IU capsule 1 cap PO QDAY Qty: 0 MULTIVITAMIN (MULTI-VITAMINS) 1 tab PO Q DAY Qty: 0 cholecalciferol (vitamin D3) [Vitamin D3] 400 unit capsule 300 unit PO QDAY Qty: 0 losartan 50 MG tablet 50 mg PO BID Qty: 0 melatonin 5 MG tablet 5 mg PO QPM Qty: 0 PreserVision AREDS 1 EACH capsule 1 cap PO QDAY Qty: 0 alendronate 70 mg tablet 70 mg PO QWEEK Patient Comments: Take 70 mg by mouth once a week trazodone 100 mg tablet 100 mg PO QPM Patient Comments: take 1 tablet by mouth nightly amiodarone 200 mg Tablet 200 mg PO DAILY amlodipine 2.5 mg Tablet 2.5 mg PO DAILY budesonide 3 mg Capsule,Delayed,Extend.Release 6 mg PO DAILY metoprolol tartrate 25 mg Tablet 25 mg PO BID furosemide [Lasix] 40 mg tablet 20 mg PO DAILY apixaban 2.5 mg Tablet 2.5 mg PO BID estradiol 0.01 % (0.1 mg/gram) cream 0.01 applic vaginal 2XW Discontinued warfarin [Coumadin] 5 MG tablet See Rx Instructions .ROUTE .COMPLEX Qty: 0 Rx Instructions: 2.5 mg by mouth for two days, skipping dose the next two days and so forth Follow up/Referrals: Sharmila Palmer MD [Primary Care Provider] - 3-5 Days (patient to call tomorrow for appointment) Diet/Activity/Treatments Diet: Diet as Tolerated Other treatments: As tolerated wear sling as orthopedic recommends Skin/Wound/Dressing Care Report to your healthcare provider any signs of infection, such as:: increased pain Visit Report/Discharge Packet Instructions: DI for Heart Failure, How to Prevent Falls, DI for Prescription Opioid Use, DI for Humeral Fracture Stand Alone Forms: Congestive Heart Failure, Patient Portal/API, Stroke Signs & Symptoms, Patient Portal/API/Survey Discharge Data Primary Care Provider: Sharmila Palmer
--- NOTE | 2024-06-28 17:42 | PC.NURSE ---
Pt is dressed and ready for discharge home with Daughter. IV's and tele have been removed. Went over d/c instructions with Pt and Daughter-discussed d/c meds, time of last dose, reviewed stroke education, s/s of infection, CHF guidelines, take no more than 3000mg of tylenol in 24 hours and no driving if taking narcotics and until cleared by PT. Pt to call to make a follow up appointment with Dr. Palmer and Ortho for Tuesday. Pt denied further questions and was taken out via w/c by INSIDE SALES MANAGER to POV with Daughter and all belongings.
== END 2024-06-28 17:47 | disposition home or self-care (01) | DRG 563 ==
LOC: ED 18:36 → AC 19:06
PROVIDERS: Admitting Provider Family Medicine; Emergency Provider Emergency Medicine; PCP Family Medicine; Visit Provider Family Medicine
DX: S42.211A Unspecified displaced fracture of surgical neck of right humerus, initial encounter for closed fracture (principal); I24.89 Other forms of acute ischemic heart disease; E07.9 Disorder of thyroid, unspecified; R79.89 Other specified abnormal findings of blood chemistry; I48.0 Paroxysmal atrial fibrillation; R09.02 Hypoxemia; I25.10 Atherosclerotic heart disease of native coronary artery without angina pectoris; I10 Essential (primary) hypertension; E78.5 Hyperlipidemia, unspecified; T41.295A Adverse effect of other general anesthetics, initial encounter; W18.30XA Fall on same level, unspecified, initial encounter; Z66 Do not resuscitate; Z79.01 Long term (current) use of anticoagulants
CPT/HCPCS: 23605; 36415; 70450; 71045; 72125; 73020; 73030; 73060; 73200; 78014; 80048; 80053; 81001; 83880; 84484; 85014; 85018; 85025; 85049; 85730; 93005; 93010; 93306; 96365; 96366; 96375; 97116; 97162; 97166; 97530; 97535; 99152; 99153; 99285; 99291; A9516; J1171; J1644; J1940; J2405

== ENCOUNTER 2024-07-13 10:06 | Emergency (ER) | payer MEDICARE, SELFPAY ==
[2024-06-26 21:33] VITALS: BMI 24.7
[2024-07-13 10:23] VITALS: BP 176/76; PULSE 101; RESP 15; TEMP 36.9; O2SAT 95; BMI 25.2
--- NOTE | 2024-07-13 11:10 | PC.NURSE ---
Pt c/o tingling in right arm & elbow. PA notified.
--- NOTE | 2024-07-13 11:38 | DI.RAD.S_ITS ---
PROCEDURE: XR CHEST 1V INDICATIONS: fall 06/26; R posterior back pain R shoulder fx TECHNIQUE: One view of the chest was acquired. COMPARISON: [facility], CR, XR CHEST 1V, 06/26/2024, 15:43. [facility], CR, XR CHEST 1V, 12/26/2022, 16:26. FINDINGS: Surgical changes and devices: None. Lungs and pleura: Possible right lower lung granuloma. No dense airspace disease or pleural effusions. Mediastinum: Cardiomegaly Bones and chest wall: Degenerative changes. Spine CTs are ordered. IMPRESSION: Limited single view radiograph without acute abnormality. Cardiomegaly again seen. Dictated by: Jesus Stafford M.D. on 07/13/2024 at 11:59 Approved by: Jesus Stafford M.D. on 07/13/2024 at 12:00
--- NOTE | 2024-07-13 11:39 | DI.CT.S_ITS ---
PROCEDURE: CT THORACIC SPINE WO CON INDICATIONS: fall 06/26; R flank pain TECHNIQUE: Noncontrast 3 mm thick sections acquired through the region of interest in the thoracic spine. Sagittal and coronal reformats were then constructed. For radiation dose reduction, the following was used: automated exposure control. COMPARISON: None. FINDINGS: Image quality: Diagnostic Bones: Vertebral body heights are well maintained. Mild background spondylotic changes. No traumatic subluxation. Lumbar spine findings are separately dictated. Soft tissues: No significant paravertebral fluid collection or mass. Partially visualized chest without pneumothorax. Bibasilar pulmonary opacities, probably atelectasis. Partially seen cardiomegaly, coronary calcifications, and annular cardiac densities. 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 IMPRESSION: No acute fracture or traumatic subluxation of the thoracic spine. Lumbar spine findings are separately dictated. Bibasilar pulmonary atelectasis. Partially seen cardiomegaly and coronary calcifications. 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 Dictated by: Jesus Stafford M.D. on 07/13/2024 at 12:36 Approved by: Jesus Stafford M.D. on 07/13/2024 at 12:38
--- NOTE | 2024-07-13 11:39 | DI.CT.S_ITS ---
PROCEDURE: CT LUMBAR SPINE WO CON INDICATIONS: fall 06/26; R sided low back pain TECHNIQUE: Noncontrast 3 mm thick sections acquired from the T12 level to the sacrum. Sagittal and coronal reformats were constructed. For radiation dose reduction, the following was used: automated exposure control. COMPARISON: None. FINDINGS: Image quality: Diagnostic Bones: There is superior endplate fracture of L1, extending to the posterior cortex with minimal retropulsion. Height loss is less than 50%. No traumatic subluxation otherwise. Mild background degenerative changes. Soft tissues: No significant paravertebral soft tissue collection. No retroperitoneal hematoma in the partially visualized abdomen. Sacroiliac degenerative changes also partially seen. IMPRESSION: L1 compression fracture, extending to the posterior cortex with minimal retropulsion. Less than 50% height loss. Dictated by: Jesus Stafford M.D. on 07/13/2024 at 12:38 Approved by: Jesus Stafford M.D. on 07/13/2024 at 12:40
--- NOTE | 2024-07-13 11:41 | ED_ITS ---
HPI - Back Pain/Injury <Debby Horner PA-C - Last Filed: 07/13/24 13:28> General Chief Complaint: Back Pain/Injury Stated Complaint: back pain from previous fall Time Seen by Provider: 07/13/24 10:41 Source: patient History of Present Illness HPI Narrative: Ms. Lemons is a very pleasant 88-year-old female with a past medical history of fall on 06/26/2024 with subsequent right humeral head/neck fracture, AFib on Eliquis, hypertension, hyperlipidemia, CHF, thyroid nodule who presents to the emergency department for right-sided low back pain after a fall 06/26/24. medicine study. Patient was initially seen in the emergency department on 06/26/2024 after a trip and fall while the patient was in the hospital for a thyroid nuclear medicine study. Patient had fell forward landing on her nose and catching herself with her right arm. The patient denied back pain at that time. ER workup revealed a comminuted, displaced, angulated fracture of the right humeral head and neck which was subsequently reduced in the ER. The patie nt was requiring oxygen after sedation so she was admitted to the hospital for further evaluation. During that ED stay the patient although had a CT scan of her head and neck which revealed no acute abnormalities. Patient was eventually discharged and follow up with orthopedics outpatient who recommended no surgical intervention but that she continue wearing the sling. Patient states about 3 da ys after her discharge from the hospital, she bent forward and noticed pain in the right side of her low back which has been persistent since then. She occasionally takes hydrocodone or Flexeril for the pain which only temporarily helps. She had some constipation from taking the hydrocodone yesterday. She continues to be ambulatory and denies any lower extremity numbness, tingling, weakness however due to her right-sided low back pain and her right shoulder pain she has had limited mobility. Reports some sensation of pins and needles in her dorsal right forearm since breaking her shoulder. Denies fevers, chills, dysuria, hematuria, bowel or bladder incontinence, saddle anesthesia, new trauma. Her daughter is with her and contributes to the history. Related Data Home Medications Medication Instructions Recorded Confirmed MULTIVITAMIN (MULTI-VITAMINS) 1 tab PO Q DAY ##0 02/17/11 06/26/24 calcium carbonate 600 mg-vitamin 1 cap PO QDAY ##0 02/17/11 06/26/24 D3 10 mcg (400 unit) capsule (Calcium 600 with Vitamin D3) cholecalciferol (vitamin D3) 10 300 unit PO QDAY ##0 02/17/11 06/26/24 mcg (400 unit) capsule (Vitamin D3) omega 4-amj-fpv-fish oil 1,000 mg 1,000 mg PO QDAY ##0 02/17/11 06/26/24 (120 mg-180 mg) capsule (Fish Oil) simvastatin 40 mg tablet (Zocor) 20 mg PO QPM ##0 02/17/11 06/26/24 losartan 50 mg tablet 50 mg PO BID ##0 05/16/17 06/26/24 melatonin 5 mg tablet 5 mg PO QPM ##0 05/16/17 06/26/24 vitamins A,C,B-iqgy-vrdogz 4,296 1 cap PO QDAY ##0 05/16/17 06/26/24 mcg-226 mg-90 mg capsule (PreserVision AREDS) alendronate 70 mg tablet 70 mg PO QWEEK 12/26/22 06/26/24 amiodarone 200 mg tablet 200 mg PO DAILY 12/26/22 06/26/24 amlodipine 2.5 mg tablet 2.5 mg PO DAILY 12/26/22 06/26/24 budesonide 3 mg 6 mg PO DAILY 12/26/22 06/26/24 capsule,delayed,extended release metoprolol tartrate 25 mg tablet 25 mg PO BID 12/26/22 06/26/24 trazodone 100 mg tablet 100 mg PO QPM 12/26/22 06/26/24 apixaban 2.5 mg tablet 2.5 mg PO BID 06/26/24 06/26/24 estradiol 0.01% (0.1 mg/gram) 0.01 applic vaginal 2XW 06/26/24 06/28/24 vaginal cream furosemide 40 mg tablet (Lasix) 20 mg PO DAILY 06/26/24 06/26/24 Previous Rx's Medication Instructions Recorded hydrocodone 5 mg-acetaminophen 325 1 tab PO Q6H PRN pain #30 tabs 06/28/24 mg tablet Allergies Allergy/AdvReac Type Severity Reaction Status Date / Time amoxicillin [AMOXICILLIN] Allergy Intermediate Hives Verified 12/27/22 11:11 sulfamethoxazole Allergy Verified 02/14/21 19:51 [From ] trimethoprim [From ] Allergy Verified 02/14/21 19:51 Review of Systems <Debby Horner PA-C - Last Filed: 07/13/24 13:28> Review of Systems ROS Unobtainable: All systems reviewed & are unremarkable except as noted in HPI and below Patient History <Debby Horner PA-C - Last Filed: 07/13/24 13:28> Medical History Chronic anticoagulation Paroxysmal atrial fibrillation with rapid ventricular response Hyperlipidemia CAD (coronary artery disease) Hypertension Social History household members: spouse Smoking Status: Never smoker alcohol intake: never Smoking Status: Never smoker alcohol intake frequency: a few times a month Substance Use Type: does not use Exam <Debby Horner PA-C - Last Filed: 07/13/24 13:28> Narrative Exam Narrative: GENERAL: 88 year old patient appears stated age. Well-developed patient, in no acute distress, but discomfort with moving. HEAD: Atraumatic. Normocephalic. EYES: Extraocular motions intact. No scleral icterus. No injection or drainage. ENT: Nose without bleeding, purulent drainage. NECK: Trachea midline. Cervical ROM intact. CARDIOVASCULAR: Regular rate and rhythm during exam. RESPIRATORY: ?Nonlabored respirations. ?Speaking in clear, full sentences. ?Clear to auscultation. GASTROINTESTINAL: Abdomen soft, non-tender, nondistended. EXTREMITIES: Lower extremities with 1+ pitting edema BL. 2+ palpable DP pulse RLE, 1+ palpable DP pulse LLE. No erythema or increased warmth. RUE with very limited movement of R shoulder, ecchymosis along anterior right shoulder and chest wall. Mild swelling of right hand with strong radial pulse. BACK: Ecchymosis along the right lower posterior flank. Subjective pain over the right paraspinal lumbar region with no tenderness. No midline bony tenderness or palpable step-offs or crepitus. NEURO: AOx3. ?Clear speech. ? SKIN: Ecchymosis on posterior right lower flank and ecchymosis on right anterior shoulder and chest wall. Initial Vital Signs Initial Vital Signs: Vital Signs Temperature 98.4 F 07/13/24 10:23 Pulse Rate 101 H 07/13/24 10:23 Respiratory Rate 15 07/13/24 10:23 Blood Pressure 176/76 H 07/13/24 10:23 Pulse Oximetry 95 07/13/24 10:23 Oxygen Delivery Method Room Air 07/13/24 10:23 <Pal Stark MD - Last Filed: 07/13/24 20:05> Initial Vital Signs Initial Vital Signs: Vital Signs Temperature 98.4 F 07/13/24 10:23 Pulse Rate 101 H 07/13/24 10:23 Respiratory Rate 15 07/13/24 10:23 Blood Pressure 176/76 H 07/13/24 10:23 Pulse Oximetry 95 07/13/24 10:23 Oxygen Delivery Method Room Air 07/13/24 10:23 Course <Debby Horner PA-C - Last Filed: 07/13/24 13:28> Orders Ordered: ED Orders 07/13/24 11:38 XR chest 1V Stat 07/13/24 11:39 CT lumbar spine wo con Stat CT thoracic spine wo con Stat Discontinued Medications Acetaminophen (Acetaminophen 325 Mg Tablet) 650 mg PO NOW ONE Stop: 07/13/24 11:38 Last Admin: 07/13/24 11:42 Dose: 650 mg Documented By: BARBARA Hydrocodone Bitart/Acetaminophen (Hydrocodone/Acet 5/325 Tablet) 1 tab PO NOW ONE Stop: 07/13/24 11:38 Last Admin: 07/13/24 11:42 Dose: 1 tab Documented By: BARBARA Vital Signs Vital signs: Vital Signs - 8 hr 07/13/24 13:38 Pulse Rate 98 H Respiratory Rate 20 Blood Pressure 154/70 H Pulse Oximetry 94 Oxygen Delivery Method Room Air <Pal Stark MD - Last Filed: 07/13/24 20:05> Orders Ordered: ED Orders 07/13/24 11:38 XR chest 1V Stat 07/13/24 11:39 CT lumbar spine wo con Stat CT thoracic spine wo con Stat Discontinued Medications Acetaminophen (Acetaminophen 325 Mg Tablet) 650 mg PO NOW ONE Stop: 07/13/24 11:38 Last Admin: 07/13/24 11:42 Dose: 650 mg Documented By: BARBARA Hydrocodone Bitart/Acetaminophen (Hydrocodone/Acet 5/325 Tablet) 1 tab PO NOW ONE Stop: 07/13/24 11:38 Last Admin: 07/13/24 11:42 Dose: 1 tab Documented By: BARBARA Vital Signs Vital signs: Vital Signs - 8 hr 07/13/24 13:38 Pulse Rate 98 H Respiratory Rate 20 Blood Pressure 154/70 H Pulse Oximetry 94 Oxygen Delivery Method Room Air MDM - Back Pain/Injury <Debby Horner PA-C - Last Filed: 07/13/24 13:28> Medical Records Attestation: I reviewed the patient's medical records. Medical records narrative: Extensive review of ED visit on 06/26 and hospital discharge on 06/28/2024. MDM Narrative Medical decision making narrative: 88-year-old female with a past medical history of AFib on anticoagulation, CHF, hypertension, hyperlipidemia, thyroid nodule, right humeral head/neck fracture presents to the emergency department for right low back pain after fall 06/26/24. Differential diagnosis includes but is not limited to rib fracture, thoracic fracture, lumbar fracture, sacral fracture, pneumonia, muscle strain, etc. Patient presents with her daughter who contributes to the history. On exam patient is in no acute distress, nontoxic appearing, obvious discomfort with movement in the stretcher. She does ambulate independently. Lower extremity sensation intact to light touch and pulses intact. She has bruising on the right posterior flank in the right shoulder/chest wall from prior injury. When patient was seen in the ER after the fall, she had no back pain at the time and therefore imaging of the back was not obtained. States that right low back pain became noticeable a few days after discharge. We will obtain CT imaging of the thoracic and lumbar spine in addition to chest x-ray. Patient has been following with orthopedics outpatient for right shoulder fracture and she was recommended to continue wearing sling. Right arm is neurovascularly intact. We will treat pain with full dose of Tylenol and 5 mg of hydrocodone. Patient feeling much better after ER pain medication. Chest x-ray reveals no acute abnormality. Thoracic CT reveals no acute abnormality. Lumbar CT reveals L1 compression fracture, extending to the posterior cortex with a minimal retropulsion. Less than 50% height loss. At 1300 I discussed the patient's imaging findings with orthopedic surgery on-call Dr. Merchant. He recommends the patient decrease movement and bending of the spine and call the office on Tuesday for outpatient follow up. At that time he can order patient TLSO brace which she is interested in. Patient and her daughter verbalized understanding of all information and they are agreeable to outpatient follow up. We extensively discussed pain medication regimen and the risks, she already has prescription for hydrocodone 5 mg with 325 acetaminophen, recommended additional 650 mg dose every 8 hours in addition to gentle movement. Patient is stable for discharge at this time. Discharge Plan Departure Patient Disposition: Home Clinical Impression: Closed compression fracture of L1 vertebra Qualifiers: Encounter type: initial encounter Qualified Code(s): S32.010A - Wedge compression fracture of first lumbar vertebra, initial encounter for closed fracture Fall Qualifiers: Encounter type: subsequent encounter Qualified Code(s): W19.XXXD - Unspecified fall, subsequent encounter Low back pain Qualifiers: Chronicity: acute Back pain laterality: right Sciatica presence: without sciatica Qualified Code(s): M54.50 - Low back pain, unspecified Instructions: DI for Vertebral Fracture Activity Restrictions/Additional Instructions: Every 8 hours, take 1 hydrocodone-acetaminophen with an additional 650mg of acetaminophen (that is two normal strength tylenol). Please avoid bending over or twisting. Continue wearing your sling. On Tuesday, call to schedule an appointment with [facility] Dr. Merchant at . You have been prescribed a short course of narcotic medications. These are potentially dangerous and addictive medications that should be used carefully. While on these medications you cannot drive or operate heavy machinery. Additionally, you cannot sign legal documents or perform any duties such as this. Many people get constipated on narcotic medications so it would be advisable to discuss stool softeners with the pharmacist when you tow picker your prescription. Please understand that we cannot provide further refills of narcotics or controlled substances through the ED and your pain management will need to be through your Primary Care Provider Please follow up with your primary care doctor within the next 2-3 days for ER follow-up. (If you do not have a PCP you can call [phone]. ?to schedule an appointment with an [facility] Primary Care Provider) IF YOU DEVELOP ANY NEW OR WORSENING SYMPTOMS, RETURN TO THE ER! Please read the attached instructions, they highlight more specific treatments and interventions for you at home. Thank you for letting me participate in your care, Debby Horner PA-C Prescriptions: No Action simvastatin [Zocor] 40 MG tablet 20 mg PO QPM Qty: 0 omega 4-ids-hrv-fish oil [Fish Oil] 1,000 MG capsule 1,000 mg PO QDAY Qty: 0 calcium carbonate-vitamin D3 [Calcium 600 with Vitamin D3] 600 MG/200 IU capsule 1 cap PO QDAY Qty: 0 MULTIVITAMIN (MULTI-VITAMINS) 1 tab PO Q DAY Qty: 0 cholecalciferol (vitamin D3) [Vitamin D3] 400 unit capsule 300 unit PO QDAY Qty: 0 losartan 50 MG tablet 50 mg PO BID Qty: 0 melatonin 5 MG tablet 5 mg PO QPM Qty: 0 PreserVision AREDS 1 EACH capsule 1 cap PO QDAY Qty: 0 alendronate 70 mg tablet 70 mg PO QWEEK Patient Comments: Take 70 mg by mouth once a week trazodone 100 mg tablet 100 mg PO QPM Patient Comments: take 1 tablet by mouth nightly amiodarone 200 mg Tablet 200 mg PO DAILY amlodipine 2.5 mg Tablet 2.5 mg PO DAILY budesonide 3 mg Capsule,Delayed,Extend.Release 6 mg PO DAILY metoprolol tartrate 25 mg Tablet 25 mg PO BID furosemide [Lasix] 40 mg tablet 20 mg PO DAILY apixaban 2.5 mg Tablet 2.5 mg PO BID estradiol 0.01 % (0.1 mg/gram) cream 0.01 applic vaginal 2XW hydrocodone-acetaminophen 5-325 mg tablet 1 tab PO Q6H PRN (Reason: pain) Qty: 30 0RF Referrals: Sharmila Palmer MD [Primary Care Provider] - Stand Alone Forms: Patient Portal/API/Survey ED Sign-out <Pal Stark MD - Last Filed: 07/13/24 20:05> Sign Out Provider Sign Out Attestation: I was immediately available in the department for consultation. This documentation has been reviewed and I agree with assessment and plan. Supervised by Pal Stark MD
[2024-07-13] MEDS: HYDROCODONE/ACET 5/325 TABLET 1 TAB PO (11:42)
[2024-07-13] MEDS: ACETAMINOPHEN 325 MG TABLET 650 MG PO (11:42)
--- NOTE | 2024-07-13 13:14 | PC.NURSE ---
Pt states that she is getting relief with pain medication.
[2024-07-13 13:38] VITALS: BP 154/70; PULSE 98; RESP 20; O2SAT 94
== END 2024-07-13 13:39 | disposition home or self-care (01) ==
PROVIDERS: Emergency Provider Physician Assistant; PCP Family Medicine
DX: S32.010D Wedge compression fracture of first lumbar vertebra, subsequent encounter for fracture with routine healing (principal); M54.50 Low back pain, unspecified; W01.0XXD Fall on same level from slipping, tripping and stumbling without subsequent striking against object, subsequent encounter; Z79.01 Long term (current) use of anticoagulants
CPT/HCPCS: 71045; 72128; 72131; 99283; 99284

== ENCOUNTER → 2024-08-03 13:03 | Outpatient (CLI) | payer MEDICARE, SELFPAY ==
[2024-06-26 21:33] VITALS: BMI 24.7
--- NOTE | 2024-08-03 13:05 | DI.US.S_ITS ---
PROCEDURE: US THYROID INDICATIONS: LOW TSH LEVEL TECHNIQUE: Real-time scanning was performed of the thyroid gland, with image documentation. COMPARISON: None. FINDINGS: Thyroid: Right lobe measures 6.7 x 3.2 x 2 point cm. Left lobe measures 4 x 1.5 x 1.8 cm. Isthmus is 1.2 cm thick. Echotexture is heterogeneous. Dominant right thyroid nodule is solid and isoechoic. TR 3. This measures 5.4 x 3.9 x 3.1 cm. Sampling recommended. Left inferior medial nodule measures 1.3 x 1.1 x 0.6 cm. It is either solid or partially cystic solid and hypoechoic. Conservatively, TR 4. Follow-up recommended Left isthmus nodule measures 2.1 x 1.6 x 0.8 cm. It is solid and isoechoic. TR 3. Follow-up recommended. Multiple other subcentimeter nodules are present, not requiring dedicated management per consensus guidelines. IMPRESSION: Thyroid nodules and recommendations above. ACR TI-RADS definitions and recommendations: TI-RADS 1 (benign): 0 points. FNA not needed. TI-RADS 2 (not suspicious): 2 points. FNA not needed. TI-RADS 3: 3 points. * FNA if 2.5 cm or larger, follow up if 1.5 cm or larger (at 1, 3, and 5 years). TI-RADS 4: 4-6 points. * FNA if 1.5 cm or larger, follow up if 1 cm or larger (at 1, 2, 3, and 5 years). TI-RADS 5: 7 points or more. * FNA if 1 cm or larger, follow up if 0.5 cm or larger (every year for 5 years). Dictated by: Jesus Stafford M.D. on 08/04/2024 at 11:00 Approved by: Jesus Stafford M.D. on 08/04/2024 at 11:02
== END ==
PROVIDERS: PCP Family Medicine; Referring Provider Family Medicine; Visit Provider Family Medicine
DX: E04.2 Nontoxic multinodular goiter (principal); R79.89 Other specified abnormal findings of blood chemistry
CPT/HCPCS: 76536

== ENCOUNTER → 2024-09-07 12:15 | Outpatient (CLI) | payer MEDICARE, SELFPAY ==
[2024-06-26 21:33] VITALS: BMI 24.7
--- NOTE | 2024-09-07 | PATH_ITS ---
Note [facility] Accession Number: [id number] TESTS RESULT FLAG UNITS REF RANGE LAB Clinician Provided Cytology Information No. of containers..02 Previously Prepared Cytology Slide 35 Unknown Storage/container code(s) Source: RIGHT THYROID NODULE DIAGNOSIS: RIGHT THYROID NODULE BENIGN. BETHESDA CATEGORY II. SPECIMEN CONSISTS OF BENIGN FOLLICULAR CELLS, HEMOSIDERIN-LADEN MACROPHAGES, COLLOID, AND BLOOD. THIS PATTERN IS CONSISTENT WITH FOLLICULAR NODULAR DISEASE. Pathologist ICD10: E04.1 Signed out by: Piedad Hoover DO, Pathologist NPI- [id number] Performed by: Guevara Gonzalez, Ammonia Refrigeration Worker ([facility]) Gross description: 30 CC, PINK, CLEAR RECIEVED: IN CYTOLYT WITH 6 ALCOHOL FIXED AND 6 QUICK STAINED SLIDES ALSO 1 RNA VIAL WILL ON 03-22-2025.VO /VDU 09/10/[address] [place] [address] FLAG LEGEND: L-Low Normal,H-High Normal,LL-Alert Low,HH-Alert High <-Panic Low,>-Panic High,A-Abnormal,AA-Critical Abnormal Performed at: 01 =Z [facility] [address], [place] [address] Mike Ayoub MD, Performed at: [address] [facility], [place], [place] [id number] MD Mike Ayoub MD Phone: [phone]
--- NOTE | 2024-09-07 12:17 | DI.US.S_ITS ---
PROCEDURE: US FINE NEEDLE ASPIRATION INDICATIONS: THYROID NODULE TECHNIQUE: The indications, alternatives, benefits, risks, and complications of the procedure were explained to the patient. Written informed consent was obtained and placed in the chart. The thyroid region was examined sonographically and a site was chosen for ultrasound guided percutaneous sampling. The skin was prepared and draped in the usual fashion, and anesthetized with 1% lidocaine infiltrated from the skin down to the thyroid gland. Multiple passes were then performed, with contents emptied into an appropriate pathology specimen container. A bandage was applied to the area of access at completion of the study. COMPARISON: None. FINDINGS: Location(s) of lesion(s) sampled: Right lobe of the thyroid Trezevant: 25 gauge hypodermic needles. Number of passes: 6 Medications: 1% lidocaine for local anaesthesia. Complications: None. IMPRESSION: Successful ultrasound-guided thyroid nodule fine needle aspiration, with cytology results pending. Please see chart below for management recommendations based on cytology results. [facility] ReportingRecommendationsNon-diagnostic* Repeat US-guided FNA, with on-site cytology evaluation if possible. * Repeated non-diagnostic nodules without high suspicion US features: close observation vs surgical consult. * Consider surgery if nodule has high suspicion US features, grows >20% in 2 dimensions on followup, or patient has clinical risk factors for malignancy. Benign* If nodule has high suspicion US features: repeat US and FNA within 12 months. * If nodule has low to intermediate suspicion US features: repeat US at 12-24 months. If nodule grows (20% increase in at least 2 dimensions, with minimal increase of 2 mm or >50% change in volume), or development of new suspicious US features, then repeat FNA or continue followup. * If nodule has very low suspicion US features: followup US at >24 months. Atypia of undetermined significance, follicular lesion of undetermined significanceRepeat FNA, molecular testing, followup US, or surgical consult.Follicular neoplasm, suspicious for follicular neoplasmSurgical consult; also consider molecular testing. Suspicious for malignancySurgical consult.MalignantSurgical consult. Dictated by: Timothy Dixon M.D. on 09/11/2024 at 14:17 Approved by: Timothy Dixon M.D. on 09/11/2024 at 14:18
== END ==
PROVIDERS: PCP Family Medicine; Referring Provider Family Medicine; Visit Provider Family Medicine
DX: E04.1 Nontoxic single thyroid nodule (principal)
CPT/HCPCS: 10005

== ENCOUNTER → 2025-02-12 08:38 | Outpatient (CLI) | payer MEDICARE, SELFPAY ==
[2024-06-26 21:33] VITALS: BMI 24.7
--- NOTE | 2025-02-12 | DI.US.S_ITS ---
PROCEDURE: US THYROID INDICATIONS: THYROID NODULE TECHNIQUE: Real-time scanning was performed of the thyroid gland, with image documentation. COMPARISON: [facility], US, US FINE NEEDLE ASPIRATION, 09/07/2024, 12:41. [facility], CT, CT ANGIO CHEST, 11/28/2024, 9:57. [facility], US, US THYROID, 08/03/2024, 13:20. FINDINGS: Thyroid: Right lobe measures 7.9 x 4.1 x 2.8 cm. Left lobe measures 4.5 x 1.5 x 1.2 cm. Isthmus is 0.5 cm thick. Echotexture is homogeneous. Nodule number: 1 Location: Right mid Size: 5.3 x 4.5 x 2.3 cm. (Previously 5.4 x 3.9 x 3.1 cm). Composition: Solid Echogenicity: Isoechoic Shape: wider than tall. Margins: Smooth Echogenic foci: None Total points: 3 ACR TI-RADS category: TR 3, mildly suspicious. Prior FNA. Nodule number: 2 Location: Left inferior Size: 1.9 x 1.6 x 0.9 cm. (Previously 1.3 x 1.1 x 0.6 cm) Composition: Spongiform Echogenicity: Hypoechoic Shape: wider than tall. Margins: Smooth Echogenic foci: None Total points: 2 ACR TI-RADS category: TR 2, not suspicious Nodule number: 3 Location: Left isthmus Size: 1.2 x 1.1 x 0.4 cm. (Previously 2.1 x 1.6 x 0.8 cm). Composition: Solid Echogenicity: Hypoechoic Shape: wider than tall. Margins: Smooth Echogenic foci: None Total points: 4 ACR TI-RADS category: TR 4, moderately suspicious IMPRESSION: 1. Right mid thyroid nodule measuring 5.3 cm. TR 3. Not significantly changed. Prior FNA. 2. Left isthmus thyroid nodule measuring 1.2 cm. TR 4. Stable to decreased. Recommend follow-up thyroid ultrasound in 1 year. ACR TI-RADS definitions and recommendations: TI-RADS 1 (benign): 0 points. FNA not needed. TI-RADS 2 (not suspicious): 2 points. FNA not needed. TI-RADS 3: 3 points. * FNA if 2.5 cm or larger, follow up if 1.5 cm or larger (at 1, 3, and 5 years). TI-RADS 4: 4-6 points. * FNA if 1.5 cm or larger, follow up if 1 cm or larger (at 1, 2, 3, and 5 years). TI-RADS 5: 7 points or more. * FNA if 1 cm or larger, follow up if 0.5 cm or larger (every year for 5 years). Dictated by: Deepak Garcia M.D. on 02/12/2025 at 13:26 Approved by: Deepak Garcia M.D. on 02/12/2025 at 13:32
== END ==
PROVIDERS: PCP Family Medicine; Referring Provider Family Medicine; Visit Provider Family Medicine
DX: E04.2 Nontoxic multinodular goiter (principal)
CPT/HCPCS: 76536

== ENCOUNTER → 2025-03-22 10:09 | Outpatient (CLI) | payer MEDICARE, SELFPAY ==
[2024-06-26 21:33] VITALS: BMI 24.7
--- NOTE | 2025-03-22 10:12 | DI.RAD.S_ITS ---
PROCEDURE: XR CERVICAL SPINE 4V OR 5V INDICATIONS: FALL, SEQUELA, NECK PAIN TECHNIQUE: 5 views of the cervical spine acquired. COMPARISON: None. FINDINGS AND IMPRESSION: Moderate cervical spondylosis, with multilevel disc space height loss, arthropathy, and osteophytes. No acute fracture or traumatic subluxation is seen. On oblique views, possible mild bilateral neural foraminal narrowing is present. Vascular calcifications. No pathologic prevertebral swelling. If there is high concern for further derangement, consider MRI evaluation. Dictated by: Jesus Stafford M.D. on 03/22/2025 at 14:16 Approved by: Jesus Stafford M.D. on 03/22/2025 at 14:18
--- NOTE | 2025-03-22 10:13 | DI.RAD.S_ITS ---
PROCEDURE: XR CHEST 2V INDICATIONS: FALL SEQUELA, INTERCOSTAL PAIN TECHNIQUE: 2 views of the chest were acquired. COMPARISON: [facility], CR, XR CHEST 1V, 07/13/2024, 11:38. [facility], CR, XR CHEST 1V, 06/26/2024, 15:43. FINDINGS AND IMPRESSION: No dense airspace disease. No pneumothorax. Possible trace left pleural effusion. Suspected calcified granuloma in the right lower lung. Nonacute appearing right proximal humerus fracture partially evaluated. Cardiomegaly again seen. If there is further concern for traumatic injury, consider CT. Dictated by: Jesus Stafford M.D. on 03/22/2025 at 14:15 Approved by: Jesus Stafford M.D. on 03/22/2025 at 14:16
== END ==
PROVIDERS: PCP Family Medicine; Referring Provider Family Medicine; Visit Provider Family Medicine
DX: I51.7 Cardiomegaly (principal); I70.90 Unspecified atherosclerosis; M47.812 Spondylosis without myelopathy or radiculopathy, cervical region; M48.02 Spinal stenosis, cervical region; M54.2 Cervicalgia; R07.82 Intercostal pain; W19.XXXS Unspecified fall, sequela
CPT/HCPCS: 71046; 72050